=== PATIENT | male | born 1935 | race Caucasian/White ===

== ENCOUNTER 2017-11-22 17:30 | Outpatient (RCR) | payer MEDICARE, OTHER, SELFPAY ==
--- NOTE | 2017-09-28 11:25 | HP.PTEVAL_ITS ---
Patient's Visit Information SHERRY MOHAMUD is a 82 year old M referred to Physical Therapy by Gabriel CASTILLO with a diagnosis of abnormality of gait. Date of Evaluation: 09/28/17 Physical Therapist: Janice Mckinnon - Visit Plan Frequency: 2x /Week Duration: 4 Weeks Plan: 2X/ week for 4 weeks for testing on the NeuroCom, LE strengthening, balance activities with HEP!!!! - Subjective Subjective: Pt reports that he has weakness in his lower legs and a problems with balance. This has been off and on the last 6 mo to a year. Pt had pneumonia about a year ago but he does not feel that had contributed. Pt reports that if he leans fw he will keep going. Sometimes when he is doing things he will feel a little off balance. He feels that if he falls he can not get back up unless he has somethign to hold onto. Pt fell within the last 3 mo twice at the most. He was walking the dog on uneven ground and fell. He is worse on uneven ground. No dizziness. He takes pills for BP/ He can go up and down stairs with a railing. Pt is unable to get up out of a chair unless he uses his arms. He has a lounge chair at home but needs to use his arms. - Objective Sit to stand: needs UE's to be able to get up out of the chair. Gait: Walks with slightly decreased stride bit overall a normal gait pattern. LE MMT:B hip abd 4-/5, B hip ext 3-/5, R hip flexion 4-/5, L 4/5, B knee flex 4/5, B knee ext 4/5. Heel X3 no problems and toe raise X 3 pt had increase LOB retro and fw to the point he took a step fw to catch himself. FGA: 23. CATSIB 110/120. Tight gastro and HS B. Stairs: up and down recip with 1 hand rail with evidence of LE weakness the farther up the stairs he got. - Balance Scores Functional Gait Assessment Score: 23 % Disability: 23.3400 CATSIB Score (Max score 120 seconds): 110 - Goals Goal 1:: I HEP Goal Time Frame: 4-6 Weeks Goal 2:: Be able to get up from a chair without UE's 5/5 times Goal Time Frame: 4-6 Weeks Goal 3:: Increase hip abd and hip extension, and hip flex strength by 1/2 muscle grade (LE MMT:B hip abd 4-/5, B hip ext 3-/5, R hip flexion 4-/5, L 4/5, B knee flex 4/5, B knee ext 4/5 Goal Time Frame: 6-8 Weeks Goal 4:: Be able to heel and toe raise X 10 with good balance without UE support Goal Time Frame: 6-8 Weeks Goal 5:: Increase FGA by 4 points to 27/30 Goal Time Frame: 6-8 Weeks Goal 6:: Test pt on Neurocom Goal Time Frame: 2 Weeks - Rehabilitation Potential Rehabilitation Potential: Good - Anticipated Interventions Patient/Client Instruction: Educate patient on: Plan of Care For the Purpose of:: To improve muscle performance and motor function, To improve ability of physical actions for home/community/work/leisure, To improve gait and locomotor functions, To increase flexibility/ROM, To improve balance Therapeutic Exercise to Include: Strength training, Balance training, Flexibilty training, Gait and locomotor training For the Purpose of:: To improve muscle performance and motor function, To improve ability to perform ADL's, To increase tolerance to activity/condition/ position, To improve gait and locomotor functions, To improve balance Functional Training to Include: Gait training For the Purpose of:: To improve gait and locomotor functions Thank you for the opportunity to evaluate your patient. For Medicare and Medicare HMO plans, please review the plan of care and approve it. It will need to be FAXED BACK to us at [phone] for Medicare purposes. Please let me know if there are questions or concerns regarding this plan of care. Physician Signature: Date:
--- NOTE | 2017-10-05 14:18 | HP.PTCOM ---
PT Communication Note 10/05/[address] Gabriel CASTILLO, Thank you for the referral of Agustin Winn to our clinic. He was tested on our NeuroCom Equ[employer] system today and enclosed are the patients test results. On the Sensory Organization Test (SOT), he scored slightly below age related norms for overall composite score. He has good use of his somatosensory system to help him maintain his balance. He had decrease use of his vestibular system to help him control his balance and a slight decrease in vision. His overall ankle strategy is ankle dominant. His COG is slightly fw. On the Motor Control Test (MCT), his overall reaction time is good for someone of his age compared to age related norms. On the Limits of Stability Test (LOS), he had LOB to the point he touched the wall when controlling his weight shift to the Left. Weight shifting in all other planes was normal. At this point, we will see the pt 2X/ week for 4 weeks to work on vestibular inputs, picking objects up from the floor and working on control of not falling forward, LE strengthening with HEP. Sincerely, Janice Mckinnon Contact Information
--- NOTE | 2017-10-29 13:33 | HP.PTREVAL_ITS ---
DR.VVELAS Mikey It has been my pleasure to treat SHERRY MOHAMUD over the last 7 visits for abnormality of gait. Please see the progress note below for an update on the physical therapy plan of care! Subjective: Pt reports that he thinks that he is getting better. He reports that he thinks his balance is better and that he has no pain Objective/Function: sit to stand 4/5. FGA: 24 (still had trouble with walking with horizontal head turns). LE MMT: MMT:B hip abd 4-/5, B hip ext 3-/5, R hip flexion 4/5, L 4/5, B knee flex 4/5, B knee ext 4/5. Pt was able to do X 10 heel raises without UE support without LOB. Pt had some LOB but caught self at 7/10 toe raises Plan Plan: Give for HEP: heel and toe raises, clam shells, bridges for home next visit. See the pt 2X/ week for 3 weeks for challenges to his vestibular system (on and off the NeuroCOM) as well as working on bending fw without falling fw, WALKING WITH HEAD TURNS, functional activities, LE strengthening with HEP Goals Goal 1:: I HEP Goal Time Frame: 4-6 Weeks Goal Progress: Progressing Goal 2:: Be able to get up from a chair without UE's 5/5 times Goal Time Frame: 4-6 Weeks Goal Progress: Progressing Goal 3:: Increase hip abd and hip extension, and hip flex strength by 1/2 muscle grade (LE MMT:B hip abd 4-/5, B hip ext 3-/5, R hip flexion 4-/5, L 4/5, B knee flex 4/5, B knee ext 4/5 Goal Time Frame: 6-8 Weeks Goal Progress: Progressing Goal 4:: Be able to heel and toe raise X 10 with good balance without UE support Goal Time Frame: 6-8 Weeks Goal Progress: Progressing Goal 5:: Increase FGA by 4 points to 27/30 Goal Time Frame: 6-8 Weeks Goal Progress: Progressing Goal 6:: Test pt on Neurocom Goal Time Frame: 2 Weeks Goal Progress: Goal Met Anticipated Interventions Patient/Client Instruction: Educate patient on: Plan of Care For the Purpose of:: To improve muscle performance and motor function, To improve ability of physical actions for home/community/work/leisure, To improve gait and locomotor functions, To increase flexibility/ROM, To improve balance Therapeutic Exercise to Include: Strength training, Balance training, Flexibilty training, Gait and locomotor training For the Purpose of:: To improve muscle performance and motor function, To improve ability to perform ADL's, To increase tolerance to activity/condition/ position, To improve gait and locomotor functions, To improve balance Functional Training to Include: Gait training For the Purpose of:: To improve gait and locomotor functions Please do not hesitate to contact me at [phone] by phone or Fax: if you have questions or concerns regarding this new plan of care! Sincerely, Janice Mckinnon
--- NOTE | 2017-11-24 17:23 | HP.PTDCNRP_ITS ---
HP - Discharge Summary (1) - Patient Information SHERRY MOHAMUD was seen in my office for initial evaluation on 09/28/17. The following Plan of Care was established for this patient: Initial Frequency: 2x /Week Initial Duration: 4 Weeks - Anticipated Interventions Patient/Client Instruction: Educate patient on: Plan of Care For the Purpose of:: To improve muscle performance and motor function, To improve ability of physical actions for home/community/work/leisure, To improve gait and locomotor functions, To increase flexibility/ROM, To improve balance Therapeutic Exercise to Include: Strength training, Balance training, Flexibilty training, Gait and locomotor training For the Purpose of:: To improve muscle performance and motor function, To improve ability to perform ADL's, To increase tolerance to activity/condition/ position, To improve gait and locomotor functions, To improve balance Functional Training to Include: Gait training For the Purpose of:: To improve gait and locomotor functions This patient was last seen in our office . Pertinent comments regarding their Physical therapy will appear below: At this point I will be discontinuing this patient from physical therapy. I would be happy to see this patient again in the future if found appropriate by the physician. Thank you! Janice Mckinnon
== END 2017-11-22 19:00 | disposition home or self-care (01) ==
LOC: PT 17:30
PROVIDERS: Family Provider Internal Medicine; PCP Internal Medicine; Visit Provider Internal Medicine
DX: R26.9 Unspecified abnormalities of gait and mobility (principal)
CPT/HCPCS: 97110; 97161; 97530; 97750

== ENCOUNTER → 2017-12-08 08:23 | Outpatient (CLI) | payer MEDICARE, OTHER, SELFPAY ==
[2017-12-08 09:19] LABS: AST(SGOT) 18 U/L (15-37); Alanine Aminotransfer ALT/SGPT 16 U/L (16-61); Albumin, Serum 3.5 g/dL (3.2-5.0); Alkaline Phosphatase 89 U/L (45-117); Bilirubin, Direct 0.23 mg/dL (0.00-0.30); Cholesterol 119 mg/dL (200); Globulin 3.8 g/dL (2.2-4.2); High Density Lipoprotein 34 mg/dL; Protein, Total 7.3 g/dL (6.4-8.2); Triglycerides 157 mg/dL; Very Low Density Lipoprotein 31 mg/dL (5-40)
== END ==
PROVIDERS: Family Provider Internal Medicine; PCP Internal Medicine; Visit Provider Internal Medicine Cardiovascular Disease
DX: E78.5 Hyperlipidemia, unspecified (principal); I10 Essential (primary) hypertension; I25.10 Atherosclerotic heart disease of native coronary artery without angina pectoris; Z95.1 Presence of aortocoronary bypass graft
CPT/HCPCS: 36415; 80061; 80076

== ENCOUNTER → 2018-12-13 09:19 | Outpatient (CLI) | payer MEDICARE, OTHER, SELFPAY ==
[2018-12-13 08:53] VITALS: BMI 18.3
[2018-12-13 10:27] LABS: Absolute Lymphocyte Count 0.57 X10^3/ul (0.83-4.51); Absolute Neutrophil Count 6.4 X10^3/uL (2.0-7.7); Basophil# 0.02 X10^3/uL; Basophil% 0.3 % (0-1); Differential Indicated SCAN CRITERIA MET; Eosinophil# 0.11 X10^3/uL; Eosinophils% 1.5 % (0-5); Hematocrit 42.6 % (40-54); Hemoglobin 13.6 g/dl (13.0-16.5); Lymphocyte # 0.57 X10^3/ul (4.0); Lymphocyte % 7.6 % (19-41); Mean Corp Hgb Conc 31.9 g/gl (32-36); Mean Corpuscular Hgb 31.5 pg (27.0-32.0); Mean Corpuscular Volume 98.6 fL (80-94); Mean Platelet Vol. 10.3 fl (6.2-12.0); Monocyte# 0.33 X10^3/uL; Monocyte% 4.4 % (0-10); Neutrophil # 6.44 X10^3/uL (2.7-7.7); Neutrophil % 86.1 % (47-70); POSITIVE COUNT NO; POSITIVE DIFFERENTIAL YES; POSITIVE MORPHOLOGY NO; Platelet Count 463 K/mm3 (150-450); RBC Distribution Width CV 15.2 % (11.6-14.6); RBC Distribution Width SD 52.8 fl (35.1-43.9); Red Blood Count 4.32 M/mm3 (4.6-6.2); White Blood Count 7.5 K/mm3 (4.4-11.0)
[2018-12-13 11:43] LABS: AST(SGOT) 17 U/L (15-37); Alanine Aminotransfer ALT/SGPT 20 U/L (16-61); Albumin, Serum 3.6 g/dL (3.2-5.0); Alkaline Phosphatase 80 U/L (45-117); Anion Gap 5 (5-15); BUN 25 mg/dL (7-18); BUN/Creat Ratio 24.8 RATIO (10-20); Bilirubin, Direct 0.07 mg/dL (0.00-0.30); Calcium,Total 8.6 mg/dL (8.5-10.1); Chloride 112 mmol/L (98-107); Cholesterol 122 mg/dL (200); Creatinine, Serum 1.01 mg/dL (0.70-1.30); EST Glomerular Filtration Rate 75 mL/min (>60); Est Glom Filt Rate - Afr Amer 90 mL/min (>60); Globulin 3.2 g/dL (2.2-4.2); Glucose 128 mg/dL (74-106); High Density Lipoprotein 35 mg/dL; Potassium 4.1 mmol/L (3.5-5.1); Protein, Total 6.8 g/dL (6.4-8.2); Sodium Level 141 mmol/L (136-145); Thyroid Stim Hormone (TSH) 2.03 uIU/mL (0.358-3.74); Triglycerides 132 mg/dL; Very Low Density Lipoprotein 26 mg/dL (5-40)
== END ==
PROVIDERS: Family Provider Internal Medicine; PCP Internal Medicine; Referring Provider Internal Medicine Cardiovascular Disease; Visit Provider Internal Medicine Cardiovascular Disease
DX: I10 Essential (primary) hypertension (principal); E78.00 Pure hypercholesterolemia, unspecified
CPT/HCPCS: 36415; 80048; 80061; 80076; 84443; 85025

== ENCOUNTER 2019-07-14 08:08 | Emergency (ER) | payer MEDICARE, OTHER, SELFPAY ==
[2018-12-13 08:53] VITALS: BMI 18.3
[2019-07-14 08:10] VITALS: BP 164/69; PULSE 83; RESP 16; TEMP 36.9; O2SAT 99; BMI 19.2
--- NOTE | 2019-07-14 08:15 | CT_ITS ---
STUDY: CT BRAIN WITHOUT CONTRAST REASON FOR EXAM: Male, 83 years old. Laceration to the left side of the head due to a fall. RADIATION DOSAGE (If Supplied By Facility): CTDIvol = ( 44.99 ) mGy, DLP = ( 812.98 ) mGycm TECHNIQUE: Transaxial CT imaging of the brain was performed without administration of intravenous contrast material. Individualized dose optimization techniques were used for this CT. COMPARISON: No relevant priors. FINDINGS: Small scalp hematoma overlying the left parietal bone. Normal calvarium. There is moderate cerebral atrophy with widening of the extra-axial spaces and ventricular dilatation. There are areas of decreased attenuation within the white matter tracts of the supratentorial brain, consistent with microvascular disease changes. Normal basal ganglia and thalami. Normal brainstem. There is mild cerebellar atrophy. There is no intracranial hemorrhage. There are no findings of an acute ischemic infarction. Atherosclerotic calcification of the vertebral arteries and cavernous portions of the internal carotid arteries bilaterally. Normal visualized paranasal sinuses. CT/Brain/Head without Contrast IMPRESSION: Chronic involutional changes of the brain. Electronically Signed: Devan Alamo, at 9:17 EDT , Service support ,
--- NOTE | 2019-07-14 08:16 | CT_ITS ---
STUDY: CT CERVICAL SPINE WITHOUT CONTRAST REASON FOR EXAM: Male, 83 years old. Laceration to the left side of the head due to a fall. RADIATION DOSAGE (If Supplied By Facility): CTDIvol = ( 14.83 ) mGy, DLP = ( 298.98 ) mGycm TECHNIQUE: High resolution transaxial imaging was performed without contrast material. Sagittal and coronal images were reconstructed. Individualized dose optimization techniques were used for this CT. COMPARISON: None FINDINGS: Normal craniovertebral junction. There are degenerative changes of the anterior atlantoaxial articulation. Normal odontoid process. Normal cervical lordosis. Normal vertebral bodies and posterior osseous elements. C2-3: Facet joint osteoarthritis and hypertrophy on the left side. No significant stenosis seen. C3-4: Minimal anterior listhesis of C3 on C4 most likely secondary to the facet joint osteoarthritis and hypertrophy worse on the right side. Uncovertebral arthrosis with moderate degree of bilateral neural foraminal stenosis. C4-5: Mild degree of disc space narrowing. Spondylosis. Facet joint osteoarthritis and hypertrophy worse on the right side. No significant stenosis seen. C5-6: Mild degree of disc space narrowing. Spondylosis. Uncal vertebral arthrosis. Mild degree of bilateral neural foraminal stenosis. C6-7: Moderate degree of disc space narrowing. Spondylosis. Uncovertebral arthrosis and facet joint osteoarthritis. C7-T1: Normal endplates. Normal disc height and morphology. Normal central canal and intervertebral neuroforamina. Normal visualized soft tissue structures. CT/Spine Cervical without Contras IMPRESSION: Multilevel degenerative changes, as described above. Electronically Signed: Devan Alamo, at 8:56 EDT , Service support ,
--- NOTE | 2019-07-14 08:17 | ED.VIS.GEN ---
History of Present Illness Chief Complaint: Head Injury Narrative: 83-year-old male was walking into his office this morning when he tripped on a step and struck the left side of his head against asphalt. He did not lose consciousness. He recalls all details the event. He complains of mild left shoulder pain as well but otherwise denies other injuries. He was able to get back up on his own. He has no lower extremity pain. He has a mild headache at this time. He sustained a laceration to the left side of his head. The onset of his symptoms was sudden. The severity is moderate. There are no relieving or exacerbating factors. Capacity - Capacity Assessment Tool Can the patient make a choice & communicate that choice?: Yes Past Medical History - Allergies and Home Meds Allergies/Adverse Reactions: Allergies No Known Allergies Allergy (Verified 07/14/19 08:12) Primary Care Physician: Gabriel Mares MD [Primary Care Provider] - Prior records reviewed: Yes Surgical History: coronary bypass surgery - ?3, tonsillectomy Smoking Status: Former smoker - Family History Paternal Family History: Family History (Last Reviewed 12/13/18 @ 09:04 by Buster Rosario MD) Father CAD (coronary artery disease) Myocardial infarction Mother No problems noted. Family History: Reports: Seizures Sibling Family History: Family History (Last Reviewed 12/13/18 @ 09:04 by Buster Rosario MD) Father CAD (coronary artery disease) Myocardial infarction Mother No problems noted. Family History: Reports: Diabetes Offspring Family History: Family History (Last Reviewed 12/13/18 @ 09:04 by Buster Rosario MD) Father CAD (coronary artery disease) Myocardial infarction Mother No problems noted. Family History: Reports: High Cholesterol Review of Systems All systems negative except as indicated General: Denies: Chills, Fever, Sweats Eyes: Denies: Visual changes - bilaterally, Diplopia ENT: Denies: Rhinorrhea, Sore throat Cardiovascular: Denies: Chest pain, Palpitations Respiratory: Denies: Dyspnea, Cough, Dyspnea on exertion Gastrointestinal: Denies: Abdominal pain, Nausea, Vomiting, Diarrhea, Melena, Hematochezia Genitourinary: Denies: Dysuria, Hematuria, Frequency Musculoskeletal: Denies: Back pain, Extremity Pain Skin: Denies: Rash, Wounds Neurological: Reports: Headache. Denies: Weakness, Numbness Physical Exam Vital Signs/Narrative: Vital Signs Temp Pulse Resp BP Pulse Ox 07/14/19 08:10 98.5 F 83 16 164/69 H 99 General: Well nourished, Well developed Head: Normocephalic, Atraumatic, - - 1cm laceration left scalp Eyes: Perrl, EOMI ENT: Moist mucous membranes, No rhinorrhea Neck: Supple, Nontender Cardiovascular: Regular rate, Regular rhythm, No murmurs Respiratory: No distress, CTA bilaterally, Chest nontender Abdomen: Soft, Nontender, Nondistended, Normal bowel sounds Back: Nontender, Normal Inspection Extremities: No edema, Tenderness - left shoulder laterally Skin: Normal color, No rash Neurological: Alert, Oriented x3, Cranial nerves II-XII grossly intact, Normal Strength, Normal Sensation Psychological: Normal affect, Normal Mood Diagnostic/Tx/Re-eval - Medical Decision Making I reviewed his images. He has a nondisplaced left clavicle fracture at the distal aspect. He was placed in a sling. He will be referred to orthopedics. His CT brain and cervical spine are both negative. He looks well. He can ambulate here without difficulty. Neurologic exam is normal. I examined his laceration under direct lighting with good hemostasis. The tissue was contused and there is possibly a less than half centimeter laceration. We discussed repairing it however it is quite small and the bleeding is well controlled so we both agreed to allow this to heal by secondary intention. He will return here for any changes or concerns. He was discharged in stable condition. ED Disposition - Plan for ED Patient: Disposition: Home or Assisted Living Diagnosis: Closed left clavicular fracture, Concussion without loss of consciousness, initial encounter, Scalp laceration Instructions: HEAD INJURY, No Wake-Up (Adult), FRACTURE, Clavicle Referrals: Keith Guevara DO [STAFF PHYSICIAN] -
--- NOTE | 2019-07-14 08:43 | RAD_ITS ---
STUDY: X-RAY - LEFT SHOULDER REASON FOR EXAM: Male, 83 years old. Left shoulder pain following a fall. TECHNIQUE: 4 view(s) of the shoulder. COMPARISON: None. FINDINGS: Normal glenohumeral articulation. Normal acromioclavicular joint. Normal acromion. Nondisplaced fracture of the distal aspect of the left clavicle. Normal humeral head and visualized proximal humerus. The soft tissue structures are unremarkable. Normal visualized pulmonary apex. RAD/Shoulder min 2 Views IMPRESSION: Nondisplaced fracture of the lateral distal aspect of the left clavicle. Electronically Signed: Devan Alamo, at 9:24 EDT , Service support ,
== END 2019-07-14 09:57 | disposition home or self-care (01) ==
PROVIDERS: Emergency Provider Emergency Medicine; Family Provider Internal Medicine; PCP Internal Medicine
DX: S01.01XA Laceration without foreign body of scalp, initial encounter (principal); S42.002A Fracture of unspecified part of left clavicle, initial encounter for closed fracture; S06.0X0A Concussion without loss of consciousness, initial encounter; S42.035A Nondisplaced fracture of lateral end of left clavicle, initial encounter for closed fracture; Z82.49 Family history of ischemic heart disease and other diseases of the circulatory system; Z87.891 Personal history of nicotine dependence; W18.09XA Striking against other object with subsequent fall, initial encounter; Y93.9 Activity, unspecified; Y92.89 Other specified places as the place of occurrence of the external cause; Y99.9 Unspecified external cause status; Z95.1 Presence of aortocoronary bypass graft
CPT/HCPCS: 70450; 72125; 73030; 99284

== ENCOUNTER 2020-04-10 21:13 | Emergency (ER) | payer MEDICARE, SELFPAY ==
[2020-04-10 21:14] VITALS: BP 161/76; PULSE 90; RESP 16; TEMP 36.8; O2SAT 97; BMI 18.8
--- NOTE | 2020-04-10 22:11 | CT_ITS ---
STUDY: CT BRAIN WITHOUT CONTRAST REASON FOR EXAM: Male, 84 years old. REACHING OVER FOR PHONE, FELL AND HIT HEAD ON CONCRETE RADIATION DOSAGE (If Supplied By Facility): CTDIvol = ( 44.99 ) mGy, DLP = ( 863.60 ) mGycm TECHNIQUE: Transaxial CT imaging of the brain was performed without administration of intravenous contrast material. Individualized dose optimization techniques were used for this CT. COMPARISON: July 14, 2019 FINDINGS: There is subcutaneous edema overlying the left frontal calvarium consistent with recent trauma. Normal calvarium. There is mild cerebral atrophy with widening of the extra-axial spaces and ventricular dilatation. There are areas of decreased attenuation within the white matter tracts of the supratentorial brain, consistent with microvascular disease changes. Normal basal ganglia and thalami. Normal brainstem. There is mild cerebellar atrophy. There is no intracranial hemorrhage. There are no findings of an acute ischemic infarction. Normal visualized paranasal sinuses. CT/Brain/Head without Contrast IMPRESSION: Chronic involutional changes of the brain. Small vessel ischemia. Electronically Signed: Alyse Rome MD at 22:41 EDT Tel , Service support ,
--- NOTE | 2020-04-10 22:22 | ED.DCSUM_ITS ---
History of Present Illness Chief Complaint: Fall Informant: Patient, Family Narrative: 84-year-old male presenting with laceration to the top of his head. He states he was bending over to grab his phone lost his balance and hit his head. He states this is nothing new for him. He states he does not have much pain. He is not dizzy or lightheaded. He has no confusion. His daughter is accompanying him and states this is not out of the usual for him. He does have gait issues. Last tetanus is unknown. She believes he is been acting at his baseline. Past Medical History - Allergies and Home Meds Allergies/Adverse Reactions: Allergies No Known Allergies Allergy (Verified 04/10/20 21:17) Primary Care Physician: Gabriel Mares MD [Primary Care Provider] - Prior records reviewed: Yes Surgical History: coronary bypass surgery - ?3, tonsillectomy Lives: Alone Smoking Status: Never smoker Alcohol: None Drugs: None - Family History Paternal Family History: Family History (Last Reviewed 12/13/18 @ 09:[address] Buster Rosario MD) Father CAD (coronary artery disease) Myocardial infarction Mother No problems noted. Family History: Reports: Seizures Sibling Family History: Family History (Last Reviewed 12/13/18 @ 09:[address] Buster Rosario MD) Father CAD (coronary artery disease) Myocardial infarction Mother No problems noted. Family History: Reports: Diabetes Offspring Family History: Family History (Last Reviewed 12/13/18 @ 09:[address] Buster Rosario MD) Father CAD (coronary artery disease) Myocardial infarction Mother No problems noted. Family History: Reports: High Cholesterol Review of Systems General: Denies: Chills, Fever Eyes: Denies: Visual changes - bilaterally, Diplopia ENT: Denies: Rhinorrhea, Sore throat Cardiovascular: Denies: Chest pain, Palpitations Respiratory: Denies: Dyspnea, Cough, Dyspnea on exertion Gastrointestinal: Denies: Abdominal pain, Nausea, Vomiting, Diarrhea, Melena, Hematochezia Genitourinary: Denies: Dysuria, Hematuria, Frequency Skin: Reports: - - Laceration to the top of the scalp Neurological: Denies: Headache, Weakness Psych: Denies: Depression Physical Exam Vital Signs/Narrative: Vital Signs Temp Pulse Resp BP Pulse Ox 04/10/20 21:14 98.2 F 90 16 161/76 H 97 Inital Vital Signs reviewed: Yes General: Well nourished, Well developed, Acute Distress Head: Normocephalic, - - Laceration to the top of the scalp. Eyes: Perrl, EOMI, - - No apparent facial bone trauma. ENT: TM's clear, - - Hemotympanum. No nasal bone trauma. Neck: Nontender Cardiovascular: Regular rate, Regular rhythm Respiratory: No distress Skin: - - Laceration to the top of the scalp approximately 7 cm which is partial-thickness. No active bleeding. No skull deformities. Neurological: Alert, Oriented x3 Psychological: Normal affect Diagnostic/Tx/Re-eval Clinical Impression(s) from Imaging Studies Brain CT 04/10/20 22:11 IMPRESSION: Chronic involutional changes of the brain. Small vessel ischemia. Electronically Signed: Alyse Rome MD at 22:41 EDT Tel , Service support , - Medical Decision Making Presents with scalp laceration after fall when he was trying to reach over and lemon picker his phone. He has no focal neurologic symptoms either before or after. Her daughter and he both feel he is at his baseline. Aspirin daily and did sustain a laceration of his head so I did CT his brain which does not show any acute process. His tetanus was updated. His wound was sutured. He was given wound instructions and return precautions. Patient stable for discharge this time. Procedures - Lacerations No standard instances Depth: Skin Shape: Linear Prep: Sterile Conditions, Chlorhexadine Laceration repair: Irrigated, - - l.e.t. topical Irrigated (ml): 250 Number of Sutures/[place]: 5 - [facility] ED Disposition - Plan for ED Patient: Diagnosis: Closed head injury, Scalp laceration Instructions: ED Head Injury Adult, ED Laceration All Closures Referrals: Gabriel Mares MD [Primary Care Provider] -
[2020-04-10] MEDS: Lidocaine/Epi/Tetracaine 50 ML 1 APPLIC TOPICAL (22:27)
[2020-04-10] MEDS: Diphth,Pertuss(Acell),Tet Vac 0.5 ML Vial IM (22:45)
[2020-04-11 00:03] VITALS: BP 155/72; PULSE 74; RESP 16; O2SAT 97
== END 2020-04-11 00:04 | disposition home or self-care (01) ==
LOC: ED 22:34
PROVIDERS: Emergency Provider Student in an Organized Health Care Education/Training Program; PCP Internal Medicine
DX: S01.01XA Laceration without foreign body of scalp, initial encounter (principal); W22.8XXA Striking against or struck by other objects, initial encounter; Y93.9 Activity, unspecified; Y92.89 Other specified places as the place of occurrence of the external cause; Y99.9 Unspecified external cause status; R26.9 Unspecified abnormalities of gait and mobility; Z23 Encounter for immunization; Z82.49 Family history of ischemic heart disease and other diseases of the circulatory system
CPT/HCPCS: 12002; 70450; 90471; 90715; 99283

== ENCOUNTER 2020-10-11 11:26 | Outpatient (RCR) | payer MEDICARE, SELFPAY | END 2020-10-11 23:59 | LOC: IMMUN 11:26 | PROVIDERS: PCP Internal Medicine; Visit Provider Family Medicine | DX: Z23 Encounter for immunization (principal) | CPT/HCPCS: 0011A; 0012A; 91301 ==

== ENCOUNTER 2021-10-19 15:12 | Observation (INO) | payer MEDICARE, SELFPAY ==
[2021-10-19] VITALS (7 sets, daily range): BP systolic 101–133; BP diastolic 40–63; PULSE 72–88; RESP 14–20; TEMP 36.4–38.2; O2SAT 96–100; BMI 21.4; BMI 19.9
--- NOTE | 2021-10-19 15:25 | CT_ITS ---
EXAMINATION : Head CT w/out contrast HISTORY : headache, confusion COMPARISON : 04/10/2020. TECHNIQUE : Multiple contiguous axial images were obtained from the skull base to the vertex without intravenous contrast. A radiation dose optimization technique was used for this scan. FINDINGS : There is no evidence for acute intracranial hemorrhage, mass effect, or midline shift. There is no extra-axial fluid collection. There are periventricular white matter changes consistent with chronic microvascular ischemic disease. There is sulcal widening and ventricular enlargement consistent with cerebral atrophy. 5 mm hypodensity in the left caudate nucleus, unchanged since prior. The skull base and calvarium are unremarkable. The orbits are unremarkable. The paranasal sinuses are clear. The mastoid air cells are well-aerated. The soft tissues are unremarkable. CT/Brain/Head without Contrast IMPRESSION: No acute intracranial abnormality. 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 Chronic involutional and ischemic changes of the brain. Electronically Signed: Simon Frank MD at 16:18 EST ,
--- NOTE | 2021-10-19 15:25 | RAD_ITS ---
INDICATION: cough fever EXAMINATION/TECHNIQUE: X-RAY - XR Chest 1 View COMPARISON: 07/14/2019. FINDINGS: The lungs are clear. Sternal cerclage wires and vascular clips are present from a prior sternotomy and coronary artery bypass graft procedure (CABG). Tortuous and calcified thoracic aorta. The heart is not enlarged. No pleural effusion or pneumothorax. Degenerative changes of the thoracic spine. RAD/Chest 1 View (Portable) IMPRESSION: No acute radiographic abnormalities. Electronically Signed: Simon Frank MD at 16:20 EST ,
--- NOTE | 2021-10-19 15:25 | EKG12_ITS ---
Test Reason : FEVER Blood Pressure : / mmHG Vent. Rate : 080 BPM Atrial Rate : 080 BPM P-R Int : 166 ms QRS Dur : 076 ms QT Int : 368 ms P-R-T Axes : 023 049 036 degrees QTc Int : 424 ms Normal sinus rhythm ST & T wave abnormality, consider lateral ischemia Abnormal ECG Confirmed by DONALD DAVALOS, DU ([id number]), production editor DENA CARO ([id number]) on 10/20/2021 11:04:14 AM Referred By: BB Confirmed By:DU BENNETT MD
--- NOTE | 2021-10-19 15:27 | EX.ED.DYSGE1 ---
HPI History of Present Illness Chief Complaint: Fever Informant: patient and EMS Narrative Narrative: Patient states he has been ill for a total of 7 or 10 days according to the patient who is confused, history is somewhat limited but he can perform review of systems. Feeling weak, fevers, he members having headache and vomiting but not today. He denies any pain in his chest or abdomen. He has edema in his legs that he states is not new. Daughter arrived later and provided better history; he has a chronic cough that is not necessarily worse, he started vomiting and having confusion with a fever last night and worsened to this morning. She states he has had some occasional episodes of disorientation but not like this, this is much worse. He also was diagnosed with normal pressure hydrocephalus, which they have been monitoring without a shunt. [facility] Medical History (Updated 10/19/21 @ 17:[address] 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 Type II diabetes mellitus Home Medications aspirin 81 mg PO QHS 04/02/16 [History Last Taken 04/01/16] atorvastatin 20 mg PO QHS 04/02/16 [History Last Taken 04/01/16] ramipril 5 mg PO DAILY 04/02/16 [History Last Taken 04/02/16] bevacizumab 25 mg/mL intravenous solution 1.25 mg INTRAVIT .COMPLEX 12/08/17 [History Last Taken Unknown] hydroxyurea 500 mg capsule 500 mg PO .COMPLEX 12/08/17 [History Last Taken Unknown] ciprofloxacin HCl 1 drp OPHTHALMIC (EYE) Q4 04/10/20 [History Last Taken Unknown] metoprolol tartrate 25 mg tablet 25 mg PO BID #180 tab 10/07/21 [Rx Last Taken Unknown] tamsulosin 0.4 mg PO DAILY 10/19/21 [History Last Taken Unknown] Allergy/AdvReac Type Severity Reaction Status Date / Time No Known Allergies Allergy Verified 10/19/21 15:23 Family History Father CAD (coronary artery disease) Myocardial infarction Mother , age 80+, cause not listed No problems noted. Surgical History History of bronchoscopy History of left heart catheterization S/P CABG x 3 Social History Smoking Status: Never smoker ROS ROS ED Constitutional Constitutional ED: Reports fatigue, fever(s) and weakness; Denies chills Eyes Eyes: Denies change in vision or diplopia ENT ENT ED: Denies rhinorrhea or sore throat Cardiovascular Cardiovascular: Denies chest pain or palpitations Respiratory/Chest Respiratory/Chest: Reports cough; Denies dyspnea Gastrointestinal Gastrointestinal: Reports other Details: Vomiting in recent past but not currently nauseated ; Denies abdominal pain or diarrhea Genitourinary Genitourinary ED: Denies dysuria or hematuria Musculoskeletal Musculoskeletal: Denies back pain or neck pain Integumentary Denies abscess or rash Neurologic Neurologic: Reports confusion; Denies headache(s), paresthesias or weakness Psychiatric Psychiatric: Denies anxiety or suicidal thoughts EXAM Physical Exam Const Vital Signs: 10/19/21 15:14 10/19/21 15:19 10/19/21 15:29 Temperature 100.8 F H Temperature Source Oral Pulse Rate 88 Respiratory Rate 20 H Respiratory Effort Normal Non-Labored Respiratory Pattern Normal Blood Pressure 133/59 H Blood Pressure Mean 83 Pulse Ox 99 Oxygen Delivery Method Room Air Room Air 10/19/21 17:09 Temperature Temperature Source Pulse Rate 79 Respiratory Rate 14 Respiratory Effort Respiratory Pattern Blood Pressure 104/63 Blood Pressure Mean 76 Pulse Ox 97 Oxygen Delivery Method Room Air Positive well nourished and well developed General Appearance ED: well developed and NAD HEENT Reports moist mucous membranes normocephalic and atraumatic Eyes PERRL and EOMs intact bilaterally Neck full ROM and supple Resp normal respiratory effort and clear to auscultation bilaterally Cardio regular rate, regular rhythm and no murmurs GI non-tender and non-distended Auscultation: normoactive bowel sounds Palpation: soft; Negative for pulsatile mass Back/Spine no CVA tenderness General Back: other FROM Extremity normal to inspection General Extremety ED: Negative for edema, pulses abnormal or tenderness General Extremity: Negative for edema or pulses abnormal Neuro CN's II-XII intact bilaterally and no sensory deficits noted Sensorium / Orientation: awake, alert, oriented to person and oriented to place; Negative for oriented to time Meningeal Signs: no meningeal signs Motor Exam: strength 5/5 throughout Skin no rashes or lesions noted and no wounds MDM MDM MDM Narrative Medical decision making narrative: Labs are remarkable for the lack of a leukocytosis, but his Covid is negative as is his influenza swab, his troponin is nonspecifically elevated at 124, which may or may not be related to his mild CRISTI, which appears to be prerenal. Chest x-ray shows no evidence of source of his fever, and his lactic acid is within normal limits. CT head shows no obvious reason for his mental status change, which I suspect is related more to his fever. His urine shows no sign of acute infection. It is possible he has a false negative Covid test, I will send a PCR and given his confusion and altered mental status and elevated troponin, plan is to admit him to observation telemetry. Lab Data Attestation: I reviewed the patient's lab results. Labs: Laboratory Results - last 24 hr 10/19/21 10/19/21 10/19/21 15:18 15:18 15:18 WBC 5.8 RBC 3.18 L Hgb 11.0 L Hct 33.5 L MCV 105.3 H MCH 34.6 H MCHC 32.8 RDW Std Deviation 58.8 H RDW Coeff of Andrew 15.1 H Plt Count 346 MPV 10.7 Immature Gran % (Auto) 0.900 Neut % (Auto) 93.4 H Lymph % (Auto) 3.1 L [place] % (Auto) 2.6 Eos % (Auto) 0.0 Baso % (Auto) 0.0 Absolute Neuts (auto) 5.4 Absolute Lymphs (auto) 0.18 L Nucleated RBC % 0 Differential Comment SCANNED PT 14.9 INR 1.2 APTT 35.3 Sodium 144 Potassium 4.3 Chloride 114 H Carbon Dioxide 25.0 Anion Gap 5 BUN 24 H Creatinine 1.63 H Estim Creat Clear Calc 31.48 Est GFR (MDRD) Af Amer 52 L Est GFR (MDRD) Non-Af 43 L BUN/Creatinine Ratio 14.7 Glucose 145 H Lactic Acid Calcium 7.8 L Total Bilirubin 0.80 AST 22 ALT 26 Alkaline Phosphatase 87 Troponin I High Sens 124 H* Total Protein 6.2 L Albumin 3.0 L Globulin 3.2 Albumin/Globulin Ratio 0.9 Urine Color Urine Clarity Urine pH Ur Specific [place] Urine Protein Urine Glucose (UA) Urine Ketones Urine Occult Blood Urine Nitrite Urine Bilirubin Urine Urobilinogen Ur Leukocyte Esterase 10/19/21 10/19/21 15:18 16:54 WBC RBC Hgb Hct MCV MCH MCHC RDW Std Deviation RDW Coeff of [place] Plt Count MPV Immature Gran % (Auto) Neut % (Auto) Lymph % (Auto) [place] % (Auto) Eos % (Auto) Baso % (Auto) Absolute Neuts (auto) Absolute Lymphs (auto) Nucleated RBC % Differential Comment PT INR APTT Sodium Potassium Chloride Carbon Dioxide Anion Gap BUN Creatinine Estim Creat Clear Calc Est GFR (MDRD) Af Amer Est GFR (MDRD) Non-Af BUN/Creatinine Ratio Glucose Lactic Acid 1.9 Calcium Total Bilirubin AST ALT Alkaline Phosphatase Troponin I High Sens Total Protein Albumin Globulin Albumin/Globulin Ratio Urine Color Yellow Urine Clarity Clear Urine pH 5.0 Ur Specific [place] 1.020 Urine Protein 100 H Urine Glucose (UA) Normal Urine Ketones Negative Urine Occult Blood 50 H Urine Nitrite Negative Urine Bilirubin Negative Urine Urobilinogen Normal Ur Leukocyte Esterase Negative Radiography Diagnostic Testing: Clinical Impression(s) from Imaging Studies Brain CT 10/19/21 15:25 IMPRESSION: No acute intracranial abnormality. 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 Chronic involutional and ischemic changes of the brain. Electronically Signed: Simon Frank MD at 16:18 EST , Chest X-Ray 10/19/21 15:25 IMPRESSION: No acute radiographic abnormalities. Electronically Signed: Simon Frank MD at 16:20 EST , EKG Initial EKG: Attestation: I personally reviewed and interpreted this EKG as follows: Interpretation: Sinus Rhythm, No Acute Injury Pattern and Non-Specific ST Changes (Diffusely except for anterior septal normal T waves) Prior EKG tracings: available for review Prior: Unchanged Discharge Plan Dx/Rx/DC Orders Clinical Impression: Altered mental status, Elevated troponin, CRISTI (acute kidney injury), Fever Disposition Disposition: Acute Care Hospital [facility]
[2021-10-19] MEDS: Acetaminophen 325 MG Tablet 650 MG PO (15:39)
[2021-10-19] MEDS: 0.9% Normal Saline 1,000 ML 100 ML IV ×2 (15:41→19:57)
[2021-10-19 15:46] LABS: Absolute Lymphocyte Count 0.18 X10^3/uL (0.83-4.51); Absolute Neutrophil Count 5.4 X10^3/uL (2.0-7.7); Hematocrit 33.5 % (40-54); Lymphocyte # 0.18 X10^3/ul (0.83-4.51); Lymphocyte % 3.1 % (19-41); Mean Corp Hgb Conc 32.8 g/dL (32-36); Mean Corpuscular Hgb 34.6 pg (27.0-32.0); Mean Corpuscular Volume 105.3 fL (80-94); Mean Platelet Vol. 10.7 fl (6.2-12.0); Monocyte# 0.15 X10^3/uL; Monocyte% 2.6 % (0-10); NRBC Flagged by Analyzer 0 % (0-5); Neutrophil # 5.43 X10^3/uL (2.7-7.7); Neutrophil % 93.4 % (47-70); POSITIVE DIFFERENTIAL YES; Platelet Count 346 K/mm3 (150-450); RBC Distribution Width CV 15.1 % (11.6-14.6); RBC Distribution Width SD 58.8 fl (35.1-43.9); Red Blood Count 3.18 M/mm3 (4.6-6.2); White Blood Count 5.8 K/mm3 (4.4-11.0)
[2021-10-19 15:51] LABS: International Normalized Ratio 1.2; Partial Thromboplast Time 35.3 Seconds (24.1-36.2); Prothrombin Time (Protime)PT. 14.9 SECONDS (11.7-14.9)
[2021-10-19 15:58] LABS: Lactic Acid 1.9 mmol/L (0.4-1.9)
[2021-10-19 16:00] LABS: ALB/GLOB Ratio 0.9 RATIO (0.9-2.4); AST(SGOT) 22 U/L (15-37); Alanine Aminotransfer ALT/SGPT 26 U/L (16-61); Alkaline Phosphatase 87 U/L (45-117); Anion Gap 5 (5-15); BUN 24 mg/dL (7-18); BUN/Creat Ratio 14.7 RATIO (10-20); Calcium,Total 7.8 mg/dL (8.5-10.1); Chloride 114 mmol/L (98-107); Creatinine, Serum 1.63 mg/dL (0.70-1.30); EST Glomerular Filtration Rate 43 mL/min (>60); Est Glom Filt Rate - Afr Amer 52 mL/min (>60); Estimated Creatinine Clearance 31.48 ml/min; Globulin 3.2 g/dL (2.2-4.2); Glucose 145 mg/dL (74-106); Potassium 4.3 mmol/L (3.5-5.1); Protein, Total 6.2 g/dL (6.4-8.2); Sodium Level 144 mmol/L (136-145)
[2021-10-19 16:03] LABS: Troponin-I HS 124 pg/mL (3.0-78.0)
[2021-10-19 16:12] LABS: Differential Indicated SCAN CRITERIA MET
[2021-10-19 16:14] LABS: Differential Comment SCANNED
[2021-10-19 16:59] LABS: Bacteria 0 SEEN /hpf (None Seen); Mucous, Urine 0 SEEN /hpf (<or=2+); White Blood Cells 0 SEEN /hpf (0-5)
[2021-10-19 17:12] LABS: Color, Urine Yellow (Yellow); Glucose, Dipstick Normal (Normal); Ketone-Dipstick Negative (Negative); Leukocyte Esterase-Dipstick Negative /ul (Negative); Nitrite-Dipstick Negative (Negative); Occult Blood-Urine 50 /ul (Negative); Protein-Dipstick 100 mg/dl (Negative); Urine Bilirubin Dipstick Negative (Negative); Urine Clarity Clear (Clear); Urine Urobilinogen Normal (Normal)
--- NOTE | 2021-10-19 17:15 | HP.PCM.HOS_ITS ---
HPI - General General Date of Admission: 10/19/21 HPI Narrative SHERRY MOHAMUD, is a 86 M with an extensive PMH as outlined who was admitted with a complaint of fever with headache and said he had been vomiting but had not vomited today. Daughter was by his bedside. He denied any chest pain, nausea or diarrhea. He apparently had a chronic cough which has not gotten worse. Patient had a history of NPH but did not have a shunt inserted and was being conservatively managed. He complained of some unsteadiness on his feet, and says he hasnt had therapy since the end of August.Vitals in the ED were blood pressure of 104/43 with pulse of 79, respiratory rate of 14 and oxygen sats of 97% percent on room air. His temperature was 100.8 Fahrenheit. Labs were globin of 11 with WBC of 5.8 and platelets of 346. Chemistry was only significant for creatinine of 1.63 with a baseline of 0.91. Initial high- sensitivity troponin was 124. COVID antigen test was negative. He has received his covid Moderna vaccines and his booster, but cannot remember when he had his booster. Urinalysis was pending. He has been admitted to be managed for fever of unclear origin. [facility] Medical History (Updated 10/19/21 @ 17:[address] 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 Type II diabetes mellitus Home Medications aspirin 81 mg PO QHS 04/02/16 [History Last Taken 04/01/16] atorvastatin 20 mg PO QHS 04/02/16 [History Last Taken 04/01/16] ramipril 5 mg PO DAILY 04/02/16 [History Last Taken 04/02/16] bevacizumab 25 mg/mL intravenous solution 1.25 mg INTRAVIT .COMPLEX 12/08/17 [History Last Taken Unknown] hydroxyurea 500 mg capsule 500 mg PO .COMPLEX 12/08/17 [History Last Taken Unknown] ciprofloxacin HCl 1 drp OPHTHALMIC (EYE) Q4 04/10/20 [History Last Taken Unknown] metoprolol tartrate 25 mg tablet 25 mg PO BID #180 tab 10/07/21 [Rx Last Taken Unknown] tamsulosin 0.4 mg PO DAILY 10/19/21 [History Last Taken Unknown] Allergy/AdvReac Type Severity Reaction Status Date / Time No Known Allergies Allergy Verified 10/19/21 15:23 Family History Father CAD (coronary artery disease) Myocardial infarction Mother , age 80+, cause not listed No problems noted. Surgical History History of bronchoscopy History of left heart catheterization S/P CABG x 3 Social History Smoking Status: Never smoker ROS Constitutional Constitutional: Reports anorexia, fatigue, fever(s), malaise and weakness; Denies change in weight or chills Eyes Eyes: Denies change in eye color ENT HEENT: Denies dysphagia, headache(s), nasal congestion, nasal discharge or sore throat Cardiovascular Cardiovascular: Denies chest pain, dyspnea on exertion, edema, lightheadedness, orthopnea, paroxysmal nocturnal dyspnea or rapid heart rate Respiratory/Chest Respiratory/Chest: Reports cough; Denies dyspnea, productive cough, shortness of breath at rest, shortness of breath with exertion or wheezing Gastrointestinal Gastrointestinal: Denies abdominal pain, constipation or diarrhea Genitourinary Genitourinary: Denies burning urination, dysuria or urinary frequency Musculoskeletal Musculoskeletal: Denies arthralgias Neurologic Neurologic: Denies confusion, dizziness, focal weakness or headache(s) Psychiatric Psychiatric: Denies anxiety Endocrine Endocrinology: Denies change in body appearance Hematologic/Lymphatic Hematologic/Lymphatic: Denies anemia Vital Signs Vital Signs Vital Signs: 10/19/21 15:14 10/19/21 15:19 10/19/21 15:29 Temperature 100.8 F H Temperature Source Oral Pulse Rate 88 Respiratory Rate 20 H Respiratory Effort Normal Non-Labored Respiratory Pattern Normal Blood Pressure 133/59 H Blood Pressure Mean 83 Pulse Ox 99 Oxygen Delivery Method Room Air Room Air 10/19/21 17:09 Temperature Temperature Source Pulse Rate 79 Respiratory Rate 14 Respiratory Effort Respiratory Pattern Blood Pressure 104/63 Blood Pressure Mean 76 Pulse Ox 97 Oxygen Delivery Method Room Air Weight Weight: 153 lb 10.595 oz Body Mass Index (BMI) 21.4 Physical Exam Const alert and no apparent distress Orientation / Consciousness: confused HEENT normocephalic and head/scalp atraumatic HEENT Narrative: Dry oral mucosa Eyes PERRL, EOMs intact bilaterally and conjunctivae normal Neck no lymphadenopathy and supple Resp normal respiratory effort, no retractions, no use of accessory muscles and clear to auscultation bilaterally Cardio regular rate, regular rhythm, S1 normal heart sound, S2 normal heart sound and no murmurs GI normal to inspection, nondistended, normoactive bowel sounds, soft to palpation, non-tender and non-distended Extremity normal to inspection and full ROM Extremity Narrative: 1+ bipedal pitting edema Peripheral Pulses: Yes pulses 2+ throughout Skin no rashes or lesions noted Neuro oriented x3 and CN's II-XII intact bilaterally Sensorium / Orientation: awake and alert Psych affect normal Results Lab / Micro Data Result Diagrams: 10/19/21 15:18 10/19/21 15:18 Labs: Laboratory Results - last 24 hr 10/19/21 15:18: WBC 5.8, RBC 3.18 L, Hgb 11.0 L, Hct 33.5 L, MCV 105.3 H, MCH 34.6 H, MCHC 32.8, RDW Std Deviation 58.8 H, RDW Coeff of Andrew 15.1 H, Plt Count 346, MPV 10.7, Immature Gran % (Auto) 0.900, Neut % (Auto) 93.4 H, Lymph % (Auto) 3.1 L, [place] % (Auto) 2.6, Eos % (Auto) 0.0, Baso % (Auto) 0.0, Absolute Neuts (auto) 5.4, Absolute Lymphs (auto) 0.18 L, Nucleated RBC % 0, Differential Comment SCANNED 10/19/21 15:18: PT 14.9, INR 1.2, APTT 35.3 10/19/21 15:18: Sodium 144, Potassium 4.3, Chloride 114 H, Carbon Dioxide 25.0, Anion Gap 5, BUN 24 H, Creatinine 1.63 H, Estim Creat Clear Calc 31.48, Est GFR (MDRD) Af Amer 52 L, Est GFR (MDRD) Non-Af 43 L, BUN/Creatinine Ratio 14.7, Glucose 145 H, Calcium 7.8 L, Total Bilirubin 0.80, AST 22, ALT 26, Alkaline Phosphatase 87, Troponin I High Sens 124 H*, Total Protein 6.2 L, Albumin 3.0 L, Globulin 3.2, Albumin/Globulin Ratio 0.9 10/19/21 15:18: Lactic Acid 1.9 10/19/21 16:54: Urine Color Yellow, Urine Clarity Clear, Urine pH 5.0, Ur Specific [place] 1.020, Urine Protein 100 H, Urine Glucose (UA) Normal, Urine Ketones Negative, Urine Occult Blood 50 H, Urine Nitrite Negative, Urine Bilirubin Negative, Urine Urobilinogen Normal, Ur Leukocyte Esterase Negative Micro: Microbiology 10/19/21 15:32 Mucosa - Nasopharyngeal Influenza Types A,B Direct FA (LADI) - Final 10/19/21 15:17 Nasal Secretion SARS-CoV-2 Antigen (Rapid) - Final Radiology Impression Brain CT 10/19/21 15:25 IMPRESSION: No acute intracranial abnormality. 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 Chronic involutional and ischemic changes of the brain. Electronically Signed: Simon Frank MD at 16:18 EST , Chest X-Ray 10/19/21 15:25 IMPRESSION: No acute radiographic abnormalities. Electronically Signed: Simon Frank MD at 16:20 EST , Assessment & Plan Assessment/Plan (1) Altered mental status: (2) Elevated troponin: (3) CRISTI (acute kidney injury): (4) Fever: PLAN: #Acute metabolic encephalopathy due to acute febrile illness * Etiology of fever is unclear. Chest x-ray is normal. Urinalysis is however pending. * Covid test done was negative and influenza panel was also negative. * Admit to PCU in light of mildly elevated troponins * Hydrate with IV fluids. Tylenol as needed for fever * Get blood cultures. * Hold off on antibiotics for now as patient does not have an elevated white cell count and does not have any clear evidence of fever and this may just be a viral illness * his mentation has also improved and encephalopathy has resolved. * #CRISTI: * Creatinine is 1.60 with a baseline of around 0.91. * Hydrate with IV fluids and trend creatinine. * If creatinine does not trend down, then will pursue further work-up with renal ultrasound and urine electrolytes * #Elevated troponin: * Initial high-sensitivity troponin is 124. * EKG showed no acute ST changes. * Denies any chest pain. * Will cycle high-sensitivity troponin. 2D echo. * Cardiology consult if troponins trend upwards. 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 #Hypertension: On ramipril and metoprolol #Hyperlipidemia: on statin. DVT prophylaxis: Lovenox CODE STATUS:full code * Patient and daughter counseled extensively about different types of CODE STATUS including full code, DNR CCA and DNR CCA. Patient elects to be full code. Total cidy-fl-thmc time 16 minutes. Charges/Coding Visit Charges OBSV E&M: 59988 Initial observation care L3 Procedures Hospitalists Procedures: 76126 Advncd Care Plan 30 Min
[2021-10-19 17:19] LABS: Amorphous Sediment 1+ URATE; Hyaline Cast 0-5 SEEN /lpf (0-5); Red Blood Cells-Urine 0-5 SEEN /hpf (0-5); Squamous Epithelial Cells - UA 0-5 SEEN /hpf (0-5)
--- NOTE | 2021-10-19 18:09 | ECHOD_ITS ---
Reason For Study: Elevated Troponins Procedure This was a 2D Doppler, Color Flow transthoracic echocardiogram. Exam performed portable in patient room. Left Ventricle Normal LV size. The estimated ejection fraction is 60 %. Stage 2 diastolic dysfunction. No regional wall motion abnormalities noted. Right Ventricle Normal RV size. Normal systolic function. Atria Normal left atrium. Normal right atrium. Mitral Valve Normal mitral valve. Tricuspid Valve Normal tricuspid valve. Mild (1+) tricuspid valve insufficiency. Pulmonary artery systolic pressure is 35 mmHg. Aortic Valve Trisinus/trileaflet aortic valve. Mild diffuse aortic valve thickening. Pulmonic Valve Normal pulmonic valve. Great Vessels Normal aortic root. The pulmonary artery is normal size. Normal inferior vena cava. Pericardium/Pleural No pericardial effusion. MMode/2D Measurements & Calculations LVIDd: 4.3 cm IVSd: 0.99 cm Ao root diam: 3.4 cm LVIDs: 3.4 cm LVPWd: 1.0 cm LA dimension: 3.8 cm FS: 22.3 % LAV(MOD-bp): 52.2 ml LA A4 area: 19.3 cm2 RA A4 area: 18.8 cm2 LAV(MOD-bp) Indexed: 28.5 ml/m2 LAV(MOD-sp2): 47.5 ml LAV(MOD-sp4): 53.1 ml Time Measurements MV dec time: 0.17 sec Doppler Measurements & Calculations MV E max suman: 117.4 cm/sec Lat Peak E' Suman: 9.5 cm/sec Med Peak E' Suman: 4.5 cm/sec MV A max suman: 86.1 cm/sec E/E' lat: 12.4 E/E' med: 26.4 MV E/A: 1.4 MV V2 max: 126.2 cm/sec MV P1/2t max suman: 127.1 cm/sec Ao V2 max: 129.0 cm/sec MV max P.4 mmHg MV P1/2t: 67.6 msec Ao max P.7 mmHg MV V2 mean: 50.1 cm/sec MV dec slope: 550.5 cm/sec2 MV mean P.3 mmHg MVA(P1/2t): 3.3 cm2 MV V2 VTI: 42.3 cm LV V1 max: 87.2 cm/sec PA V2 max: 97.3 cm/sec LV V1 max P.0 mmHg PI dec slope: 126.1 cm/sec2 TR max suman: 280.7 cm/sec TR max P.5 mmHg ECHO/Echo Complete Interpretation Summary Normal LV size. The estimated ejection fraction is 60 %. Stage 2 diastolic dysfunction. Pulmonary artery systolic pressure is 35 mmHg. Mild diffuse aortic valve thickening. Ordering Physician: Rose Lopez Referring Physician: Gabriel Mares M.D. Performed By: Alex Leong RCS
--- NOTE | 2021-10-19 18:10 | PCS.PANDOC ---
PANDEMIC DOCUMENTATION INITIATED: Date: 05/05/2021 Time: 190
--- NOTE | 2021-10-19 18:12 | PCS.PANDOC ---
PANDEMIC DOCUMENTATION INITIATED: Date: 05/05/2021 Time: 190
[2021-10-19 19:23] LABS: Troponin-I HS 224 pg/mL (3.0-78.0)
[2021-10-19 20:23] LABS: International Normalized Ratio 1.3; Prothrombin Time (Protime)PT. 15.7 SECONDS (11.7-14.9)
[2021-10-19] MEDS: HEPARIN/D5w 25,000 UNITS 25,000 UNITS/250 ML IV.SOLN. 10 UNITS IV (20:55)
[2021-10-19] MEDS: Heparin Injection (Vial) 5,000 UNIT/ML VIAL 4500 UNIT IV (20:56)
[2021-10-19] MEDS: Atorvastatin Calcium 20 MG Tablet PO (21:10)
[2021-10-19] MEDS: Ciprofloxacin 0.3% 2.5ml Bottle 1 DRP EACH EYE (21:10)
[2021-10-19] MEDS: Aspirin 81 MG TAB.CHEW PO (21:10)
[2021-10-19 21:35] LABS: Troponin-I HS 280 pg/mL (3.0-78.0)
[2021-10-20] VITALS (13 sets, daily range): BP systolic 113–126; BP diastolic 34–51; PULSE 53–72; RESP 16–20; TEMP 36.3–37.2; O2SAT 91–97
[2021-10-20] MEDS: Tamsulosin HCl 0.4 MG Capsule PO ×2 (00:35→13:39)
[2021-10-20] MEDS: Ciprofloxacin 0.3% 2.5ml Bottle 1 DRP EACH EYE ×3 (02:46→08:52)
[2021-10-20] MEDS: 0.9% Normal Saline 1,000 ML 100 ML IV ×2 (03:35→13:40)
[2021-10-20 03:49] LABS: Absolute Lymphocyte Count 0.33 X10^3/uL (0.83-4.51); Absolute Neutrophil Count 2.3 X10^3/uL (2.0-7.7); Basophil# 0.01 X10^3/uL; Basophil% 0.4 % (0-1); Hematocrit 27.3 % (40-54); Hemoglobin 8.8 g/dL (13.0-16.5); Lymphocyte # 0.33 X10^3/ul (0.83-4.51); Mean Corp Hgb Conc 32.2 g/dL (32-36); Mean Corpuscular Hgb 34.5 pg (27.0-32.0); Mean Corpuscular Volume 107.1 fL (80-94); Mean Platelet Vol. 10.8 fl (6.2-12.0); Monocyte# 0.13 X10^3/uL; Monocyte% 4.7 % (0-10); NRBC Flagged by Analyzer 0 % (0-5); Neutrophil # 2.25 X10^3/uL (2.7-7.7); Neutrophil % 81.8 % (47-70); POSITIVE DIFFERENTIAL YES; Platelet Count 239 K/mm3 (150-450); RBC Distribution Width CV 15.2 % (11.6-14.6); RBC Distribution Width SD 59.2 fl (35.1-43.9); Red Blood Count 2.55 M/mm3 (4.6-6.2); White Blood Count 2.8 K/mm3 (4.4-11.0)
[2021-10-20 04:00] LABS: Differential Indicated SCAN CRITERIA MET
[2021-10-20 04:01] LABS: Anion Gap 5 (5-15); BUN 23 mg/dL (7-18); BUN/Creat Ratio 17.8 RATIO (10-20); Calcium,Total 7.1 mg/dL (8.5-10.1); Chloride 117 mmol/L (98-107); Creatinine, Serum 1.29 mg/dL (0.70-1.30); EST Glomerular Filtration Rate 56 mL/min (>60); Est Glom Filt Rate - Afr Amer 68 mL/min (>60); Estimated Creatinine Clearance 37.03 ml/min; Glucose 98 mg/dL (74-106); Potassium 3.6 mmol/L (3.5-5.1); Sodium Level 145 mmol/L (136-145)
[2021-10-20 04:16] LABS: Anisocytosis 1+
[2021-10-20 04:21] LABS: Partial Thromboplast Time 211.5 Seconds (24.1-36.2)
--- NOTE | 2021-10-20 07:31 | CON.PCM.CA_ITS ---
Assessment & Plan Assessment/Plan (1) Elevated troponin: PLAN: He does have a history of coronary artery disease and presents with a noncardiac issue with mildly elevated troponins. The etiology of the above is not entirely clear but may likely be secondary to demand ischemia. I would recommend we obtain an echocardiogram to assess his ventricular function. With his lack of EKG changes and no evidence of chest discomfort I would suggest conservative management at this particular time with no approach to invasive therapy. We will discuss this further with the family (2) Atherosclerotic heart disease of [place] coronary artery without angina pectoris: PLAN: He does have a history of atherosclerotic cardiovascular disease status post coronary bypass surgery almost 10 years ago. We will continue with current guideline directed medical therapy (3) Ischemic cardiomyopathy: PLAN: He does have a mild ischemic cardiomyopathy. The plan to be to continue the current medical therapy without making any major changes. (4) HTN (hypertension): QUALIFIERS: Hypertension type: essential hypertension Qualified Code(s): I10 - Essential (primary) hypertension PLAN: He does have a history of hypertension. The plan to be to continue with the current dose of his beta-bismark. (5) HLD (hyperlipidemia): QUALIFIERS: Hyperlipidemia type: pure hypercholesterolemia Qualified Code(s): E78.00 - Pure hypercholesterolemia, unspecified; E78.0 - Pure hypercholesterolemia PLAN: He does have a history of hyperlipidemia. We will continue with aggressive medical therapy. HPI Consult Data Date of Consult: 10/20/21 HPI Narrative HPI Narrative: SHERRY MOHAMUD, is a 86 M who presents to the emergency room with malaise fever and a cough which has been going on for a few days. He was evaluated in the emergency room and noted to be likely infected though the source of the infection was not entirely clear. An EKG was done which was unremarkable and cardiac enzymes were obtained which were abnormal and hence cardiology was consulted. Patient denies any chest pain or shortness of breath or paroxysmal nocturnal dyspnea. He is a gentleman with a history of coronary artery disease status post coronary bypass surgery in 2010 with a left internal mammary artery to the left anterior descending artery saphenous vein graft to p osterior descending artery and saphenous vein graft to obtuse marginal branch. You do remember that he is also a diabetic and is on metformin. He has had no dizziness or diaphoresis no near syncope or syncope. He has not been in the office in over 2 years but apparently has been fairly stable though he does have some incipient dementia according to the family. He was started on heparin and this morning his hemoglobin is lower, his EKG did not demonstrate any acute changes [facility] Medical History (Updated 10/20/21 @ 15:[address] 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 HLD (hyperlipidemia) HTN (hypertension) Hydrocephalus Ischemic cardiomyopathy Lung mass Mass of lower lobe of left lung Normal pressure hydrocephalus Type II diabetes mellitus Home Medications aspirin 81 mg PO QHS 04/02/16 [History Last Taken 10/18/21] atorvastatin 20 mg PO QHS 04/02/16 [History Last Taken 10/18/21] ramipril 10 mg PO DAILY 04/02/16 [History Last Taken 10/19/21] bevacizumab 25 mg/mL intravenous solution 1.25 mg INTRAVIT .COMPLEX 12/08/17 [History Last Taken 10/09/21] hydroxyurea 500 mg capsule 500 mg PO MOTUWETHFR 12/08/17 [History Last Taken 10/17/21] metoprolol tartrate 25 mg tablet 25 mg PO BID #180 tab 10/07/21 [Rx Last Taken 10/19/21] tamsulosin 0.4 mg PO QHS 10/19/21 [History Last Taken 10/18/21] Allergy/AdvReac Type Severity Reaction Status Date / Time No Known Allergies Allergy Verified 10/19/21 15:23 Family History Father CAD (coronary artery disease) Myocardial infarction Mother , age 80+, cause not listed No problems noted. Surgical History History of bronchoscopy History of left heart catheterization S/P CABG x 3 Social History Smoking Status: Never smoker ROS Constitutional Constitutional: Denies fever(s) or weight loss Eyes Eyes: Reports systems reviewed and no addt'l complaints, except as documented ENT HEENT: Reports systems reviewed and no addt'l complaints, except as documented Cardiovascular Cardiovascular: Denies chest pain at rest, chest pain with activity, dyspnea at rest, dyspnea on exertion, edema, palpitations or paroxysmal nocturnal dyspnea Respiratory/Chest Respiratory/Chest: Reports cough and productive cough; Denies dyspnea on exer tion, shortness of breath at rest or shortness of breath with exertion Gastrointestinal Gastrointestinal: Denies change in bowel habits, nausea, vomiting or weight changes Genitourinary Genitourinary: Denies difficulty urinating Musculoskeletal Musculoskeletal: Denies joint stiffness or muscle weakness Integumentary Integumentary: Denies lesions Neurologic Neurologic: Denies dizziness or syncope Psychiatric Psychiatric: Denies anxiety Endocrine Endocrinology: Denies excessive sweating or fatigue Hematologic/Lymphatic Hematologic/Lymphatic: Denies anemia Allergic/Immunologic Allergic/Immunologic: Denies seasonal rhinorrhea Physical Exam Const alert, oriented x3 and no apparent distress General Appearance: cooperative HEENT hearing grossly normal bilaterally Head and Scalp: atraumatic Eyes EOMs intact bilaterally Neck General: normal visual inspection Chest inspection of chest normal and palpation of chest normal Resp normal respiratory effort Auscultation: clear to auscultation bilaterally Cardio regular rate, regular rhythm, S1 normal heart sound and S2 normal heart sound Jugular Venous Distention: JVD GI normal to inspection, nondistended, normoactive bowel sounds Extremity normal capillary refill and no pedal edema Peripheral Pulses: Yes pulses 2+ throughout and femoral pulses present Skin no rashes or lesions noted Neuro oriented x3 and CN's II-XII intact bilaterally Psych Appearance: grossly normal and appropriate Risk Stratification Risk Stratification Applicable: No >/= 3 CAD Risk Factors (HTN, HLD, DM, family hx of CAD, or current smoker): Yes Aspirin Use in the Past 7 Days: Yes Severe Angina (>/= episodes in 24 hours): No EKG ST Changes >/= 0.5mm: No Positive Cardiac Marker: Yes Objective Data Vital Signs: Vital Signs Temp Pulse Resp BP Pulse Ox 97.6 F L 72 16 113/44 L 97 10/20/21 02:40 10/20/21 02:57 10/20/21 02:40 10/20/21 02:40 10/20/21 02:40 Oxygen Delivery Method Room Air Weight: 143 lb 1.28 oz Body Mass Index (BMI) 19.9 Intake & Output: Intake and Output for Last 24 Hours 10/18/21 10/19/21 10/20/21 23:59 23:59 23:59 Intake Total 546.67 / 546.67 958.33 / 958.33 Balance 546.67 / 546.67 958.33 / 958.33 Lab / Micro Data Result Diagrams: 10/20/21 03:00 10/20/21 03:00 Labs: Laboratory Results - last 24 hr 10/19/21 15:18: WBC 5.8, RBC 3.18 L, Hgb 11.0 L, Hct 33.5 L, MCV 105.3 H, MCH 34.6 H, MCHC 32.8, RDW Std Deviation 58.8 H, RDW Coeff of Andrew 15.1 H, Plt Count 346, MPV 10.7, Immature Gran % (Auto) 0.900, Neut % (Auto) 93.4 H, Lymph % (Auto) 3.1 L, [place] % (Auto) 2.6, Eos % (Auto) 0.0, Baso % (Auto) 0.0, Absolute Neuts (auto) 5.4, Absolute Lymphs (auto) 0.18 L, Nucleated RBC % 0, Differential Comment SCANNED 10/19/21 15:18: PT 14.9, INR 1.2, APTT 35.3 10/19/21 15:18: Sodium 144, Potassium 4.3, Chloride 114 H, Carbon Dioxide 25.0, Anion Gap 5, BUN 24 H, Creatinine 1.63 H, Estim Creat Clear Calc 31.48, Est GFR (MDRD) Af Amer 52 L, Est GFR (MDRD) Non-Af 43 L, BUN/Creatinine Ratio 14.7, Glucose 145 H, Calcium 7.8 L, Total Bilirubin 0.80, AST 22, ALT 26, Alkaline Phosphatase 87, Troponin I High Sens 124 H*, Total Protein 6.2 L, Albumin 3.0 L, Globulin 3.2, Albumin/Globulin Ratio 0.9 10/19/21 15:18: Lactic Acid 1.9 10/19/21 16:54: Urine Color Yellow, Urine Clarity Clear, Urine pH 5.0, Ur Sp ecific [place] 1.020, Urine Protein 100 H, Urine Glucose (UA) Normal, Urine K etones Negative, Urine Occult Blood 50 H, Urine Nitrite Negative, Urine Bilir ubin Negative, Urine Urobilinogen Normal, Ur Leukocyte Esterase Negative, Urine RBC 0-5 SEEN, Urine WBC 0 SEEN, Ur Squamous Epith Cells 0-5 SEEN, Amorphous Sediment 1+ URATE, Urine Bacteria 0 SEEN, Hyaline Casts 0-5 SEEN, Urine Mucus 0 SEEN 10/19/21 18:55: Troponin I High Sens 224 H* 10/19/21 20:00: PT 15.7 H, INR 1.3, APTT 39.0 H 10/19/21 21:00: Troponin I High Sens 280 H* 10/20/21 03:00: WBC 2.8 L, RBC 2.55 L, Hgb 8.8 L, Hct 27.3 L, MCV 107.1 H, MCH 34.5 H, MCHC 32.2, RDW Std Deviation 59.2 H, RDW Coeff of Andrew 15.2 H, Plt Count 239, MPV 10.8, Immature Gran % (Auto) 1.100 H, Neut % (Auto) 81.8 H, Lymph % (Auto) 12.0 L, [place] % (Auto) 4.7, Eos % (Auto) 0.0, Baso % (Auto) 0.4, Absolute Neuts (auto) 2.3, Absolute Lymphs (auto) 0.33 L, Nucleated RBC % 0, Diff Path Review May foll, Anisocytosis 1+ 10/20/21 03:00: Sodium 145, Potassium 3.6, Chloride 117 H, Carbon Dioxide 23.0, Anion Gap 5, BUN 23 H, Creatinine 1.29, Estim Creat Clear Calc 37.03, Est GFR (MDRD) Af Amer 68, Est GFR (MDRD) Non-Af 56 L, BUN/Creatinine Ratio 17.8, Glucose 98, Calcium 7.1 L 10/20/21 03:00: APTT 211.5 H* Micro: Microbiology 10/19/21 15:32 Mucosa - Nasopharyngeal Influenza Types A,B Direct FA (LADI) - Final 10/19/21 15:17 Nasal Secretion SARS-CoV-2 Antigen (Rapid) - Final Cardiology Labs/Tests 10/19/21 15:18: WBC 5.8, RBC 3.18 L, Hgb 11.0 L, Hct 33.5 L, MCV 105.3 H, MCH 34.6 H, MCHC 32.8, Plt Count 346, MPV 10.7, Immature Gran % (Auto) 0.900, Neut % (Auto) 93.4 H, Lymph % (Auto) 3.1 L, [place] % (Auto) 2.6, Eos % (Auto) 0.0, Baso % (Auto) 0.0, Absolute Neuts (auto) 5.4, Nucleated RBC % 0 10/19/21 15:18: PT 14.9, INR 1.2, APTT 35.3 10/19/21 15:18: Sodium 144, Potassium 4.3, Chloride 114 H, Carbon Dioxide 25.0, Anion Gap 5, BUN 24 H, Creatinine 1.63 H, Est GFR (MDRD) Af Amer 52 L, Est GFR (MDRD) Non-Af 43 L, BUN/Creatinine Ratio 14.7, Glucose 145 H, Calcium 7.8 L, Total Bilirubin 0.80 10/19/21 15:18: Lactic Acid 1.9 10/19/21 16:54: Urine Color Yellow, Urine Clarity Clear, Urine pH 5.0, Ur Spe cific [place] 1.020, Urine Protein 100 H, Urine Glucose (UA) Normal, Urine Ketones Negative, Urine Occult Blood 50 H, Urine Nitrite Negative, Urine Bi lirubin Negative, Urine Urobilinogen Normal, Ur Leukocyte Esterase Negative, Urine RBC 0-5 SEEN, Urine WBC 0 SEEN 10/19/21 20:00: PT 15.7 H, INR 1.3, APTT 39.0 H 10/20/21 03:00: WBC 2.8 L, RBC 2.55 L, Hgb 8.8 L, Hct 27.3 L, MCV 107.1 H, MCH 34.5 H, MCHC 32.2, Plt Count 239, MPV 10.8, Immature Gran % (Auto) 1.100 H, Neut % (Auto) 81.8 H, Lymph % (Auto) 12.0 L, [place] % (Auto) 4.7, Eos % (Auto) 0.0, Baso % (Auto) 0.4, Absolute Neuts (auto) 2.3, Nucleated RBC % 0 10/20/21 03:00: Sodium 145, Potassium 3.6, Chloride 117 H, Carbon Dioxide 23.0, Anion Gap 5, BUN 23 H, Creatinine 1.29, Est GFR (MDRD) Af Amer 68, Est GFR (MDRD) Non-Af 56 L, BUN/Creatinine Ratio 17.8, Glucose 98, Calcium 7.1 L 10/20/21 03:00: APTT 211.5 H* Rhythm: EKG: Normal sinus rhythm with no acute changes ECHO: Stress Test: Cardiac Cath: PCI: CT Surgery: Holter monitor: EPS: PPM: CXR: Chest CT Scan: Radiography Diagnostic Testing: Radiology Impression Brain CT 10/19/21 15:25 IMPRESSION: No acute intracranial abnormality. 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 Chronic involutional and ischemic changes of the brain. Electronically Signed: Simon Frank MD at 16:18 EST , Chest X-Ray 10/19/21 15:25 IMPRESSION: No acute radiographic abnormalities. Electronically Signed: Simon Frank MD at 16:20 EST ,
[2021-10-20] MEDS: Ramipril 5 MG Capsule PO (08:52)
[2021-10-20] MEDS: Metoprolol Tartrate 25 MG Tablet PO ×2 (08:52→22:01)
[2021-10-20 12:48] LABS: Pathologist Review Reviewed
[2021-10-20] MEDS: Hydroxyurea 500 MG Capsule PO (13:39)
--- NOTE | 2021-10-20 15:25 | PN.HOSP_ITS ---
Subjective Subjective Patient indicates he feels about the same. He has difficulty expressing exactly what symptoms he was having prior to presentation although he does indicate he had been constipated but has had a bowel movement since admission and he was having urinary difficulties at home with retention and indicates that he still having the same symptoms however his renal function has improved significantly. He has had no further fevers. He does report some disequilibrium however that is been going on for 6 to 8 months and he has followed up with a specialist who offered some surgery but he declined. Objective Data Objective Data Vital Signs: Vital Signs Temp Pulse Resp BP Pulse Ox 98.3 F 63 16 117/47 L 96 10/20/21 13:48 10/20/21 13:48 10/20/21 13:48 10/20/21 13:48 10/20/21 13:48 Oxygen Delivery Method Room Air Weight: 64.9 kg Body Mass Index (BMI) 19.9 Intake & Output: Intake and Output for Last 24 Hours 10/18/21 10/19/21 10/20/21 23:59 23:59 23:59 Intake Total 546.67 / 546.67 Balance 546.67 / 546.67 Lab / Micro Data Result Diagrams: 10/20/21 03:00 10/20/21 03:00 Labs: Laboratory Results - last 24 hr 10/19/21 15:18: WBC 5.8, RBC 3.18 L, Hgb 11.0 L, Hct 33.5 L, MCV 105.3 H, MCH 34.6 H, MCHC 32.8, RDW Std Deviation 58.8 H, RDW Coeff of Andrew 15.1 H, Plt Count 346, MPV 10.7, Immature Gran % (Auto) 0.900, Neut % (Auto) 93.4 H, Lymph % (Auto) 3.1 L, [place] % (Auto) 2.6, Eos % (Auto) 0.0, Baso % (Auto) 0.0, Absolute Neuts (auto) 5.4, Absolute Lymphs (auto) 0.18 L, Nucleated RBC % 0, Differential Comment SCANNED 10/19/21 15:18: PT 14.9, INR 1.2, APTT 35.3 10/19/21 15:18: Sodium 144, Potassium 4.3, Chloride 114 H, Carbon Dioxide 25.0, Anion Gap 5, BUN 24 H, Creatinine 1.63 H, Estim Creat Clear Calc 31.48, Est GFR (MDRD) Af Amer 52 L, Est GFR (MDRD) Non-Af 43 L, BUN/Creatinine Ratio 14.7, Glucose 145 H, Calcium 7.8 L, Total Bilirubin 0.80, AST 22, ALT 26, Alkaline Phosphatase 87, Troponin I High Sens 124 H*, Total Protein 6.2 L, Albumin 3.0 L, Globulin 3.2, Albumin/Globulin Ratio 0.9 10/19/21 15:18: Lactic Acid 1.9 10/19/21 16:54: Urine Color Yellow, Urine Clarity Clear, Urine pH 5.0, Ur Specific [place] 1.020, Urine Protein 100 H, Urine Glucose (UA) Normal, Urine Ketones Negative, Urine Occult Blood 50 H, Urine Nitrite Negative, Urine Bilirubin Negative, Urine Urobilinogen Normal, Ur Leukocyte Esterase Negative, Urine RBC 0-5 SEEN, Urine WBC 0 SEEN, Ur Squamous Epith Cells 0-5 SEEN, Amorphous Sediment 1+ URATE, Urine Bacteria 0 SEEN, Hyaline Casts 0-5 SEEN, Urine Mucus 0 SEEN 10/19/21 18:55: Troponin I High Sens 224 H* 10/19/21 20:00: PT 15.7 H, INR 1.3, APTT 39.0 H 10/19/21 21:00: Troponin I High Sens 280 H* 10/20/21 03:00: WBC 2.8 L, RBC 2.55 L, Hgb 8.8 L, Hct 27.3 L, MCV 107.1 H, MCH 34.5 H, MCHC 32.2, RDW Std Deviation 59.2 H, RDW Coeff of Andrew 15.2 H, Plt Count 239, MPV 10.8, Immature Gran % (Auto) 1.100 H, Neut % (Auto) 81.8 H, Lymph % (Auto) 12.0 L, [place] % (Auto) 4.7, Eos % (Auto) 0.0, Baso % (Auto) 0.4, Absolute Neuts (auto) 2.3, Absolute Lymphs (auto) 0.33 L, Nucleated RBC % 0, Diff Path Review Reviewed, Anisocytosis 1+ 10/20/21 03:00: Sodium 145, Potassium 3.6, Chloride 117 H, Carbon Dioxide 23.0, Anion Gap 5, BUN 23 H, Creatinine 1.29, Estim Creat Clear Calc 37.03, Est GFR (MDRD) Af Amer 68, Est GFR (MDRD) Non-Af 56 L, BUN/Creatinine Ratio 17.8, Glucose 98, Calcium 7.1 L 10/20/21 03:00: APTT 211.5 H* 10/20/21 08:45: COVID-19 (ABIMAEL) Not Detected Micro: Microbiology 10/19/21 16:54 Urine, Clean Catch Urine Culture - Preliminary Culture exhibits no growth. 10/19/21 15:32 Mucosa - Nasopharyngeal Influenza Types A,B Direct FA (LADI) - Final 10/19/21 15:17 Nasal Secretion SARS-CoV-2 Antigen (Rapid) - Final Radiography Diagnostic Testing: Radiology Impression Brain CT 10/19/21 15:25 IMPRESSION: No acute intracranial abnormality. 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 Chronic involutional and ischemic changes of the brain. Electronically Signed: Simon Frank MD at 16:18 EST , Chest X-Ray 10/19/21 15:25 IMPRESSION: No acute radiographic abnormalities. Electronically Signed: Simon Frank MD at 16:20 EST , Physical Exam Const alert, oriented x3, no apparent distress, average body habitus, healthy appearing and well nourished Constitutional Narrative: Elderly white male sitting up in a chair at the bedside, watching television, appears well and nontoxic Exam Limitations: no limitations HEENT head/scalp atraumatic and moist oral mucous membranes HEENT Narrative: Dentition is fair for age, Mallampati is 2, no thrush Head and Scalp: normocephalic Resp normal respiratory effort, no retractions, no use of accessory muscles and clear to auscultation bilaterally Auscultation: Negative for crackles, rales, rhonchi or wheezes Cardio regular rate, regular rhythm, S1 normal heart sound, S2 normal heart sound, no murmurs, no rub, no gallops, no clicks and no JVD GI normal to inspection, nondistended, normoactive bowel sounds, soft to palpation, non-tender and non-distended Extremity no clubbing, cyanosis or edema Peripheral Pulses: Yes pulses 2+ throughout Neuro oriented x3, CN's II-XII intact bilaterally, moves all extremities and no focal motor deficits Sensorium / Orientation: awake and alert Speech: speech normal Assessment & Plan Assessment/Plan (1) Fever: (2) CRISTI (acute kidney injury): (3) Elevated troponin: (4) Metabolic encephalopathy: PLAN: Fever -Covid test negative--> rapid and PCR -Cultures are pending -Patient is clinically stable without any empiric antibiotics -Suspect this may be related to viral illness that is improving especially givi ng lymphopenia -No fever since 1514 on 130 with T-max of 100.8 -Continue to monitor clinically -It appears that the patient may be immunosuppressed at baseline Troponin elevation -Was evaluated by cardiology today -No plans for interventional management at this time -Continue home medications -Echocardiogram is pending CRISTI -Resolved -Serum creatinine is back to 1.29 -Baseline creatinine is -We will discontinue IV fluids and monitor CAD status post CABG in 2010 -Continue home medications 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
--- NOTE | 2021-10-20 16:20 | CASEMGMT ---
This RN CM to room to speak with pt/daughter regarding d/c plan and complete CHRISTENSEN form. Pt is sleeping at this time and per daughter, has been that way most of the day but is also confused. CHRISTENSEN form explained to daughter, voices understanding and signs CHRISTENSEN form at this time. Original to chart and copy to daughter. Per daughter, pt does normally have some confusion at home but has not been this lethargic. Per daughter, if pt continues like this, then they will not be able to care for him at home. Daughter was provided a list of SNF providers including quality and resource use data and consistent with the patient?s preferred geographic region, medical needs, and insurance network and then daughter states they would prefer that pt go to [facility], if necessary at discharge. Tami SW aware and pt placed on TCU list. CM to follow. Ladi LEMUS CM
[2021-10-20] MEDS: Atorvastatin Calcium 20 MG Tablet PO (22:01)
[2021-10-20] MEDS: Aspirin 81 MG TAB.CHEW PO (22:01)
[2021-10-20] MEDS: Menthol/Lanolin/Calamine/Znox 113 GM Tube 1 APPLIC TOPICAL (22:02)
[2021-10-20] MEDS: Glucerna Shake 120 ML LIQUID PO (22:02)
[2021-10-21] VITALS (8 sets, daily range): BP systolic 113–123; BP diastolic 35–46; PULSE 54–65; RESP 16; TEMP 36.4–36.8; O2SAT 94–98
[2021-10-21] MEDS: Menthol/Lanolin/Calamine/Znox 113 GM Tube 1 APPLIC TOPICAL ×2 (03:26→13:58)
[2021-10-21 04:05] LABS: Absolute Lymphocyte Count 0.56 X10^3/uL (0.83-4.51); Absolute Neutrophil Count 1.6 X10^3/uL (2.0-7.7); Eosinophil# 0.01 X10^3/uL; Eosinophils% 0.4 % (0-5); Hematocrit 25.3 % (40-54); Hemoglobin 8.4 g/dL (13.0-16.5); Lymphocyte # 0.56 X10^3/ul (0.83-4.51); Lymphocyte % 23.2 % (19-41); Mean Corp Hgb Conc 33.2 g/dL (32-36); Mean Corpuscular Hgb 34.7 pg (27.0-32.0); Mean Corpuscular Volume 104.5 fL (80-94); Mean Platelet Vol. 10.3 fl (6.2-12.0); Monocyte# 0.19 X10^3/uL; Monocyte% 7.9 % (0-10); NRBC Flagged by Analyzer 0 % (0-5); Neutrophil # 1.62 X10^3/uL (2.7-7.7); Neutrophil % 67.3 % (47-70); POSITIVE DIFFERENTIAL YES; POSITIVE MORPHOLOGY YES; Platelet Count 219 K/mm3 (150-450); RBC Distribution Width CV 15.5 % (11.6-14.6); RBC Distribution Width SD 58.5 fl (35.1-43.9); Red Blood Count 2.42 M/mm3 (4.6-6.2); White Blood Count 2.4 K/mm3 (4.4-11.0)
[2021-10-21 04:12] LABS: Differential Indicated SCAN CRITERIA MET
[2021-10-21 04:30] LABS: Anion Gap 5 (5-15); BUN 24 mg/dL (7-18); Calcium,Total 7.4 mg/dL (8.5-10.1); Chloride 117 mmol/L (98-107); Creatinine, Serum 1.33 mg/dL (0.70-1.30); EST Glomerular Filtration Rate 54 mL/min (>60); Est Glom Filt Rate - Afr Amer 65 mL/min (>60); Estimated Creatinine Clearance 35.92 ml/min; Glucose 88 mg/dL (74-106); Potassium 3.4 mmol/L (3.5-5.1); Sodium Level 143 mmol/L (136-145)
[2021-10-21 04:46] LABS: Anisocytosis 1+; Differential Comment SCANNED
--- NOTE | 2021-10-21 07:22 | PN.CARD_ITS ---
Subjective Subjective Patient seen and evaluated. Appears to be stable at this time. No cardiac complaints. Objective Data Vital Signs: Vital Signs Temp Pulse Resp BP Pulse Ox 97.5 F L 63 16 123/46 H 97 10/21/21 03:25 10/21/21 03:25 10/21/21 03:25 10/21/21 03:25 10/21/21 03:25 Oxygen Delivery Method Room Air Weight: 143 lb 1.28 oz Body Mass Index (BMI) 19.9 Intake & Output: Intake and Output for Last 24 Hours 10/19/21 10/20/21 10/21/21 23:59 23:59 23:59 Intake Total 546.67 / 546.67 2337.58 / 2337.58 100 / 100 Balance 546.67 / 546.67 2337.58 / 2337.58 100 / 100 Lab / Micro Data Result Diagrams: 10/21/21 03:43 10/21/21 03:43 Labs: Laboratory Results - last 24 hr 10/20/21 03:00: Diff Path Review Reviewed 10/20/21 08:45: COVID-19 (ABIMAEL) Not Detected 10/21/21 03:43: Sodium 143, Potassium 3.4 L, Chloride 117 H, Carbon Dioxide 21.0, Anion Gap 5, BUN 24 H, Creatinine 1.33 H, Estim Creat Clear Calc 35.92, Est GFR (MDRD) Af Amer 65, Est GFR (MDRD) Non-Af 54 L, BUN/Creatinine Ratio 18.0, Glucose 88, Calcium 7.4 L 10/21/21 03:43: WBC 2.4 L, RBC 2.42 L, Hgb 8.4 L, Hct 25.3 L, MCV 104.5 H, MCH 34.7 H, MCHC 33.2, RDW Std Deviation 58.5 H, RDW Coeff of Andrew 15.5 H, Plt Count 219, MPV 10.3, Immature Gran % (Auto) 1.200 H, Neut % (Auto) 67.3, Lymph % (Auto) 23.2, [place] % (Auto) 7.9, Eos % (Auto) 0.4, Baso % (Auto) 0.0, Absolute Neuts (auto) 1.6 L, Absolute Lymphs (auto) 0.56 L, Nucleated RBC % 0, Differential Comment SCANNED, Diff Path Review May foll, Anisocytosis 1+ Micro: Microbiology 10/19/21 16:54 Urine, Clean Catch Urine Culture - Preliminary Culture exhibits no growth. Cardiology Labs/Tests 10/21/21 03:43: Sodium 143, Potassium 3.4 L, Chloride 117 H, Carbon Dioxide 21.0, Anion Gap 5, BUN 24 H, Creatinine 1.33 H, Est GFR (MDRD) Af Amer 65, Est GFR (MDRD) Non-Af 54 L, BUN/Creatinine Ratio 18.0, Glucose 88, Calcium 7.4 L 10/21/21 03:43: WBC 2.4 L, RBC 2.42 L, Hgb 8.4 L, Hct 25.3 L, MCV 104.5 H, MCH 34.7 H, MCHC 33.2, Plt Count 219, MPV 10.3, Immature Gran % (Auto) 1.200 H, Neut % (Auto) 67.3, Lymph % (Auto) 23.2, [place] % (Auto) 7.9, Eos % (Auto) 0.4, Baso % (Auto) 0.0, Absolute Neuts (auto) 1.6 L, Nucleated RBC % 0 Rhythm: EKG: ECHO: Stress Test: Cardiac Cath: PCI: CT Surgery: Holter monitor: EPS: PPM: CXR: Chest CT Scan: Radiography Diagnostic Testing: Radiology Impression Echocardiogram 10/19/21 18:09 Interpretation Summary Normal LV size. The estimated ejection fraction is 60 %. Stage 2 diastolic dysfunction. Pulmonary artery systolic pressure is 35 mmHg. Mild diffuse aortic valve thickening. Ordering Physician: Rose Lopez Referring Physician: Gabriel Mares M.D. Performed By: Alex Leong RCS Assessment & Plan Assessment/Plan (1) Elevated troponin: PLAN: He does have a history of coronary artery disease and presents with a noncardiac issue with mildly elevated troponins. The etiology of the above is not entirely clear but may likely be secondary to demand ischemia. His echocardiogram demonstrated preserved left ventricular systolic function. I at this point do not think that we should pursue any further invasive cardiac management other than what we have instituted previously. We may consider a stress test in a.m. (2) Atherosclerotic heart disease of [place] coronary artery without angina pectoris: PLAN: He does have a history of atherosclerotic cardiovascular disease status post coronary bypass surgery almost 10 years ago. We will continue with current guideline directed medical therapy (3) Ischemic cardiomyopathy: PLAN: He does have a mild ischemic cardiomyopathy which has resolved. The plan to be to continue the current medical therapy without making any major changes. (4) HTN (hypertension): QUALIFIERS: Hypertension type: essential hypertension Qualified Code(s): I10 - Essential (primary) hypertension PLAN: He does have a history of hypertension. The plan to be to continue with the current dose of his beta-bismark. (5) HLD (hyperlipidemia): QUALIFIERS: Hyperlipidemia type: pure hypercholesterolemia Qualified Code(s): E78.00 - Pure hypercholesterolemia, unspecified; E78.0 - Pure hypercholesterolemia PLAN: He does have a history of hyperlipidemia. We will continue with aggressive medical therapy.
[2021-10-21] MEDS: Potassium Chloride Oral Tablet 20 MEQ 40 MEQ PO (08:19)
[2021-10-21] MEDS: Tamsulosin HCl 0.4 MG Capsule 0.8 MG PO (08:23)
[2021-10-21] MEDS: Ramipril 5 MG Capsule PO (08:24)
[2021-10-21] MEDS: Hydroxyurea 500 MG Capsule PO (08:24)
[2021-10-21] MEDS: Glucerna Shake 120 ML LIQUID PO ×2 (08:26→13:58)
--- NOTE | 2021-10-21 11:36 | CASEMGMT ---
SW spoke with patient's daughter, Evelyn. SW asked if they were still wanting patient to go to TCU. Evelyn was not sure. Patient is more alert today. Evelyn will be her a while, hopefully she will be present when therapy sees patient. Kimberlee Simons [employer]
[2021-10-21] MEDS: Metoprolol Tartrate 25 MG Tablet PO (12:43)
--- NOTE | 2021-10-21 13:07 | PCM.DC.SUM ---
Providers Date of Admission: 10/19/21 Date of Discharge: 10/21/21 Primary Care Physician: Dr. Gabriel Mares MD Consultations 10/19/21 19:42 Consult: Cardiology Routine Consulting Provider: Angeline Judd Reason for Consult: elevated troponins EMERGENT Consult: No MD Notified: Yes Date Notified: 10/20/21 Time Notified: 06:39 Method of Notification: Text Reason For Visit: FEVER, ELEVATED TROPONIN, CRISTI Diagnosis Discharge Diagnosis (1) Elevated troponin: Status: Acute Code(s): R77.8 - Other specified abnormalities of plasma proteins (2) Atherosclerotic heart disease of [place] coronary artery without angina pectoris: Status: Chronic Code(s): I25.10 - Atherosclerotic heart disease of [place] coronary artery without angina pectoris (3) Ischemic cardiomyopathy: Status: Chronic Code(s): I25.5 - Ischemic cardiomyopathy (4) HTN (hypertension): Status: Chronic Code(s): I10 - Essential (primary) hypertension Qualifiers: Hypertension type: essential hypertension Qualified Code(s): I10 - Essential (primary) hypertension (5) HLD (hyperlipidemia): Status: Chronic Code(s): E78.5 - Hyperlipidemia, unspecified Qualifiers: Hyperlipidemia type: pure hypercholesterolemia Qualified Code(s): E78.00 - Pure hypercholesterolemia, unspecified; E78.0 - Pure hypercholesterolemia Medications at Discharge Home Medications aspirin 81 mg PO QHS 04/02/16 atorvastatin 20 mg PO QHS 04/02/16 ramipril 10 mg PO DAILY 04/02/16 bevacizumab 25 mg/mL intravenous solution 1.25 mg INTRAVIT .COMPLEX 12/08/17 hydroxyurea 500 mg capsule 500 mg PO MOTUWETHFR 12/08/17 metoprolol tartrate 25 mg tablet 25 mg PO BID #180 tab 10/07/21 tamsulosin 0.4 mg PO QHS 10/19/21 Hospital Course Operations None Procedures 2-D Echocardiogram Summary of Care Provided Minutes Spent on Discharge: 38 Hospital Course: Mr. Winn is a 86-year-old white male who was admitted to [facility] through the emergency department on 10/19/2021 after presenting for fever with a headache. The patient indicated also on presentation that he had vomited previously but not on the day of admission. The daughter was by his bedside on admission and indicated that her father had a chronic cough which Has been stable and no worse. The patient complained of some unsteadiness on his feet and that this has been an ongoing problem. He has a history of normal pressure hydrocephalus and had been referred to neurosurgery for shunt placement but elected to manage this conservatively with ongoing therapy. He ambulates with a walker at baseline. In the emergency department he had a temperature of 100.8, his blood pressure was stable as was his pulse. His respiratory rate was 14 and his sats were 97% on room air.His CBC was overall unremarkable. His initial high-sensitivity troponin was found to be 124.Rapid Covid test was performed and found to be negative however given his symptoms a PCR was also obtained and found to be negative. A UA was performed and not consistent with any signs of infection. Blood cultures were drawn in the emergency department and the patient was admitted to the PCU given his mildly elevated troponin to rule out any signs of acute ischemia with wall motion abnormalities.His EF was found to be 60% with stage II diastolic dysfunction and pulmonary artery systolic pressure of 35 mmHg he also was found to have diffuse aortic valve thickening.He was followed by physical therapy and Occupational Therapy during his hospitalization and was reevaluated on the day of discharge and they felt he was stable for discharge home. Given his clinical improvement he was discharged home in stable condition on 10/21/2021. No medication changes were made. He is to follow-up with cardiology for consideration for outpatient stress testing and I recommended follow-up with his primary care physician in approximately 1 to 2 weeks for reevaluation. 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 Hypertension Hyperlipidemia Normal pressure hydrocephalus BPH Physical Exam Const alert, oriented x3, no apparent distress, average body habitus, healthy appearing and well nourished Constitutional Narrative: Elderly white male sitting up in Bed, watching television, appears well and nontoxic, Mild intermittent confusion General Appearance: cooperative, comfortable, well kempt and well developed Orientation / Consciousness: awake and confused Exam Limitations: no limitations HEENT normocephalic, head/scalp atraumatic and moist oral mucous membranes HEENT Narrative: Mildly hard of hearing, Dentition is fair for age, Mallampati is 2 Eyes PERRL and EOMs intact bilaterally Eyes Narrative: Mildly pale conjunctiva bilaterally, no scleral icterus Neck no lymphadenopathy, supple and no JVD Neck Narrative: Trachea midline, no thyroid enlargement Resp normal respiratory effort, no retractions, no use of accessory muscles and clear to auscultation bilaterally Auscultation: Negative for crackles, rales, rhonchi or wheezes Cardio regular rate, regular rhythm, S1 normal heart sound, S2 normal heart sound, no murmurs, no rub, no gallops, no clicks and no JVD GI normal to inspection, nondistended, normoactive bowel sounds, soft to palpation, non-tender and non-distended Extremity normal to inspection, full ROM and no clubbing, cyanosis or edema Extremity Narrative: 1+ bipedal pitting edema Skin no rashes or lesions noted Neuro oriented x3, CN's II-XII intact bilaterally, moves all extremities and no focal motor deficits Neuro Narrative: Confused, moving all extremities spontaneously Sensorium / Orientation: awake and alert Speech: speech normal Psych affect normal Weight / BMI Weight Weight: 64.9 kg Body Mass Index (BMI) 19.9 ABG / Lab / Microbiology Data Result Diagrams: 10/21/21 03:43 10/21/21 03:43 Laboratory: Laboratory Results - last 24 hr 10/21/21 03:43: Sodium 143, Potassium 3.4 L, Chloride 117 H, Carbon Dioxide 21.0, Anion Gap 5, BUN 24 H, Creatinine 1.33 H, Estim Creat Clear Calc 35.92, Est GFR (MDRD) Af Amer 65, Est GFR (MDRD) Non-Af 54 L, BUN/Creatinine Ratio 18.0, Glucose 88, Calcium 7.4 L 10/21/21 03:43: WBC 2.4 L, RBC 2.42 L, Hgb 8.4 L, Hct 25.3 L, MCV 104.5 H, MCH 34.7 H, MCHC 33.2, RDW Std Deviation 58.5 H, RDW Coeff of Andrew 15.5 H, Plt Count 219, MPV 10.3, Immature Gran % (Auto) 1.200 H, Neut % (Auto) 67.3, Lymph % (Auto) 23.2, [place] % (Auto) 7.9, Eos % (Auto) 0.4, Baso % (Auto) 0.0, Absolute Neuts (auto) 1.6 L, Absolute Lymphs (auto) 0.56 L, Nucleated RBC % 0, Differential Comment SCANNED, Diff Path Review May foll, Anisocytosis 1+ Microbiology: Microbiology 10/19/21 15:50 Blood Culture (Wb) - Venous Blood Culture - Preliminary No growth in 48 hours. 10/19/21 15:18 Blood Culture (Wb) - Anticubital Left Blood Culture - Preliminary No growth in 48 hours. 10/19/21 16:54 Urine, Clean Catch Urine Culture - Preliminary Culture exhibits no growth. 10/19/21 15:32 Mucosa - Nasopharyngeal Influenza Types A,B Direct FA (LADI) - Final 10/19/21 15:17 Nasal Secretion SARS-CoV-2 Antigen (Rapid) - Final Radiography Diagnostic Testing: Radiology Impression Echocardiogram 10/19/21 18:09 Interpretation Summary Normal LV size. The estimated ejection fraction is 60 %. Stage 2 diastolic dysfunction. Pulmonary artery systolic pressure is 35 mmHg. Mild diffuse aortic valve thickening. Ordering Physician: Rose Lopez Referring Physician: Gabriel Mares M.D. Performed By: Alex Leong RCS D/C Instructions Discharge Diet: Low fat / Low cholesterol Meaningful Use Info Meaningful Use Diagnoses (Choose all that apply): None applicable Discharge Plan Admission Admit Date/Time: 10/19/21 17:24 Primary Reason for Your Visit: General Illness Attending Provider: Keshia Quintana Primary Care Provider: Gabriel Mares Consulting Providers: Angeline Judd Discharge Orders/Prescriptions Prescriptions: Continued bevacizumab 25 mg/mL intravenous solution 25 mg/mL solution 1.25 mg INTRAVIT .COMPLEX RF: 0 hydroxyurea [Hydrea] 500 mg capsule 500 mg PO MOTUWETHFR RF: 0 atorvastatin 20 MG tablet 20 mg PO QHS RF: 0 aspirin 81 MG tablet,chewable 81 mg PO QHS RF: 0 ramipril 5 MG capsule 10 mg PO DAILY RF: 0 tamsulosin 0.4 mg capsule 0.4 mg PO QHS RF: 0 metoprolol tartrate 25 mg tablet 25 mg PO BID Qty: 180 RF: 4 Referrals / Follow Up: Gabriel Mares MD [Primary Care Provider] - 10/30/21 10:00 am Buster Rosario MD [STAFF PHYSICIAN] - See Referral Note (as directed by office) Disposition Disposition (needs filled in before D/C Order can be placed): Home, Self Care Charges/Coding Visit Charges Inpatient E&M: 03862 Disch Hosp
--- NOTE | 2021-10-21 14:26 | CASEMGMT ---
Per therapy, pt did much better today and therapy states ok for pt to go home. Call to daughter to update and she states she thought pt was much better today also and would like for him to go home with [facility]. Order placed for PT/OT, VINICIUS and aide. Call to Anika at [facility] with referral and she called this [facility] stating they can accept pt but unsure when SOC would be and daughter is fine with that, Anika aware and is also aware to call daughter to set up SOC. Pt/daughter updated on all, voice understanding and no further questions/concerns/needs. Ladi LEMUS CM
[2021-10-22 09:33] LABS: Pathologist Review Reviewed
== END 2021-10-21 13:14 | disposition home health service (06) ==
LOC: ED 17:32 → PCU 17:37
PROVIDERS: Family Medicine; Nurse Practitioner Family; Admitting Provider Student in an Organized Health Care Education/Training Program; Emergency Provider Emergency Medicine; PCP Internal Medicine; Visit Provider Internal Medicine
DX: R77.8 Other specified abnormalities of plasma proteins (principal); N17.9 Acute kidney failure, unspecified; G91.2 (Idiopathic) normal pressure hydrocephalus; E11.9 Type 2 diabetes mellitus without complications; Z79.84 Long term (current) use of oral hypoglycemic drugs; R91.8 Other nonspecific abnormal finding of lung field; I25.5 Ischemic cardiomyopathy; Z20.822 Contact with and (suspected) exposure to COVID-19; N40.1 Benign prostatic hyperplasia with lower urinary tract symptoms; I10 Essential (primary) hypertension; R33.8 Other retention of urine; R60.0 Localized edema; E78.5 Hyperlipidemia, unspecified; R51.9 Headache, unspecified; G93.41 Metabolic encephalopathy; R50.9 Fever, unspecified; I25.10 Atherosclerotic heart disease of native coronary artery without angina pectoris; Z23 Encounter for immunization; Z79.899 Other long term (current) drug therapy; Z79.82 Long term (current) use of aspirin
CPT/HCPCS: 36415; 70450; 71045; 80048; 80053; 81001; 83605; 84484; 85025; 85610; 85730; 87040; 87086; 87426; 87635; 87804; 93005; 93306; 96361; 96365; 96366; 96376; 97162; 97166; 97530; 97802; 99218; 99285; G0008; J7030; J7040; Q9957; 90686; A4216; G0378; U0003; U0005

== ENCOUNTER 2021-11-16 14:21 | Inpatient (IN) | payer MEDICARE, SELFPAY ==
[2021-11-16 14:22] VITALS: BP 129/54; PULSE 83; RESP 20; TEMP 36.7; O2SAT 94; BMI 20.2
--- NOTE | 2021-11-16 15:13 | EDS_ITS ---
HPI History of Present Illness Chief Complaint: Lower Extremity Injury Narrative Narrative: Patient presents with his daughter because of left foot redness and drainage. because his hemoglobin A1c They state that he is formally diabetic and quit taking his medication 6 months ago was acceptable according to his primary care provider. His history and physical is mildly limited secondary to his age. His daughter states that her mother put lotion on the patient's feet 2 days ago and did not notice She states that they have been draining how red his left foot and toes were draining fluid. They went to urgent care, and sent him to the emergency department for evaluation. He denies any fevers or chills. No nausea or vomiting. 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 His daughter presents him for the redness of his toes and forefoot and the purulent drainage. 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 HLD (hyperlipidemia) HTN (hypertension) Hydrocephalus Ischemic cardiomyopathy Lung mass Mass of lower lobe of left lung Normal pressure hydrocephalus Type II diabetes mellitus Home Medications aspirin 81 mg PO QHS 04/02/16 [History Last Taken 10/18/21] atorvastatin 20 mg PO QHS 04/02/16 [History Last Taken 10/18/21] ramipril 10 mg PO DAILY 04/02/16 [History Last Taken 10/19/21] bevacizumab 25 mg/mL intravenous solution 1.25 mg INTRAVIT .COMPLEX 12/08/17 [History Last Taken 10/09/21] hydroxyurea 500 mg capsule 500 mg PO MOTUWETHFR 12/08/17 [History Last Taken 10/17/21] tamsulosin 0.4 mg PO QHS 10/19/21 [History Last Taken 10/18/21] chlorthalidone 25 mg PO DAILY 11/16/21 [History Last Taken Unknown] metoprolol tartrate 25 mg PO BID 11/16/21 [History Last Taken Unknown] pyridoxine (vitamin B6) [Vitamin B-6] 100 mg PO DAILY 11/16/21 [History Last Taken Unknown] Allergy/AdvReac Type Severity Reaction Status Date / Time No Known Allergies Allergy Verified 10/19/21 15:23 Family History Father CAD (coronary artery disease) Myocardial infarction Mother , age 80+, cause not listed No problems noted. Surgical History History of bronchoscopy History of left heart catheterization S/P CABG x 3 Social History (Updated 11/16/21 @ 17:[address] Maryjo Mariee MD) household members: spouse Smoking Status: Former smoker quit date: 09/20/84 pack-years: 20 how long ago did patient quit smoking: Quit ~ 50 years prior, 1 ppd since teen until quit. alcohol intake: never substance use type: does not use ROS ROS ED ROS Narrative Constitutional: No fever, no chills. HEENT: No sore throat. No neck pain. No loss of vision. No rhinorrhea. Cardiovascular: No chest pain. No palpitations. No pedal edema. Respiratory: No cough, no shortness of breath. Abdominal: No abdominal pain. No nausea. No vomiting. Genitourinary: No dysuria. No hematuria. Musculoskeletal: No myalgias. No arthralgias. Purulent drainage coming from toes. Neurologic: No headaches. No dizziness. No lightheadedness. Skin: No rash. Redness of left toes and forefoot. Psychiatric: No depression. No anxiety. EXAM Physical Exam Narrative Exam Narrative: Afebrile. Vital signs noted. Nontoxic-appearing. HEENT: Normocephalic. Atraumatic. PERRL, EOMI. Neck soft and supple. No point tenderness or step off. Cardiovascular: Regular rate and rhythm. No murmurs, rubs, or gallops appreciated. Respiratory: No tachypnea. Lungs clear to auscultation bilaterally. Gastrointestinal: Abdomen soft, nontender, with normoactive bowel sounds. No rebound or guarding. Neurological: Awake. Alert. Nonfocal, nonlateralizing. Skin: No rash. Normal color. No pallor. Musculoskeletal: Positive bilateral pedal edema. Full range of motion extremities. Very moistened skin of toes on left foot with macerated epidermal tissue. Positive erythema to the forefoot. Positive pedal edema. Full range of motion of ankle. Const Vital Signs: 11/16/21 14:22 11/16/21 16:44 Temperature 98.1 F 97.4 F L Temperature Source Temporal Temporal Pulse Rate 83 82 Respiratory Rate 20 H 18 Blood Pressure 129/54 H 137/65 H Blood Pressure Mean 79 89 Pulse Ox 94 100 Oxygen Delivery Method Room Air Room Air MDM MDM MDM Narrative Medical decision making narrative: I feel this is more of a complex diabetic foot cellulitis. I will obtain blood cultures and basic laboratory work and x- ray of the left foot. He will be started on IV antibiotics in the form of Unasyn after blood cultures obtained. Patient does not have an elevated white count, normal at 5.2, hemoglobin stable at 11.3. Platelet count normal at 349. I do intend to have the patient admitted to the hospital for his diabetic foot cellulitis. Initially, I discussed the patient with Dr. Mariee who was seen and evaluated the patient in the emergency department. He will be admitted, although his laboratory work and x-rays are still pending. I did check his lactic acid which is normal at 1.5. Chloride slightly elevated at 110 with a creatinine of 1.64. Disposition is admit in stable condition. Lab Data Attestation: I reviewed the patient's lab results. Labs: Laboratory Results - last 24 hr 11/16/21 11/16/21 11/16/21 16:10 16:10 16:10 WBC 5.2 RBC 3.27 L Hgb 11.3 L Hct 34.1 L MCV 104.3 H MCH 34.6 H MCHC 33.1 RDW Std Deviation 58.2 H RDW Coeff of Andrew 15.2 H Plt Count 349 MPV 10.5 Sodium 142 Potassium 4.1 Chloride 110 H Carbon Dioxide 28.0 Anion Gap 4 L BUN 42 H Creatinine 1.64 H Estim Creat Clear Calc 29.52 Est GFR (MDRD) Af Amer 51 L Est GFR (MDRD) Non-Af 42 L BUN/Creatinine Ratio 25.6 H Glucose 174 H Lactic Acid 1.5 Calcium 8.8 Magnesium Total Bilirubin 0.50 AST 15 ALT 28 Alkaline Phosphatase 94 Total Protein 6.9 Albumin 3.4 Globulin 3.5 Albumin/Globulin Ratio 1.0 11/16/21 16:10 WBC RBC Hgb Hct MCV MCH MCHC RDW Std Deviation RDW Coeff of Andrew Plt Count MPV Sodium Potassium Chloride Carbon Dioxide Anion Gap BUN Creatinine Estim Creat Clear Calc Est GFR (MDRD) Af Amer Est GFR (MDRD) Non-Af BUN/Creatinine Ratio Glucose Lactic Acid Calcium Magnesium 2.3 Total Bilirubin AST ALT Alkaline Phosphatase Total Protein Albumin Globulin Albumin/Globulin Ratio Discharge Plan Disposition Disposition: Acute Care Hospital [facility] Discharge Date/Time: 11/16/21 17:26
[2021-11-16 16:22] LABS: Hematocrit 34.1 % (40-54); Hemoglobin 11.3 g/dL (13.0-16.5); Mean Corp Hgb Conc 33.1 g/dL (32-36); Mean Corpuscular Hgb 34.6 pg (27.0-32.0); Mean Corpuscular Volume 104.3 fL (80-94); Mean Platelet Vol. 10.5 fl (6.2-12.0); Platelet Count 349 K/mm3 (150-450); RBC Distribution Width CV 15.2 % (11.6-14.6); RBC Distribution Width SD 58.2 fl (35.1-43.9); Red Blood Count 3.27 M/mm3 (4.6-6.2); White Blood Count 5.2 K/mm3 (4.4-11.0)
--- NOTE | 2021-11-16 16:40 | RAD_ITS ---
EXAM: XR LEFT FOOT COMPLETE, 3 OR MORE VIEWS CLINICAL INDICATION: cellulitis TECHNIQUE: Frontal, lateral and oblique views of the left foot. This report was created using [employer] report generation technology. COMPARISON: None. FINDINGS: BONES/JOINTS: Unremarkable. No acute fracture. No subluxation. Normal alignment. Preservation of the joint space. No sclerotic or destructive changes observed. SOFT TISSUES: Soft tissue swelling around the foot. No radiopaque foreign body. RAD/Foot min 3 Views IMPRESSION: Soft tissue swelling around the foot. Electronically Signed: López Baez MD at 17:47 EST ,
[2021-11-16 16:41] LABS: AST(SGOT) 15 U/L (15-37); Alanine Aminotransfer ALT/SGPT 28 U/L (16-61); Albumin, Serum 3.4 g/dL (3.2-5.0); Alkaline Phosphatase 94 U/L (45-117); Anion Gap 4 (5-15); BUN 42 mg/dL (7-18); BUN/Creat Ratio 25.6 RATIO (10-20); Calcium,Total 8.8 mg/dL (8.5-10.1); Chloride 110 mmol/L (98-107); Creatinine, Serum 1.64 mg/dL (0.70-1.30); EST Glomerular Filtration Rate 42 mL/min (>60); Est Glom Filt Rate - Afr Amer 51 mL/min (>60); Estimated Creatinine Clearance 29.52 ml/min; Globulin 3.5 g/dL (2.2-4.2); Glucose 174 mg/dL (74-106); Potassium 4.1 mmol/L (3.5-5.1); Protein, Total 6.9 g/dL (6.4-8.2); Sodium Level 142 mmol/L (136-145)
[2021-11-16 16:44] VITALS: BP 137/65; PULSE 82; RESP 18; TEMP 36.3; O2SAT 100
[2021-11-16 16:45] LABS: Lactic Acid 1.5 mmol/L (0.4-1.9)
--- NOTE | 2021-11-16 16:52 | HP.PCM.HOS_ITS ---
HPI - General General Date of Admission: 11/16/21 Date of Service: 11/16/21 Chief Complaint: L foot redness, edema, drainage. HPI Narrative The patient is an 86 y/o M w/ PMHx: CKD stage III unclear subtype, Hx CVA: BPH, CAD s/p CABG x 3 w/ Ischemic Cardiomyopathy, Hx Left LL Lung Mass c/w chronic inflammation, HTN, HLD, Diabetes mellitus type II, Hx Hydrocephalus, recent discharge 10/21/21 with initial concern infection without acute findings on work- up and elevated troponin with cardiology evaluation with decision for outpatient planned future stress testing who now re-presents to the [facility] ED on 11/16/21 with history of onset left lower extremity foot redness and drainage with history of being a well-controlled diabetic taken off his medications approximately 6 months ago with no history of left lower extremity acute findings at least 2 days prior as patient's daughter notes that her mother put lotion on his feet and there is nothing at that time however since he has had drainage from the left foot prompting urgent care evaluation who referred him to the ED. Patient denies any fevers or chills. Patient does have chronic diabetic neuropathy and is not noting significant pain. Work-up in the ED included T 98.1, heart rate 83, BP 129/54, respiratory rate 20, 94% on room air, CV WC 5.2, hemoglobin 11.3, platelet 4049 with no differential performed, CMP with chloride 110, BUN/creatinine 42/1.64, glucose 174, lactic acid 1.5 otherwise unremarkable hepatic profile, plain film of the left foot pending upon requested evaluation, blood culture x2 obtained per ED. In the ED patient ministered Unasyn therapy. [facility] Medical History Atherosclerotic heart disease of [place] coronary artery without angina pectoris Essential thrombocytosis HLD (hyperlipidemia) HTN (hypertension) Hydrocephalus Ischemic cardiomyopathy Lung mass Mass of lower lobe of left lung Normal pressure hydrocephalus Type II diabetes mellitus Home Medications aspirin 81 mg PO QHS 04/02/16 [History Last Taken 10/18/21] atorvastatin 20 mg PO QHS 04/02/16 [History Last Taken 10/18/21] ramipril 10 mg PO DAILY 04/02/16 [History Last Taken 10/19/21] bevacizumab 25 mg/mL intravenous solution 1.25 mg INTRAVIT .COMPLEX 12/08/17 [History Last Taken 10/09/21] hydroxyurea 500 mg capsule 500 mg PO MOTUWETHFR 12/08/17 [History Last Taken 10/17/21] tamsulosin 0.4 mg PO QHS 10/19/21 [History Last Taken 10/18/21] chlorthalidone 25 mg PO DAILY 11/16/21 [History Last Taken Unknown] metoprolol tartrate 25 mg PO BID 11/16/21 [History Last Taken Unknown] pyridoxine (vitamin B6) [Vitamin B-6] 100 mg PO DAILY 11/16/21 [History Last Taken Unknown] Allergy/AdvReac Type Severity Reaction Status Date / Time No Known Allergies Allergy Verified 10/19/21 15:23 Family History Father CAD (coronary artery disease) Myocardial infarction Mother , age 80+, cause not listed No problems noted. Surgical History History of bronchoscopy History of left heart catheterization S/P CABG x 3 Social History (Updated 11/16/21 @ 17:[address] Maryjo Mariee MD) household members: spouse Smoking Status: Former smoker quit date: 09/20/84 pack-years: 20 how long ago did patient quit smoking: Quit ~ 50 years prior, 1 ppd since teen until quit. alcohol intake: never substance use type: does not use ROS ROS Narrative Admission Review of Systems: CONSTITUTIONAL: No weight loss, fever, chills, + weakness or fatigue. HEENT: Eyes: No visual loss, blurred vision, double vision or yellow sclerae. Ears, Nose, Throat: No hearing loss, sneezing, congestion, runny nose or sore throat. SKIN: + Diabetic left foot, erythematous, swollen, macerated. CARDIOVASCULAR: No chest pain, chest pressure or chest discomfort, palpitations, edema, orthopnea, syncopal events. RESPIRATORY: No shortness of breath, cough or sputum, wheezing, hemoptysis. GASTROINTESTINAL: No anorexia, nausea, vomiting or diarrhea, abdominal pain, melena, BRBPR. GENITOURINARY: No dysuria, frequency, urgency or retention. NEUROLOGICAL: No headache, dizziness, syncope, paralysis, ataxia, numbness or tingling in the extremities, focal weakness, change in bowel or bladder control, seizure. MUSCULOSKELETAL: + muscle, back pain, joint pain or stiffness. HEMATOLOGIC: No anemia, bleeding or bruising. LYMPHATICS: No enlarged nodes. No history of splenectomy. PSYCHIATRIC: No history of depression or anxiety. ENDOCRINOLOGIC: No reports of sweating, cold or heat intolerance. No polyuria or polydipsia. ALLERGIES: No history of asthma, hives, eczema or rhinitis. Vital Signs Vital Signs Vital Signs: 11/16/21 14:22 11/16/21 16:44 Temperature 98.1 F 97.4 F L Temperature Source Temporal Temporal Pulse Rate 83 82 Respiratory Rate 20 H 18 Blood Pressure 129/54 H 137/65 H Blood Pressure Mean 79 89 Pulse Ox 94 100 Oxygen Delivery Method Room Air Room Air Weight Weight: 145 lb Body Mass Index (BMI) 20.2 Physical Exam Narrative Physical Examination: General: Awake, alert, oriented x 3 and cooperative, seated upright in the ED bed, fatigued otherwise no acute distress Skin: Normal color, normal turgor, no icterus, no cyanosis except for significant occasional staged ecchymoses and notable left lower extremity dorsal erythema to the left foot, edematous, tender palpation, increased warmth, macerated distally with yellow slough but no obvious wound. HEENT: AT/NC, EOMI, PERRLA, mildly dry MM, no carotid bruits or JVD noted. Lungs: Mild diminished, greater bases, poor effort, no rales, ronchi or wheezing. Heart: Currently regular rate and rhythm; no gallop, rub audible. Abdomen: Soft, NTTP, ND, normal BS, no HSM. Extremities: No cyanosis, no clubbing, bilateral pedal to distal lane edema, see skin. Neurological: Patient awake, alert, oriented as noted, cognitive function intact; pupils equally reactive to light and accommodation, cranial nerves II- XII grossly normal, moving all 4 extremities, no focal deficits, strength mo derately global decrease secondary to acute presentation. Psychiatric: Affect appears fatigued otherwise normal, no acute evidence of depressive or anxiety feelings. Results Lab / Micro Data Result Diagrams: 11/16/21 16:10 11/16/21 16:10 Labs: Laboratory Results - last 24 hr 11/16/21 16:10: WBC 5.2, RBC 3.27 L, Hgb 11.3 L, Hct 34.1 L, MCV 104.3 H, MCH 34.6 H, MCHC 33.1, RDW Std Deviation 58.2 H, RDW Coeff of Andrew 15.2 H, Plt Count 349, MPV 10.5 11/16/21 16:10: Sodium 142, Potassium 4.1, Chloride 110 H, Carbon Dioxide 28.0, Anion Gap 4 L, BUN 42 H, Creatinine 1.64 H, Estim Creat Clear Calc 29.52, Est GFR (MDRD) Af Amer 51 L, Est GFR (MDRD) Non-Af 42 L, BUN/Creatinine Ratio 25.6 H , Glucose 174 H, Calcium 8.8, Total Bilirubin 0.50, AST 15, ALT 28, Alkaline Phosphatase 94, Total Protein 6.9, Albumin 3.4, Globulin 3.5, Albumin/Globulin Ratio 1.0 11/16/21 16:10: Lactic Acid 1.5 Assessment & Plan Assessment/Plan (1) Diabetic foot infection: PLAN: The patient is an 86 y/o M w/ PMHx: CKD stage III unclear subtype, Hx CVA: BPH, CAD s/p CABG x 3 w/ Ischemic Cardiomyopathy, Hx Left LL Lung Mass c/w chronic inflammation, HTN, HLD, Diabetes mellitus type II, Hx Hydrocephalus, recent discharge 10/21/21 w/ elevated troponin with cardiology evaluation with decision for outpatient planned future stress testing who now re-presents to the [facility] ED on 11/16/21 with history of onset left lower extremity foot redness and drainage with history of being a well-controlled diabetic taken off his medications approximately 6 months ago with no history of left lower extremity acute findings at least 2 days prior as patient's daughter notes that her mother put lotion on his feet and there is nothing at that time however since he has had drainage from the left foot prompting urgent care evaluation who referred him to the ED. #1. Left lower extremity diabetic foot infection, cellulitis: Will admit to medical surgical floor, maintain on IV Zosyn and Vancomycin pending MRSA screen, if discharge although no overt wounds would plan to obtain Wound Cx/Wound MRSA PCR, plan repeat CBC in AM, continue affected extremity elevation above heart when seated and in bed, monitor erythema outline with VS checks, will request p odiatry evaluation, maintain on fall precautions, discussed proper foot care and hygiene. #2. CAD, Ischemic Cardiomyopathy w/ recent evaluation elevated troponin: Recent presentation with elevated trop, decision per Cardiology for outpatient follow- up with possible outpatient stress testing, ECHO w/ EF 60% w/ stage II diastolic dysfunction, PASP 35 mmHg w/ diffuse aortic valve thickening. We will continue aspirin, statin, metoprolol and ramipril regimen. Continue with planned outpatient Cardiology follow-up for possible stress test outpatient. #3. Mild acute renal insufficiency on Chronic Kidney Disease Stage III, unclear subtype: Admission BUN/Cr 42/1.64, baseline renal function 1.2-1.3 primarily, repeat BMP in AM. #4. Left lower lung mass, Known: Patient with lymphoplasmacytic infiltrate consistent with chronic inflammation on biopsy in 2016. #5. Hypertension: Continue home regimen including metoprolol, ramipril with hold parameters as needed, will temporarily hold chlorthalidone as judiciously hydrating, PRN hydralazine. #6. Hyperlipidemia: We will continue patient statin therapy. #7. Diabetes mellitus type II: No current regimen listed, will obtain HgBA1c, maintain on ADA diet, accu checks w/ ISS. #8. Hx CVA: Most recent presentation for 10/19/2021 CT of the brain with chronic lacunar infarct in the left caudate nucleus with chronic involutional and ischemic changes, continue aspirin, statin, hypertensive regimen, currently not on a diabetic regimen #9. Hx Hydrocephalus: s/p FIRST AID ATTENDANT shunt placement. #10. BPH: We will continue home Flomax regimen. #11. DVT prophylaxis: SCDs, heparin. #12. CODE status: Patient TOMY is his daughter who is present and living will is currently in place. Discussed CODE status at length including difference between FULL code, DNR-CCA and DNR-CC status. Following discussions about the differences in these status, requested DNR-CCA, no intubation status. Advanced Care Planning Face to Face Time: 16 minutes. Charges/Coding Visit Charges Inpatient E&M: 28865 Init Hosp L3 Procedures Hospitalists Procedures: 34695 Advncd Care Plan 30 Min
[2021-11-16 17:09] VITALS: BMI 18.9
[2021-11-16 17:27] LABS: Magnesium 2.3 mg/dL (1.6-2.6)
[2021-11-16] MEDS: 0.9% Normal Saline 1,000 ML 100 ML IV (17:52)
[2021-11-16 18:21] VITALS: BP 164/66; PULSE 89; RESP 18; TEMP 36.7; O2SAT 99
[2021-11-16 18:35] LABS: Bedside Glucose 167 mg/dL (70-110)
--- NOTE | 2021-11-16 18:36 | PCM.RX.CS ---
Consult Pharmacy has been consulted to manage selected antiobiotic: Vancomycin Type of Consult: New start Suspected Infection: Skin/Soft tissue Labs: Sodium 142 mmol/L (136-145) 11/16/21 16:10 Potassium 4.1 mmol/L (3.5-5.1) 11/16/21 16:10 Chloride 110 mmol/L (98-107) H 11/16/21 16:10 Carbon Dioxide 28.0 mmol/L (21.0-32.0) 11/16/21 16:10 Anion Gap 4 (5-15) L 11/16/21 16:10 BUN 42 mg/dL (7-18) H 11/16/21 16:10 Creatinine 1.64 mg/dL (0.70-1.30) H 11/16/21 16:10 Est GFR (MDRD) Af Amer 51 mL/min (>60) L 11/16/21 16:10 Est GFR (MDRD) Non-Af 42 mL/min (>60) L 11/16/21 16:10 BUN/Creatinine Ratio 25.6 RATIO (10-20) H 11/16/21 16:10 Glucose 174 mg/dL (74-106) H 11/16/21 16:10 Weight used for dosin.9 kg Estimated Creatinine Clearance: 29.5ml/min Goal Trough: 15-20 mcg/mL Pharmacy Plan for Drug Dosing: Give initial loading dose (25mg/kg) of 1750mg IV x1 (the patient's weight had been listed as 65.8kg), then will continue with 500mg IV q24h. Will check a trough level before the 3rd total dose. Pharmacy Service will continue to monitor and adjust dosing as required. Follow-Up Labs: Trough Vancomycin Labs to be done on [date and time ordered]: 11/18/21 17:30
[2021-11-16 19:55] LABS: M R Staph aureus DNA By PCR Negative (Negative); Probe Check PASS; Specimen Processing Control PASS
[2021-11-16 20:07] VITALS: BP 154/65; PULSE 104; RESP 16; TEMP 36.8; O2SAT 98
[2021-11-16 22:54] VITALS: BP 161/73; PULSE 124
[2021-11-16 22:58] VITALS: PULSE 124
[2021-11-16] MEDS: Atorvastatin Calcium 20 MG Tablet PO (22:58)
[2021-11-16] MEDS: Metoprolol Tartrate 25 MG Tablet PO (22:58)
[2021-11-16] MEDS: Tamsulosin HCl 0.4 MG Capsule PO (22:58)
[2021-11-16] MEDS: Heparin Injection (Vial) 5,000 UNIT/ML VIAL 5000 UNIT SC (22:58)
[2021-11-16] MEDS: Aspirin 81 MG TAB.CHEW PO (22:58)
[2021-11-16] MEDS: Insulin Lispro 100 UNIT/ML INSULN.PEN SC (23:01)
[2021-11-17] VITALS (7 sets, daily range): BP systolic 110–136; BP diastolic 45–87; PULSE 66–85; RESP 16–18; TEMP 36.5–36.9; O2SAT 95–99
[2021-11-17 01:21] LABS: Bedside Glucose 192 mg/dL (70-110)
[2021-11-17] MEDS: Acetaminophen 325 MG Tablet 650 MG PO ×2 (02:40→16:53)
[2021-11-17] MEDS: 0.9% Saline Lock 10 ML Syringe IV ×2 (02:41→23:24)
[2021-11-17 05:56] LABS: Absolute Lymphocyte Count 0.56 X10^3/uL (0.83-4.51); Absolute Neutrophil Count 3.2 X10^3/uL (2.0-7.7); Basophil# 0.01 X10^3/uL; Basophil% 0.2 % (0-1); Eosinophil# 0.06 X10^3/uL; Eosinophils% 1.5 % (0-5); Hematocrit 29.2 % (40-54); Hemoglobin 9.7 g/dL (13.0-16.5); Lymphocyte # 0.56 X10^3/ul (0.83-4.51); Lymphocyte % 13.8 % (19-41); Mean Corp Hgb Conc 33.2 g/dL (32-36); Mean Corpuscular Hgb 34.8 pg (27.0-32.0); Mean Corpuscular Volume 104.7 fL (80-94); Mean Platelet Vol. 10.9 fl (6.2-12.0); Monocyte# 0.25 X10^3/uL; Monocyte% 6.1 % (0-10); NRBC Flagged by Analyzer 0 % (0-5); Neutrophil # 3.15 X10^3/uL (2.7-7.7); Neutrophil % 77.4 % (47-70); POSITIVE DIFFERENTIAL YES; Platelet Count 275 K/mm3 (150-450); RBC Distribution Width CV 14.9 % (11.6-14.6); RBC Distribution Width SD 57.3 fl (35.1-43.9); Red Blood Count 2.79 M/mm3 (4.6-6.2); White Blood Count 4.1 K/mm3 (4.4-11.0)
[2021-11-17 06:06] LABS: Differential Indicated SCAN CRITERIA MET
[2021-11-17 06:18] LABS: Differential Comment SCANNED
[2021-11-17 06:24] LABS: ALB/GLOB Ratio 0.9 RATIO (0.9-2.4); AST(SGOT) 20 U/L (15-37); Alanine Aminotransfer ALT/SGPT 23 U/L (16-61); Albumin, Serum 2.7 g/dL (3.2-5.0); Alkaline Phosphatase 77 U/L (45-117); Anion Gap 6 (5-15); BUN 37 mg/dL (7-18); Calcium,Total 7.8 mg/dL (8.5-10.1); Chloride 112 mmol/L (98-107); Creatinine, Serum 1.54 mg/dL (0.70-1.30); EST Glomerular Filtration Rate 46 mL/min (>60); Est Glom Filt Rate - Afr Amer 55 mL/min (>60); Estimated Creatinine Clearance 28.62 ml/min; Globulin 2.9 g/dL (2.2-4.2); Glucose 131 mg/dL (74-106); Potassium 3.8 mmol/L (3.5-5.1); Protein, Total 5.6 g/dL (6.4-8.2); Sodium Level 142 mmol/L (136-145)
[2021-11-17 06:56] LABS: Bedside Glucose 134 mg/dL (70-110)
[2021-11-17] MEDS: Ramipril 10 MG Capsule PO (10:02)
[2021-11-17] MEDS: Metoprolol Tartrate 25 MG Tablet PO ×2 (10:02→22:53)
[2021-11-17] MEDS: Hydroxyurea 500 MG Capsule PO (10:02)
[2021-11-17] MEDS: Pyridoxine HCl 100 MG Tablet PO (10:02)
[2021-11-17] MEDS: Heparin Injection (Vial) 5,000 UNIT/ML VIAL 5000 UNIT SC ×2 (10:19→22:53)
--- NOTE | 2021-11-17 11:50 | CASEMGMT ---
ALLAN CHANCE Assessment: Face to Face with pt for initial transition planning/care coordination assessment. ALLAN CHANCE introduced self and role at [facility], pt voices understanding and consents to assessment. Pt is A/O x2, thought he was at [facility] hospital and answers all questions appropriately at this time although slow. Pt dtr at bedside. Care providers, pharmacy, and demographics verified/updated. Admitting Dx: Diabetic foot infection PCP:Vishnu Specialists: Veronica, eye doctor at [facility] Brian; Abraham, cardio; Jose M, pulm; Sylvester, pod; Marcel, neuro Preferred Pharmacy: [facility] Prescription Benefit: yes LW/HPOA: Pt has a LW on file at [facility], not his DPOA. Pt dtr states that they just redid their DPOA last week as it was old. She will provide copies to the hospital when they are finalized. LNOK: Ranjan Winn, ; Evelyn Giselle, dtr Living Arrangements: Pt lives with in a single story house with a ramp to enter. Pt reports he is I in ADL's. Transportation: Pt does not drive, dtr provides transportation to medical appts. DME/HHC/SNF: Pt has a shower chair and grab bars in the bathroom that was just recommended by [facility] HHC therapy. Pt also has a cane that he uses in the house and a FWW that he uses when out and about. [facility] and [facility]. Pt denies previous SNF stays. Pt does not check blood sugars. Pt has recently been taken off of diabetic medications d/t risk outweighing benefit. Pt states he prefers to go home but would be agreeable to any recommendations. Pt and will be moving to [facility] in approx 1 month. The apartment is ready but they are awaiting the beds that were ordered. Pt states he recently in the last 2-3 weeks has been having episodes in the morning of confusion when he wakes up. Pt dtr states she has a camera and video on their home with alarms and she can speak to pt through her phone if he tries to leave the home. Pt is agreeable to adding SN to the HHC if needed. ALLAN CHANCE to follow for possibility of IV atb or wound care. Pt has chosen his dtr as his designated person to discuss dc planning with. Pt states no further concerns/needs. Advised pt to ask CM if any further question/concerns/needs arise, voices understanding. Pt Goal: Home to resume HHC. Plan: TBD pending course and treatment.
[2021-11-17 12:31] LABS: Bedside Glucose 120 mg/dL (70-110)
--- NOTE | 2021-11-17 12:45 | PCM.HP.STD ---
[facility] - General General Date of Admission: 11/16/21 Chief Complaint: L foot redness, edema, drainage. HPI Narrative SHERRY MOHAMUD, is a 86 M who presents to ed with cellulitis of left foot and ankle. patient is currently seen in bed [facility] of [facility] for cellulitis of left foot and ankle. apparently, he had developed redness and swelling of left foot and ankle. he presented to the ED and was admitted and started on vancomycin and zosyn. he has lower extremity dress with abdi compression. xrays of left foot reviewed and shows no acute findings other than soft-tissue swelling. patient denies n/v/f/c. [facility] Medical History (Updated 11/17/21 @ 12:[address] Emerson Phan, HAIR) Atherosclerotic heart disease of [place] coronary artery without angina pectoris Coronary artery disease Diabetes Diabetic foot infection Essential thrombocytosis Former smoker HLD (hyperlipidemia) HTN (hypertension) Hydrocephalus Ischemic cardiomyopathy Kidney stones Lung mass Mass of lower lobe of left lung Myocardial infarct Normal pressure hydrocephalus Type II diabetes mellitus Home Medications aspirin 81 mg PO QHS 04/02/16 [History Last Taken 10/18/21] atorvastatin 20 mg PO QHS 04/02/16 [History Last Taken 10/18/21] ramipril 10 mg PO DAILY 04/02/16 [History Last Taken 10/19/21] bevacizumab 25 mg/mL intravenous solution 1.25 mg INTRAVIT .COMPLEX 12/08/17 [History Last Taken 10/09/21] hydroxyurea 500 mg capsule 500 mg PO MOTUWETHFR 12/08/17 [History Last Taken 10/17/21] tamsulosin 0.4 mg PO QHS 10/19/21 [History Last Taken 10/18/21] chlorthalidone 25 mg PO DAILY 11/16/21 [History Last Taken Unknown] metoprolol tartrate 25 mg PO BID 11/16/21 [History Last Taken Unknown] pyridoxine (vitamin B6) [Vitamin B-6] 100 mg PO DAILY 11/16/21 [History Last Taken Unknown] Allergy/AdvReac Type Severity Reaction Status Date / Time No Known Allergies Allergy Verified 10/19/21 15:23 Family History Father CAD (coronary artery disease) Myocardial infarction Mother , age 80+, cause not listed No problems noted. Surgical History History of bronchoscopy History of left heart catheterization S/P CABG x 3 Social History (Updated 11/16/21 @ 17:[address] Maryjo Mariee MD) household members: spouse Smoking Status: Former smoker quit date: 09/20/84 pack-years: 20 how long ago did patient quit smoking: Quit ~ 50 years prior, 1 ppd since teen until quit. alcohol intake: never substance use type: does not use Vital Signs Vital Signs Vital Signs: 11/16/21 14:22 11/16/21 16:44 11/16/21 18:21 Temperature 98.1 F 97.4 F L 98.0 F Temperature Source Temporal Temporal Oral Pulse Rate 83 82 89 Pulse Strength Respiratory Rate 20 H 18 18 Blood Pressure 129/54 H 137/65 H 164/66 H Blood Pressure [2nd BP] Blood Pressure Mean 79 89 98 Blood Pressure Mean [2nd BP] Blood Pressure Source Monitor Blood Pressure Source [2nd BP] Blood Pressure Position Semi-Fowlers Blood Pressure Position [2nd BP] Blood Pressure Location Right Arm Blood Pressure Location [2nd BP] Pulse Ox 94 100 99 Oxygen Delivery Method Room Air Room Air Room Air 11/16/21 20:07 11/16/21 22:00 11/16/21 22:54 Temperature 98.3 F Temperature Source Oral Pulse Rate 104 H 124 H Pulse Strength Normal (2+) Respiratory Rate 16 Blood Pressure 154/65 H Blood Pressure [2nd BP] 161/73 H Blood Pressure Mean 94 Blood Pressure Mean [2nd BP] 102 Blood Pressure Source Monitor Blood Pressure Source [2nd BP] Monitor Blood Pressure Position Sitting Blood Pressure Position [2nd BP] Sitting Blood Pressure Location Left Arm Blood Pressure Location [2nd BP] Right Arm Pulse Ox 98 Oxygen Delivery Method Room Air 11/16/21 22:58 11/17/21 02:43 11/17/21 09:30 Temperature 98.4 F 98.0 F Temperature Source Oral Oral Pulse Rate 124 H 85 69 Pulse Strength Respiratory Rate 16 16 Blood Pressure 136/87 H 110/45 L Blood Pressure [2nd BP] Blood Pressure Mean 103 66 Blood Pressure Mean [2nd BP] Blood Pressure Source Monitor Monitor Blood Pressure Source [2nd BP] Blood Pressure Position Semi-Fowlers Semi-Fowlers Blood Pressure Position [2nd BP] Blood Pressure Location Right Arm Right Arm Blood Pressure Location [2nd BP] Pulse Ox 96 95 Oxygen Delivery Method Room Air Room Air 11/17/21 10:02 Temperature Temperature Source Pulse Rate 69 Pulse Strength Respiratory Rate Blood Pressure Blood Pressure [2nd BP] Blood Pressure Mean Blood Pressure Mean [2nd BP] Blood Pressure Source Blood Pressure Source [2nd BP] Blood Pressure Position Blood Pressure Position [2nd BP] Blood Pressure Location Blood Pressure Location [2nd BP] Pulse Ox Oxygen Delivery Method Weight Weight: 60.328 kg Body Mass Index (BMI) 18.9 Physical Exam Narrative patient is alert and orientated x 3. he does not appear in any distress vascular: Skin is warm to warm from knee to toes b/l. PT and DP pulses faint due to swelling but CFT is brisk. mild erythema is noted to left foot but per discussion with family, is improving. no deep calf pain is noted. mild pitting edema is noted b/l. Derm: there is dry scaling of b/l feet. redness is noted along dorsal forefoot but per pateint and family, is improving. no maceration is noted 1-4 b/l. toenails 2-5 left and 1-5 right are brittle and dystrophic. left great toenail has been removed m/s: mild swelling is noted to b/l foot and ankle. no calf pain present. Results Medical Records Data Medical Nutrition Assessment Dietitian: Malnutrition Criteria Met Start: 11/17/21 12:14 Freq: Status: Active Protocol: Document 11/17/21 12:14 [facility] (Rec: 11/17/21 12:14 [facility] [id number]) Nutrition Malnutrition Evidence of Malnutrition Exists Yes Malnutrition (severe): Acute Illness/Injury Evidenced By Suboptimal Energy Intake ( Severe),Weight Loss (Severe), Physical Changes (Mild) Intake Problem Increased Nutrient Needs (specify) Etiology (protein) related to skin status Signs/Symptoms as evidenced by PI to R buttock and diabetic foot ulcer to L foot. Status Active Problem Clinical Problem Acute Disease or Injury Related Malnutrition Etiology related to acute illness and decreased appetite when had encephalopathy and febrile illness 1 mo ago and not yet able to consume adequate nutrition to meet est nutritional needs Signs/Symptoms related to <50% po intake and 7.1% wt loss x 1 mo, fat/ muscle loss to temporal/ orbital/clavicle/acromion regions. Status Active Problem Recommendation Dietitian Recommendations/Changes Will change diet to 1600 [address] Consistent CHO / No added salt Will provide 4 oz glucerna shake w/ meals for increased nutrition if consumed. Will order Ryan bid to help w / skin healing if consumed. Lab / Micro Data Result Diagrams: 11/17/21 04:35 11/17/21 04:35 Labs: Laboratory Results - last 24 hr 11/16/21 16:10: WBC 5.2, RBC 3.27 L, Hgb 11.3 L, Hct 34.1 L, MCV 104.3 H, MCH 34.6 H, MCHC 33.1, RDW Std Deviation 58.2 H, RDW Coeff of Andrew 15.2 H, Plt Count 349, MPV 10.5 11/16/21 16:10: Sodium 142, Potassium 4.1, Chloride 110 H, Carbon Dioxide 28.0, Anion Gap 4 L, BUN 42 H, Creatinine 1.64 H, Estim Creat Clear Calc 29.52, Est GFR (MDRD) Af Amer 51 L, Est GFR (MDRD) Non-Af 42 L, BUN/Creatinine Ratio 25.6 H, Glucose 174 H, Calcium 8.8, Total Bilirubin 0.50, AST 15, ALT 28, Alkaline Phosphatase 94, Total Protein 6.9, Albumin 3.4, Globulin 3.5, Albumin/Globulin Ratio 1.0 11/16/21 16:10: Lactic Acid 1.5 11/16/21 16:10: Magnesium 2.3 11/16/21 17:46: POC Glucose 167 H 11/16/21 18:30: MRSA (PCR) Negative 11/16/21 22:57: POC Glucose 192 H 11/17/21 04:35: WBC 4.1 L, RBC 2.79 L, Hgb 9.7 L, Hct 29.2 L, MCV 104.7 H, MCH 34.8 H, MCHC 33.2, RDW Std Deviation 57.3 H, RDW Coeff of Andrew 14.9 H, Plt Count 275, MPV 10.9, Immature Gran % (Auto) 1.000 H, Neut % (Auto) 77.4 H, Lymph % (Auto) 13.8 L, Greer % (Auto) 6.1, Eos % (Auto) 1.5, Baso % (Auto) 0.2, Absolute Neuts (auto) 3.2, Absolute Lymphs (auto) 0.56 L, Nucleated RBC % 0, Differential Comment SCANNED, Diff Path Review January foll 11/17/21 04:35: Sodium 142, Potassium 3.8, Chloride 112 H, Carbon Dioxide 24.0, Anion Gap 6, BUN 37 H, Creatinine 1.54 H, Estim Creat Clear Calc 28.62, Est GFR (MDRD) Af Amer 55 L, Est GFR (MDRD) Non-Af 46 L, BUN/Creatinine Ratio 24.0 H, Glucose 131 H, Calcium 7.8 L, Total Bilirubin 0.70, AST 20, ALT 23, Alkaline Phosphatase 77, Total Protein 5.6 L, Albumin 2.7 L, Globulin 2.9, Albumin/Globulin Ratio 0.9 11/17/21 04:35: Hemoglobin A1c 6.0 H 11/17/21 06:37: POC Glucose 134 H 11/17/21 12:16: POC Glucose 120 H Radiology Impression Foot X-Ray 11/16/21 16:40 IMPRESSION: Soft tissue swelling around the foot. Electronically Signed: López Baez MD at 17:47 EST Reading Location ID and State: [address] [place] [address] , Service support , Assessment & Plan Assessment/Plan (1) Venous insufficiency: PLAN: suspect component of weeping drainage is due to lower extremity swelling. Recommend compression of b/l lower extremity with abdi wraps from toes to knees. he can remove at bedtime. (2) Onychomycosis: PLAN: toenails 1-5 right and 2-5 left debrided in length and thickness. left great toenail has been previously removed. small blister beneath the left 2nd toenail and this was treated with betadine. discussed options for toenail fungus and even discussed sending sample of nail for fungal culture. We discussed topical medication vs lamisil po vs removal. patient elected for debridement (3) Diabetic foot infection: PLAN: discussed diabetic foot infection. suspect this is more related to possible athlete's foot vs dermatitis that has led to bacterial infection. I would continue with vancomycin and zosyn and if condition continues to improve, could possibly send patient home with augmentin and cipro x 10 days. Would have patient follow-up in my clinic in the next 5-7 days. will treat the left foot with lotrisone. spoke with hospitalist and updated plan.
[2021-11-17] MEDS: Clotrimazole/Betamethasone 1 Tube 1 APPLIC TOPICAL (14:45)
[2021-11-17] MEDS: Juven (unflavored) Packet 1 PACKET PO (17:01)
[2021-11-17 17:15] LABS: Bedside Glucose 136 mg/dL (70-110)
--- NOTE | 2021-11-17 17:57 | PCM.PN.HOSP ---
Subjective Subjective Patient was seen and examined today, I discussed his care with Dr. James AQ saw him in consultation for his left foot infection, Dr. James he states that the patient's left foot appears at least partially to have a fungal infection and he feels that continuing the patient's Zosyn and giving an antifungal agent probably would be the best course of care at this time. Talk with the patient today and he stated that earlier today he had some right ankle pain-I have no idea what could be causing the ankle discomfort, the ankle does not appear to be swollen and he has good movement in the right ankle. I have written for Tylenol for the patient for this ankle discomfort if he has it. Objective Data Objective Data Vital Signs: Vital Signs Temp Pulse Resp BP Pulse Ox 98.3 F 66 16 119/53 L 99 11/17/21 14:50 11/17/21 14:50 11/17/21 14:50 11/17/21 14:50 11/17/21 14:50 Oxygen Delivery Method Room Air Weight: 60.328 kg Body Mass Index (BMI) 18.9 Intake & Output: Intake and Output for Last 24 Hours 11/15/21 11/16/21 11/17/21 23:59 23:59 23:59 Intake Total 675.33 / 675.33 1311.67 / 1311.67 Output Total 800 / 800 Balance 675.33 / 675.33 511.67 / 511.67 Medical Nutrition Assessment Dietitian: Malnutrition Criteria Met Start: 11/17/21 12:14 Freq: Status: Active Protocol: Document 11/17/21 12:14 RUDI (Rec: 11/17/21 12:14 [facility] [id number]) Nutrition Malnutrition Evidence of Malnutrition Exists Yes Malnutrition (severe): Acute Illness/Injury Evidenced By Suboptimal Energy Intake ( Severe),Weight Loss (Severe), Physical Changes (Mild) Intake Problem Increased Nutrient Needs (specify) Etiology (protein) related to skin status Signs/Symptoms as evidenced by PI to R buttock and diabetic foot ulcer to L foot. Status Active Problem Clinical Problem Acute Disease or Injury Related Malnutrition Etiology related to acute illness and decreased appetite when had encephalopathy and febrile illness 1 mo ago and not yet able to consume adequate nutrition to meet est nutritional needs Signs/Symptoms related to <50% po intake and 7.1% wt loss x 1 mo, fat/ muscle loss to temporal/ orbital/clavicle/acromion regions. Status Active Problem Recommendation Dietitian Recommendations/Changes Will change diet to 1600 saira Consistent CHO / No added salt Will provide 4 oz glucerna shake w/ meals for increased nutrition if consumed. Will order Ryan bid to help w / skin healing if consumed. Lab / Micro Data Result Diagrams: 11/17/21 04:35 11/17/21 04:35 Labs: Laboratory Results - last 24 hr 11/16/21 17:46: POC Glucose 167 H 11/16/21 18:30: MRSA (PCR) Negative 11/16/21 22:57: POC Glucose 192 H 11/17/21 04:35: WBC 4.1 L, RBC 2.79 L, Hgb 9.7 L, Hct 29.2 L, MCV 104.7 H, MCH 34.8 H, MCHC 33.2, RDW Std Deviation 57.3 H, RDW Coeff of Andrew 14.9 H, Plt Count 275, MPV 10.9, Immature Gran % (Auto) 1.000 H, Neut % (Auto) 77.4 H, Lymph % (Auto) 13.8 L, Moca % (Auto) 6.1, Eos % (Auto) 1.5, Baso % (Auto) 0.2, Absolute Neuts (auto) 3.2, Absolute Lymphs (auto) 0.56 L, Nucleated RBC % 0, Differential Comment SCANNED, Diff Path Review January foll 11/17/21 04:35: Sodium 142, Potassium 3.8, Chloride 112 H, Carbon Dioxide 24.0, Anion Gap 6, BUN 37 H, Creatinine 1.54 H, Estim Creat Clear Calc 28.62, Est GFR (MDRD) Af Amer 55 L, Est GFR (MDRD) Non-Af 46 L, BUN/Creatinine Ratio 24.0 H, Glucose 131 H, Calcium 7.8 L, Total Bilirubin 0.70, AST 20, ALT 23, Alkaline Phosphatase 77, Total Protein 5.6 L, Albumin 2.7 L, Globulin 2.9, Albumin/Globulin Ratio 0.9 11/17/21 04:35: Hemoglobin A1c 6.0 H 11/17/21 06:37: POC Glucose 134 H 11/17/21 12:16: POC Glucose 120 H 11/17/21 16:47: POC Glucose 136 H Physical Exam Const alert, oriented x3, no apparent distress and average body habitus HEENT head/scalp atraumatic and moist oral mucous membranes Head and Scalp: normocephalic Eyes PERRL and EOMs intact bilaterally Neck no lymphadenopathy, supple and no JVD Resp normal respiratory effort, no use of accessory muscles and clear to auscultation bilaterally Cardio regular rate, regular rhythm, S1 normal heart sound, S2 normal heart sound, no gallops and no clicks GI normal to inspection, nondistended, normoactive bowel sounds, soft to palpation, non-tender and non-distended Extremity Extremity Narrative: The dorsal area of the left foot appears to be reddened with evidence of dry skin over the patient's toes. This area does not appear to be tender at this time Skin no wounds, skin turgor normal and no mottling Neuro oriented x3, CN's II-XII intact bilaterally and no sensory deficits noted Sensorium / Orientation: awake Speech: speech normal Psych affect normal Assessment & Plan Assessment/Plan (1) Onychomycosis: PLAN: 1. Cellulitis of the left foot-continue Zosyn, I will stop the patient's vancomycin, patient will be placed on Diflucan due to concerns of fungal infection of the left foot-this will be given orally. Podiatry is continuing to see the patient. It was recommended that the patient be sent home on oral Cipro and Augmentin for continued outpatient treatment at the time of discharge from the hospital. #2 coronary artery disease-this appears to be stable at this time, patient will continue on his home medications #3 essential hypertension-continue home medications at this time #4 hyperlipidemia-patient is on a statin #5 type 2 diabetes-patient's blood sugars will continue to be monitored, sliding scale insulin will be given as needed, patient's hemoglobin A1c was 6, I do not believe I need to add any medications at this time for the patient's type 2 diabetes. #6 chronic anemia-type unknown, CBC will be monitored #7 stage IIIa chronic kidney disease-secondary to nephrosclerosis and type 2 diabetes-labs will be monitored, no treatment is necessary at this time #8 mycosis of the skin of the left foot-again patient will be placed on Diflucan orally Charges/Coding Visit Charges Inpatient E&M: 92809 Subs Hosp L2
[2021-11-17] MEDS: Fluconazole 100 MG Tablet 200 MG PO (18:04)
[2021-11-17] MEDS: Menthol/Lanolin/Calamine/Znox 113 GM Tube 1 APPLIC TOPICAL (22:52)
[2021-11-17] MEDS: Tamsulosin HCl 0.4 MG Capsule PO (22:52)
[2021-11-17] MEDS: Aspirin 81 MG TAB.CHEW PO (22:53)
[2021-11-17] MEDS: Atorvastatin Calcium 20 MG Tablet PO (22:54)
[2021-11-17 23:32] LABS: Bedside Glucose 114 mg/dL (70-110)
[2021-11-18] MEDS: Acetaminophen 325 MG Tablet 650 MG PO ×3 (00:48→12:46)
[2021-11-18 03:49] VITALS: BP 118/45; PULSE 60; RESP 18; TEMP 36.5; O2SAT 97
[2021-11-18] MEDS: 0.9% Saline Lock 10 ML Syringe IV (03:56)
[2021-11-18 07:01] LABS: Bedside Glucose 104 mg/dL (70-110)
--- NOTE | 2021-11-18 07:11 | PN.SURG_ITS ---
Subjective Subjective Patient is seen at bedside this morning. He denies any pain. He denies any n/v/f/c. Objective Data Objective Data Vital Signs: Vital Signs Temp Pulse Resp BP Pulse Ox 97.7 F L 60 18 118/45 L 97 11/18/21 03:49 11/18/21 03:49 11/18/21 03:49 11/18/21 03:49 11/18/21 03:49 Oxygen Delivery Method Room Air Weight: 60 kg Body Mass Index (BMI) 18.9 Intake & Output: Intake and Output for Last 24 Hours 11/16/21 11/17/21 11/18/21 23:59 23:59 23:59 Intake Total 675.33 / 675.33 1661.67 / 1661.67 50 / 50 Output Total 1000 / 1000 Balance 675.33 / 675.33 661.67 / 661.67 50 / 50 Medical Nutrition Assessment Dietitian: Malnutrition Criteria Met Start: 11/17/21 12:14 Freq: Status: Active Protocol: Document 11/17/21 12:14 RUDI (Rec: 11/17/21 12:14 [facility] [id number]) Nutrition Malnutrition Evidence of Malnutrition Exists Yes Malnutrition (severe): Acute Illness/Injury Evidenced By Suboptimal Energy Intake ( Severe),Weight Loss (Severe), Physical Changes (Mild) Intake Problem Increased Nutrient Needs (specify) Etiology (protein) related to skin status Signs/Symptoms as evidenced by PI to R buttock and diabetic foot ulcer to L foot. Status Active Problem Clinical Problem Acute Disease or Injury Related Malnutrition Etiology related to acute illness and decreased appetite when had encephalopathy and febrile illness 1 mo ago and not yet able to consume adequate nutrition to meet est nutritional needs Signs/Symptoms related to <50% po intake and 7.1% wt loss x 1 mo, fat/ muscle loss to temporal/ orbital/clavicle/acromion regions. Status Active Problem Recommendation Dietitian Recommendations/Changes Will change diet to 1600 saira Consistent CHO / No added salt Will provide 4 oz glucerna shake w/ meals for increased nutrition if consumed. Will order Ryan bid to help w / skin healing if consumed. Lab / Micro Data Result Diagrams: 11/17/21 04:35 11/17/21 04:35 Labs: Laboratory Results - last 24 hr 11/17/21 04:35: Hemoglobin A1c 6.0 H 11/17/21 12:16: POC Glucose 120 H 11/17/21 16:47: POC Glucose 136 H 11/17/21 22:57: POC Glucose 114 H 11/18/21 06:53: POC Glucose 104 Physical Exam Narrative This patient is alert and orientated x 3. he does not appear in any distress Left foot has resolving erythema. there is improved appearance of the left foot with less scaling noted. no evidence of open sores. no fluctuance. no pain to palpation of left foot. Left foot shows improvement since yesterday no signs of cellulitis or open sores to right foot. previously documented pain of right ankle not present on exam today. Assessment & Plan Assessment/Plan (1) Diabetic foot infection: PLAN: patient left foot infection appears to be improving. I feel the infection is likely caused by tinea pedis secondarily infected by bacterial infection. patient improving on zosyn. I will have him continue with this while in the hospital. Would discharge patient on cipro and augmentin. I want patient to continue with lotrisone to left foot daily and use of abdi wraps for compression. patient ok to ambulate on left foot with walker/assistance. he will follow-up in my clinic within one week following discharge.
[2021-11-18] MEDS: Juven (unflavored) Packet 1 PACKET PO (07:42)
[2021-11-18 07:44] VITALS: BP 117/50; PULSE 65; RESP 18; TEMP 36.9; O2SAT 97
[2021-11-18 08:01] VITALS: BP 117/50; PULSE 65; RESP 18; TEMP 36.9; O2SAT 97
[2021-11-18] MEDS: Ramipril 10 MG Capsule PO (09:26)
[2021-11-18 09:28] VITALS: BP 118/48; PULSE 66
[2021-11-18] MEDS: Metoprolol Tartrate 25 MG Tablet PO (09:28)
[2021-11-18] MEDS: Fluconazole 100 MG Tablet 200 MG PO (09:40)
[2021-11-18] MEDS: Heparin Injection (Vial) 5,000 UNIT/ML VIAL 5000 UNIT SC (09:41)
[2021-11-18] MEDS: Hydroxyurea 500 MG Capsule PO (09:44)
[2021-11-18] MEDS: Pyridoxine HCl 100 MG Tablet PO (09:46)
--- NOTE | 2021-11-18 10:19 | CASEMGMT ---
RN CM in to pt room. Pt lying in bed in no distress but states he would like another tylenol. Discussed with pt plan to go home and resume HHC and add SN for monitoring of feet and education. Pt agreeable to this plan. Pt dtr then walked into the room. She is also agreeable to the plan. Notified Anika at [facility] to add SN. Pt/dtr deny further needs. Made pt nurse aware of his request for tylenol.
[2021-11-18] MEDS: Clotrimazole/Betamethasone 1 Tube 1 APPLIC TOPICAL (10:36)
[2021-11-18] MEDS: Menthol/Lanolin/Calamine/Znox 113 GM Tube 1 APPLIC TOPICAL (10:36)
[2021-11-18 11:41] LABS: Bedside Glucose 133 mg/dL (70-110)
[2021-11-18 14:08] VITALS: BP 127/64; PULSE 65; RESP 16; TEMP 36.6; O2SAT 98
[2021-11-18 14:36] VITALS: O2SAT 96
--- NOTE | 2021-11-18 15:52 | PCM.DC ---
Discharge Instructions Diet Discharge Diet: 1800 Calorie Control Diet Activity Discharge Activity: Return to Normal Activity Weight Bearing Status: Weight bearing as tolerated Follow Up Care Test Results: Test results from this visit will be discussed in further detail at your follow-up appointment, if applicable. Discharge Plan Admission Admit Date/Time: 11/16/21 16:57 Primary Reason for Your Visit: left foot cellulitis Attending Provider: Hemal Valdez Primary Care Provider: Gabriel Mares Consulting Providers: Emerson Phan Instructions Additional Instructions / Restrictions: continue WILBERT wraps to legs Discharge Orders/Prescriptions Prescriptions: New clotrimazole-betamethasone 1-0.05 % Cream 1 applic topical DAILY Qty: 15 RF: 0 ciprofloxacin HCl 500 mg tablet 500 mg PO BID Qty: 14 RF: 0 amoxicillin-pot clavulanate [Augmentin] 500-125 mg tablet 1 tab PO TID Qty: 21 RF: 0 potassium chloride 10 mEq tablet extended release 20 meq PO DAILY Qty: 60 RF: 0 Continued bevacizumab 25 mg/mL intravenous solution 25 mg/mL solution 1.25 mg INTRAVIT .COMPLEX RF: 0 hydroxyurea [Hydrea] 500 mg capsule 500 mg PO MOTUWETHFR RF: 0 atorvastatin 20 MG tablet 20 mg PO QHS RF: 0 aspirin 81 MG tablet,chewable 81 mg PO QHS RF: 0 ramipril 5 MG capsule 10 mg PO DAILY RF: 0 tamsulosin 0.4 mg capsule 0.4 mg PO QHS RF: 0 chlorthalidone 25 mg Tablet 25 mg PO DAILY RF: 0 pyridoxine (vitamin B6) [Vitamin B-6] 100 mg Tablet 100 mg PO DAILY RF: 0 metoprolol tartrate 25 mg tablet 25 mg PO BID RF: 0 Referrals / Follow Up: Emerson Phan DPM [STAFF PHYSICIAN] - Within 1 Week Gabriel Mares MD [Primary Care Provider] - Within 2 Weeks Disposition Disposition (needs filled in before D/C Order can be placed): Home Health Service
--- NOTE | 2021-11-18 16:05 | DS.PCM_ITS ---
Providers Date of Admission: 11/16/21 Date of Discharge: 11/18/21 Primary Care Physician: Dr. Gabriel Mares MD Consultations 11/16/21 17:07 Consult: Podiatry Routine Consulting Provider: Emerson Phan Reason for Consult: Diabetic L foot infection EMERGENT Consult: No MD Notified: Yes Date Notified: 11/16/21 Time Notified: 17:03 Method of Notification: called Reason For Visit: DIABETIC FOOT INFECTION Diagnosis Discharge Diagnosis (1) Diabetic foot infection: Status: Acute Code(s): E11.628 - Type 2 diabetes mellitus with other skin complications; L08.9 - Local infection of the skin and subcutaneous tissue, unspecified Plan: Final diagnosis: #1 cellulitis of the left foot with type 2 diabetes contributing to etiology #2 coronary artery disease #3 essential hypertension #4 hyperlipidemia #5 type 2 diabetes #6 chronic anemia-etiology unclear #7 stage IIIa chronic kidney disease secondary to type 2 diabetes and nephro sclerosis #8 mycosis of the skin on the left foot Medications at Discharge Home Medications aspirin 81 mg PO QHS 04/02/16 atorvastatin 20 mg PO QHS 04/02/16 ramipril 10 mg PO DAILY 04/02/16 bevacizumab 25 mg/mL intravenous solution 1.25 mg INTRAVIT .COMPLEX 12/08/17 hydroxyurea 500 mg capsule 500 mg PO MOTUWETHFR 12/08/17 tamsulosin 0.4 mg PO QHS 10/19/21 chlorthalidone 25 mg PO DAILY 11/16/21 metoprolol tartrate 25 mg PO BID 11/16/21 pyridoxine (vitamin B6) [Vitamin B-6] 100 mg PO DAILY 11/16/21 amoxicillin-pot clavulanate [Augmentin] 1 tab PO TID #21 tab 11/18/21 ciprofloxacin HCl 500 mg PO BID #14 tab 11/18/21 clotrimazole-betamethasone 1 applic TOPICAL DAILY #15 g 11/18/21 potassium chloride 20 meq PO DAILY #60 tab 11/18/21 Hospital Course Operations None Procedures None Summary of Care Provided Minutes Spent on Discharge: 33 Hospital Course: This 86-year-old white male was seen in the emergency room at [facility] with complaint of left foot redness and drainage according to his daughter. Patient denied any fevers or chills, work-up in the emergency room included a CBC which was normal, chemistry profile showed elevated creatinine 1.64 and an elevated glucose of 174. Patient's lactic acid was normal. Examination of the left foot revealed redness and slight swelling over the dorsum of the left foot involving the toes. Patient was admitted to [place] [address] with a diagnosis of cellulitis associated with type 2 diabetes, he was put on IV antibiotics and seen by podiatry (Dr. Phan), podiatry did not feel the patient had a primary cellulitis, he felt that there was a cellulitis associated also with mycosis of the skin of the left foot. Patient was placed on antifungal cream also. On 11/18/2021, patient was seen and examined: On examination he appeared in good health and spirits. Vital signs as documented. Skin-there was some redness noted over the dorsum of the left foot distally involving the toes also, there was no appreciable edema noted and there was no discharge noted from the area.. Neck without JVD, neck was supple, trachea midline, thyroid was normal. Lungs clear bilaterally, normal air movement was noted. Heart exam notable for regular rhythm, normal sounds and absence of murmurs, rubs or gallops. Abdomen unremarkable and without evidence of organomegaly, masses, or abdominal aortic enlargement. Bowel sounds are present, abdomen is not distended. Extremities nonedematous, no cyanosis was noted, no clubbing was noted. Again there was redness and dry skin over the distal area of the dorsum of the left foot. Neuro: Cranial nerves II through XII are grossly intact, no focal motor deficits were noted, sensation to light touch and pinprick intact, motor exam 5/5 throughout. Psych: Patient is alert and oriented x3, he does not appear anxious or depressed, he does not appear agitated. On 11/18/2021, patient appears stable for discharge home, he was to follow-up with podiatry as an outpatient. Medical Records Data Medical Nutrition Assessment Dietitian: Malnutrition Criteria Met Start: 11/17/21 12:14 Freq: Status: Active Protocol: Document 11/17/21 12:14 [facility] (Rec: 11/17/21 12:14 [facility] [id number]) Nutrition Malnutrition Evidence of Malnutrition Exists Yes Malnutrition (severe): Acute Illness/Injury Evidenced By Suboptimal Energy Intake ( Severe),Weight Loss (Severe), Physical Changes (Mild) Intake Problem Increased Nutrient Needs (specify) Etiology (protein) related to skin status Signs/Symptoms as evidenced by PI to R buttock and diabetic foot ulcer to L foot. Status Active Problem Clinical Problem Acute Disease or Injury Related Malnutrition Etiology related to acute illness and decreased appetite when had encephalopathy and febrile illness 1 mo ago and not yet able to consume adequate nutrition to meet est nutritional needs Signs/Symptoms related to <50% po intake and 7.1% wt loss x 1 mo, fat/ muscle loss to temporal/ orbital/clavicle/acromion regions. Status Active Problem Recommendation Dietitian Recommendations/Changes Will change diet to 1600 saira Consistent CHO / No added salt Will provide 4 oz glucerna shake w/ meals for increased nutrition if consumed. Will order Ryan bid to help w / skin healing if consumed. Weight / BMI Weight Weight: 60 kg Body Mass Index (BMI) 18.9 ABG / Lab / Microbiology Data Result Diagrams: 11/17/21 04:35 11/17/21 04:35 Laboratory: Laboratory Results - last 24 hr 11/17/21 16:47: POC Glucose 136 H 11/17/21 22:57: POC Glucose 114 H 11/18/21 06:53: POC Glucose 104 11/18/21 11:23: POC Glucose 133 H D/C Instructions Discharge Diet: 1800 Calorie Control Diet Weight Bearing Status: Weight bearing as tolerated Meaningful Use Info Meaningful Use Diagnoses (Choose all that apply): None applicable Discharge Plan Admission Admit Date/Time: 11/16/21 16:57 Primary Reason for Your Visit: left foot cellulitis Attending Provider: Hemal Valdez Primary Care Provider: Gabriel Mares Consulting Providers: Emerson Phan Instructions Additional Instructions / Restrictions: continue WILBERT wraps to legs Discharge Orders/Prescriptions Prescriptions: New clotrimazole-betamethasone 1-0.05 % Cream 1 applic topical DAILY Qty: 15 RF: 0 ciprofloxacin HCl 500 mg tablet 500 mg PO BID Qty: 14 RF: 0 amoxicillin-pot clavulanate [Augmentin] 500-125 mg tablet 1 tab PO TID Qty: 21 RF: 0 potassium chloride 10 mEq tablet extended release 20 meq PO DAILY Qty: 60 RF: 0 Continued bevacizumab 25 mg/mL intravenous solution 25 mg/mL solution 1.25 mg INTRAVIT .COMPLEX RF: 0 hydroxyurea [Hydrea] 500 mg capsule 500 mg PO MOTUWETHFR RF: 0 atorvastatin 20 MG tablet 20 mg PO QHS RF: 0 aspirin 81 MG tablet,chewable 81 mg PO QHS RF: 0 ramipril 5 MG capsule 10 mg PO DAILY RF: 0 tamsulosin 0.4 mg capsule 0.4 mg PO QHS RF: 0 chlorthalidone 25 mg Tablet 25 mg PO DAILY RF: 0 pyridoxine (vitamin B6) [Vitamin B-6] 100 mg Tablet 100 mg PO DAILY RF: 0 metoprolol tartrate 25 mg tablet 25 mg PO BID RF: 0 Referrals / Follow Up: Emerson Phan DPM [STAFF PHYSICIAN] - Within 1 Week Gabriel Mares MD [Primary Care Provider] - Within 2 Weeks Disposition Disposition (needs filled in before D/C Order can be placed): Home Health Service Charges/Coding Visit Charges Inpatient E&M: 52564 Disch Hosp
[2021-11-19 14:22] LABS: Pathologist Review Reviewed
== END 2021-11-18 17:20 | disposition home health service (06) | DRG 637 ==
LOC: ED 16:26 → MS3 17:08
PROVIDERS: Admitting Provider Family Medicine; Emergency Provider Emergency Medicine; PCP Internal Medicine; Visit Provider Internal Medicine
DX: E11.628 Type 2 diabetes mellitus with other skin complications (principal); E43 Unspecified severe protein-calorie malnutrition; L03.116 Cellulitis of left lower limb; D63.1 Anemia in chronic kidney disease; B35.1 Tinea unguium; E11.22 Type 2 diabetes mellitus with diabetic chronic kidney disease; E11.59 Type 2 diabetes mellitus with other circulatory complications; N18.31 Chronic kidney disease, stage 3a; B36.9 Superficial mycosis, unspecified; E78.5 Hyperlipidemia, unspecified; I25.10 Atherosclerotic heart disease of native coronary artery without angina pectoris; I12.9 Hypertensive chronic kidney disease with stage 1 through stage 4 chronic kidney disease, or unspecified chronic kidney disease; I25.5 Ischemic cardiomyopathy; I87.2 Venous insufficiency (chronic) (peripheral); N40.0 Benign prostatic hyperplasia without lower urinary tract symptoms; Z87.891 Personal history of nicotine dependence; Z98.2 Presence of cerebrospinal fluid drainage device; Z86.73 Personal history of transient ischemic attack (TIA), and cerebral infarction without residual deficits; Z79.82 Long term (current) use of aspirin; Z66 Do not resuscitate; Z95.1 Presence of aortocoronary bypass graft
CPT/HCPCS: 36415; 73630; 80053; 82962; 83036; 83605; 83735; 85025; 85027; 87040; 87641; 97802; 99251; 99284; J7030; J7040; A4216; G0463; J0295

== ENCOUNTER → 2022-01-15 | Outpatient (REF) | payer MEDICARE, SELFPAY ==
[2022-01-15 08:55] LABS: Anion Gap 4 (5-15); BUN 27 mg/dL (7-18); BUN/Creat Ratio 19.1 RATIO (10-20); Calcium,Total 8.4 mg/dL (8.5-10.1); Chloride 110 mmol/L (98-107); Creatinine, Serum 1.41 mg/dL (0.70-1.30); EST Glomerular Filtration Rate 51 mL/min (>60); Est Glom Filt Rate - Afr Amer 61 mL/min (>60); Glucose 107 mg/dL (74-106); Potassium 4.1 mmol/L (3.5-5.1); Sodium Level 139 mmol/L (136-145)
== END | disposition home or self-care (01) ==
LOC: OLS.DANBUR 05:00
PROVIDERS: PCP Internal Medicine; Referring Provider Internal Medicine; Visit Provider Internal Medicine
DX: I10 Essential (primary) hypertension (principal)
CPT/HCPCS: 36415; 80048

== ENCOUNTER → 2022-03-31 08:15 | Outpatient (REF) | payer MEDICARE, SELFPAY ==
[2022-03-31 09:32] LABS: Absolute Lymphocyte Count 0.63 X10^3/uL (0.83-4.51); Absolute Neutrophil Count 2.9 X10^3/uL (2.0-7.7); Basophil# 0.01 X10^3/uL; Basophil% 0.3 % (0-1); Eosinophil# 0.02 X10^3/uL; Eosinophils% 0.5 % (0-5); Hematocrit 33.1 % (40-54); Hemoglobin 10.8 g/dL (13.0-16.5); Lymphocyte # 0.63 X10^3/ul (0.83-4.51); Lymphocyte % 16.6 % (19-41); Mean Corp Hgb Conc 32.6 g/dL (32-36); Mean Corpuscular Hgb 34.5 pg (27.0-32.0); Mean Corpuscular Volume 105.8 fL (80-94); Monocyte# 0.19 X10^3/uL; NRBC Flagged by Analyzer 0 % (0-5); Neutrophil # 2.91 X10^3/uL (2.7-7.7); Neutrophil % 76.5 % (47-70); Platelet Count 265 K/mm3 (150-450); RBC Distribution Width CV 14.9 % (11.6-14.6); RBC Distribution Width SD 57.2 fl (35.1-43.9); Red Blood Count 3.13 M/mm3 (4.6-6.2); White Blood Count 3.8 K/mm3 (4.4-11.0)
== END ==
LOC: OLS.DANBUR 08:15
PROVIDERS: PCP Internal Medicine; Visit Provider Internal Medicine Hematology & Oncology
DX: I10 Essential (primary) hypertension (principal); E11.9 Type 2 diabetes mellitus without complications; E78.5 Hyperlipidemia, unspecified; N40.2 Nodular prostate without lower urinary tract symptoms
CPT/HCPCS: 36415; 85025

== ENCOUNTER → 2022-04-02 05:00 | Outpatient (REF) | payer MEDICARE, SELFPAY ==
[2022-04-02 11:24] LABS: Hematocrit 35.6 % (40-54); Hemoglobin 11.7 g/dL (13.0-16.5); Mean Corp Hgb Conc 32.9 g/dL (32-36); Mean Corpuscular Hgb 34.5 pg (27.0-32.0); Mean Platelet Vol. 10.8 fl (6.2-12.0); Platelet Count 283 K/mm3 (150-450); RBC Distribution Width SD 58.6 fl (35.1-43.9); Red Blood Count 3.39 M/mm3 (4.6-6.2)
== END ==
LOC: OLS.DANBUR 05:00
PROVIDERS: PCP Internal Medicine; Visit Provider Internal Medicine
DX: D75.839 Thrombocytosis, unspecified (principal)
CPT/HCPCS: 36415; 85027

== ENCOUNTER → 2022-04-30 | Outpatient (REF) | payer MEDICARE, SELFPAY ==
[2022-04-30 08:56] LABS: Absolute Lymphocyte Count 0.78 X10^3/uL (0.83-4.51); Absolute Neutrophil Count 2.9 X10^3/uL (2.0-7.7); Basophil# 0.02 X10^3/uL; Basophil% 0.5 % (0-1); Eosinophil# 0.05 X10^3/uL; Eosinophils% 1.2 % (0-5); Hematocrit 32.1 % (40-54); Hemoglobin 10.8 g/dL (13.0-16.5); Lymphocyte # 0.78 X10^3/ul (0.83-4.51); Lymphocyte % 19.3 % (19-41); Mean Corp Hgb Conc 33.6 g/dL (32-36); Mean Corpuscular Volume 103.9 fL (80-94); Mean Platelet Vol. 10.8 fl (6.2-12.0); Monocyte# 0.27 X10^3/uL; Monocyte% 6.7 % (0-10); NRBC Flagged by Analyzer 0 % (0-5); Neutrophil # 2.88 X10^3/uL (2.7-7.7); Neutrophil % 71.3 % (47-70); Platelet Count 306 K/mm3 (150-450); RBC Distribution Width CV 14.6 % (11.6-14.6); RBC Distribution Width SD 55.9 fl (35.1-43.9); Red Blood Count 3.09 M/mm3 (4.6-6.2)
== END ==
LOC: OLS.DANBUR 05:00
PROVIDERS: PCP Internal Medicine; Visit Provider Internal Medicine
DX: I10 Essential (primary) hypertension (principal); E11.9 Type 2 diabetes mellitus without complications; E78.5 Hyperlipidemia, unspecified
CPT/HCPCS: 36415; 85025

== ENCOUNTER 2022-05-29 19:41 | Emergency (ER) | payer MEDICARE, SELFPAY ==
[2022-05-29 19:42] VITALS: BP 149/62; PULSE 89; RESP 16; TEMP 36.6; O2SAT 97; BMI 23.1
--- NOTE | 2022-05-29 19:59 | CT_ITS ---
STUDY: CT BRAIN WITHOUT CONTRAST REASON FOR EXAM: Male, 86 years old. Head trauma with altered mental status RADIATION DOSAGE (If Supplied By Facility): CTDIvol = ( 44.99 ) mGy, DLP = ( 863.60 ) mGycm TECHNIQUE: Transaxial CT imaging of the brain was performed without administration of intravenous contrast material. Individualized dose optimization techniques were used for this CT. COMPARISON: 10/19/2021 FINDINGS: Normal soft tissue structures. Normal calvarium. There is moderate cerebral atrophy with widening of the extra-axial spaces and ventricular dilatation. There are areas of decreased attenuation within the white matter tracts of the supratentorial brain, consistent with microvascular disease changes. 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 Normal brainstem. Normal cerebellum. There is no intracranial hemorrhage. There are no findings of an acute ischemic infarction. Normal visualized paranasal sinuses. CT/Brain/Head without Contrast IMPRESSION: Chronic involutional changes of the brain. Electronically Signed: Danny Mckee MD at 21:34 EDT ,
--- NOTE | 2022-05-29 20:00 | EDS_ITS ---
HPI HPI - Fall History of Present Illness Chief Complaint: Fall Detail of Chief Complaint: Head trauma status post fall at [facility] Informant: patient, EMS and SNF Occured/Mechanism Occurred: Today Mechanism/Context: Yes same level fall Narrative: Unknown Usually ambulates: Without assistance Pain/Injury Location: Vertex of scalp Pain Location: none Current Severity: Denies Maximum Severity: Denies Worsened by: Nothing Relieved by: Nothing Associated Symptoms Length of loss of consciousness: Unknown Narrative Narrative: Patient believes he tripped. Patient not a good informant. He is not oriented. There is no history of dementia. He denies headache. He denies trouble with vision. He denies numbness or tingling his arms or legs. He denies neck pain. He denies chest pain. Tetanus Immunization: Unknown Prior similar symptoms: No Recent Illness/Hospitalization: No PFSH PFSH Medical History Atherosclerotic heart disease of [place] coronary artery without angina pectoris Community acquired pneumonia Coronary artery disease Diabetes Diabetic foot infection Essential thrombocytosis Former smoker HLD (hyperlipidemia) HTN (hypertension) Hydrocephalus Ischemic cardiomyopathy Kidney stones Lung mass Mass of lower lobe of left lung Myocardial infarct Normal pressure hydrocephalus Type II diabetes mellitus Home Medications aspirin 81 mg chewable tablet 81 mg PO QHS heart health 04/02/16 [History Last Taken 10/18/21] atorvastatin 20 mg tablet 20 mg PO QHS choleterol 04/02/16 [History Last Taken 10/18/21] ramipril 5 mg capsule 10 mg PO DAILY blood pressure 04/02/16 [History Last Taken 10/19/21] bevacizumab 25 mg/mL intravenous solution (Avastin) 1.25 mg intravitreal .COMPLEX Check with primary doctor 12/08/17 [History Last Taken 10/09/21] hydroxyurea 500 mg capsule (Hydrea) 500 mg PO MOTUWETHFR Check with primary doctor 12/08/17 [History Last Taken 10/17/21] tamsulosin 0.4 mg capsule 0.4 mg PO QHS bladder 10/19/21 [History Last Taken 10/18/21] chlorthalidone 25 mg tablet 25 mg PO DAILY Check with primary doctor 11/16/21 [History Last Taken Unknown] metoprolol tartrate 25 mg tablet 25 mg PO BID Check with primary doctor 11/16/21 [History Last Taken Unknown] pyridoxine (vitamin B6) 100 mg tablet (Vitamin B-6) 100 mg PO DAILY Check with primary doctor 11/16/21 [History Last Taken Unknown] amoxicillin 500 mg-potassium clavulanate 125 mg tablet (Augmentin) 1 tab PO TID #21 tabs 11/18/21 [Rx Last Taken Unknown] ciprofloxacin HCl 500 mg tablet 500 mg PO BID #14 tabs 11/18/21 [Rx Last Taken Unknown] clotrimazole-betamethasone 1 %-0.05 % topical cream 1 applic topical DAILY #15 grams 11/18/21 [Rx Last Taken Unknown] potassium chloride 10 mEq tablet,extended release 20 meq PO DAILY #60 tabs 11/18/21 [Rx Last Taken Unknown] Allergy/AdvReac Type Severity Reaction Status Date / Time No Known Allergies Allergy Verified 10/19/21 15:23 Family History Father CAD (coronary artery disease) Myocardial infarction Mother , age 80+, cause not listed No problems noted. Surgical History History of bronchoscopy History of left heart catheterization S/P CABG x 3 Social History household members: spouse Smoking Status: Former smoker quit date: 09/20/84 pack-years: 20 how long ago did patient quit smoking: Quit ~ 50 years prior, 1 ppd since teen until quit. alcohol intake: never substance use type: does not use ROS ROS ED Review of Systems ROS Unobtainable: due to mental status Constitutional Constitutional ED: Denies chills or fever(s) Eyes Eyes: Denies blurry vision, change in vision or diplopia ENT ENT ED: Denies rhinorrhea Cardiovascular Cardiovascular: Denies chest pain Respiratory/Chest Respiratory/Chest: Denies cough or dyspnea Gastrointestinal Gastrointestinal: Denies abdominal pain, diarrhea or vomiting Genitourinary Genitourinary ED: Denies dysuria, hematuria or urinary frequency Musculoskeletal Musculoskeletal: Denies arthralgias, back pain, myalgias or neck pain Integumentary Denies abscess, Abrasions or rash Neurologic Neurologic: Reports headache(s); Denies paresthesias or weakness Psychiatric Psychiatric: Denies anxiety or depression Endocrine Endocrinology: Denies polydipsia, polyphagia or polyuria Hematologic/Lymphatic Hematologic/Lymphatic: Denies easy bleeding, easy bruising or lymphadenopathy Allergic/Immunologic Allergic/Immunologic ED: Denies mouth swelling or tongue swelling EXAM Physical Exam Const Vital Signs: 05/29/22 19:42 05/29/22 20:19 05/29/22 21:02 Temperature 97.8 F Temperature Source Temporal Pulse Rate 89 78 Respiratory Rate 16 20 H Respiratory Effort Normal Blood Pressure 149/62 H 137/53 H Blood Pressure Mean 91 81 Pulse Ox 97 98 Oxygen Delivery Method Room Air Room Air Room Air Oxygen Flow Rate (L/min) 97 Positive well nourished and well developed; Negative for cachectic, contractures or unkempt General Appearance ED: well developed and NAD; Negative for unkempt, cachectic or contractures Nutritional Appearance: Negative for cachectic HEENT Reports normocephalic and TM's normal bilaterally HEENT Narrative: There is an abrasion at the forehead at hairline and a laceration vertex of the scalp. This is Y-shaped. There is no palpable depression. There is no clinical signs of basilar skull fracture. There is no septal deviation hematoma noted. trauma Eyes PERRL and EOMs intact bilaterally Eyes Narrative: There is no subconjunctival hemorrhage. General Eye ED: Negative for pale conjunctiva or scleral icterus Neck full ROM, no lymphadenopathy and supple Neck Narrative: Nontender Chest Wall inspection of chest normal and palpation of chest normal Resp normal respiratory effort, no retractions and clear to auscultation bilaterally Cardio regular rate, regular rhythm, S1 normal heart sound, S2 normal heart sound and no murmurs GI non-tender, non-distended and no masses Auscultation: normoactive bowel sounds Palpation: soft Back/Spine General Back: CVA tenderness Cervical Spine: Negative for cervical spine tenderness Neuro No oriented x3, CN's II-XII intact bilaterally, moves all extremities, no focal motor deficits and no sensory deficits noted Tresa Coma Scale: document GCS findings Spontaneous Obeys Commands Confused 14 Sensorium / Orientation: Negative for alert Psych mental status grossly normal and thought process normal Appearance: Negative for unkempt Skin Lesions: no lesions Rashes: no rashes Trauma: laceration MDM MDM MDM Narrative Medical decision making narrative: With change in mental status no history of dementia head trauma obtain CT to rule out subdural, epidural, traumatic subarachnoid or intraparenchymal contusion. Tetanus was updated. Laceration will require repair. Lab Data Attestation: I reviewed the patient's lab results. Lab results narrative: Patient has mild anemia with MCV of 102. Creatinine is slightly elevated 1.58 with a GFR 44. Glucose is elevated 166. Labs: Laboratory Results - last 24 hr 05/29/22 05/29/22 05/29/22 20:04 20:15 20:15 WBC 5.6 RBC 3.01 L Hgb 9.6 L Hct 30.7 L MCV 102.0 H MCH 31.9 MCHC 31.3 L RDW Std Deviation 56.4 H RDW Coeff of Andrew 15.2 H Plt Count 446 MPV 10.4 Neut % (Auto) Not Reportable Absolute Neuts (auto) 4.7 Absolute Lymphs (auto) 0.50 L Total Counted 100 Neutrophils % (Manual) 84 H Lymphocytes % (Manual) 9 L Monocytes % (Manual) 3 Eosinophils % (Manual) 2 Myelocytes % 2 H Diff Path Review N/A Hypersegmented Neuts 5.6 Toxic Granulation 2+ Polychromasia 1+ Basophilic Stippling 1+ Macrocytosis 2+ Sodium 139 Potassium 4.6 Chloride 108 H Carbon Dioxide 27.0 Anion Gap 4 L BUN 22 H Creatinine 1.58 H Estim Creat Clear Calc 29.72 Est GFR (MDRD) Af Amer 54 L Est GFR (MDRD) Non-Af 44 L BUN/Creatinine Ratio 13.9 Glucose 166 H Calcium 8.7 POC Glucose 168 H Radiography Diagnostic Testing: Clinical Impression(s) from Imaging Studies Brain CT 05/29/22 19:59 IMPRESSION: Chronic involutional changes of the brain. Electronically Signed: Danny Mckee MD at 21:34 EDT , Procedures Other Procedures Procedure(s): Up laceration that is linear and 3.0 cm in length. It is not Y- shaped. Patient was anesthetized by local infiltration with 1% lidocaine. Wound was irrigated with 50 cc of normal saline. 7 simple interrupted sutures was placed using 5-0 Ethilon. Patient tolerated procedure without difficulty. Discharge Plan Triage Chief Complaint: Fall ED Provider: Sarath Schneider Dx/Rx/DC Orders Clinical Impression: Concussion with brief LOC, Laceration of scalp Instructions: ED Head Injury (Adult), ED Laceration Scalp Stitches or [place] Prescriptions: No Action bevacizumab 25 mg/mL intravenous solution 25 mg/mL solution 1.25 mg INTRAVIT .COMPLEX Label Comments: 1.25 mg INTRAVIT injected in both eyes every 3 months by opthalmologist Rx Instructions: 1.25 mg INTRAVIT injected in both eyes every 3 months by opthalmologist hydroxyurea [Hydrea] 500 mg capsule 500 mg PO MOTUWETHFR Label Comments: 500 mg PO 1 tablet by mouth 5 days per week Rx Instructions: 500 mg PO 1 tablet by mouth 5 days per week atorvastatin 20 MG tablet 20 mg PO QHS Label Comments: cholesterol lowering aspirin 81 MG tablet,chewable 81 mg PO QHS Label Comments: heart health ramipril 5 MG capsule 10 mg PO DAILY Label Comments: blood pressure tamsulosin 0.4 mg capsule 0.4 mg PO QHS chlorthalidone 25 mg Tablet 25 mg PO DAILY pyridoxine (vitamin B6) [Vitamin B-6] 100 mg Tablet 100 mg PO DAILY metoprolol tartrate 25 mg tablet 25 mg PO BID clotrimazole-betamethasone 1-0.05 % Cream 1 applic topical DAILY Qty: 15 0RF Protocol: *Topical Application Instructions APPLICATION INSTRUCTIONS: apply to L foot, do not apply in between toes Rx Instructions: apply to affected left foot area twice daily ciprofloxacin HCl 500 mg tablet 500 mg PO BID Qty: 14 0RF amoxicillin-pot clavulanate [Augmentin] 500-125 mg tablet 1 tab PO TID Qty: 21 0RF Rx Instructions: take with food potassium chloride 10 mEq tablet extended release 20 meq PO DAILY Qty: 60 0RF Primary Care Provider: Gbariel Mares Referrals: Gabriel Mares MD [Primary Care Provider] - 10 Day for suture removal Disposition Disposition: Home, Self Care
[2022-05-29 20:22] LABS: Hematocrit 30.7 % (40-54); Hemoglobin 9.6 g/dL (13.0-16.5); Mean Corp Hgb Conc 31.3 g/dL (32-36); Mean Corpuscular Hgb 31.9 pg (27.0-32.0); Mean Platelet Vol. 10.4 fl (6.2-12.0); POSITIVE COUNT YES; POSITIVE DIFFERENTIAL YES; POSITIVE MORPHOLOGY YES; Platelet Count 446 K/mm3 (150-450); RBC Distribution Width CV 15.2 % (11.6-14.6); RBC Distribution Width SD 56.4 fl (35.1-43.9); Red Blood Count 3.01 M/mm3 (4.6-6.2); White Blood Count 5.6 K/mm3 (4.4-11.0)
[2022-05-29 20:25] LABS: Bedside Glucose 168 mg/dL (74-106)
[2022-05-29] MEDS: Diphth,Pertuss(Acell),Tet Vac 0.5 ML Vial IM (20:26)
[2022-05-29] MEDS: Lidocaine 1% (20 ml mdv) 20 ML Vial INFILT (20:26)
[2022-05-29 20:35] LABS: Anion Gap 4 (5-15); BUN 22 mg/dL (7-18); BUN/Creat Ratio 13.9 RATIO (10-20); Calcium,Total 8.7 mg/dL (8.5-10.1); Chloride 108 mmol/L (98-107); Creatinine, Serum 1.58 mg/dL (0.70-1.30); EST Glomerular Filtration Rate 44 mL/min (>60); Est Glom Filt Rate - Afr Amer 54 mL/min (>60); Estimated Creatinine Clearance 29.72 ml/min; Glucose 166 mg/dL (74-106); Potassium 4.6 mmol/L (3.5-5.1); Sodium Level 139 mmol/L (136-145)
[2022-05-29 20:41] LABS: Differential Indicated MANUAL DIFF
[2022-05-29 21:02] VITALS: BP 137/53; PULSE 78; RESP 20; O2SAT 98
[2022-05-29 21:47] LABS: Basophilic Stippling 1+; Macrocytosis 2+; Polychromasia 1+
[2022-05-29 21:48] LABS: Hypersegmented Neutrophils 5.6
[2022-05-29 21:57] LABS: Eosinophil 2 % (0-5); Lymphocyte 9 % (19-41); Monocyte 3 % (0-10); Myelocyte 2 % (0-0); Neutrophil-Segmented 84 % (47-70); Total Cells Counted 100 (MANUAL DIFF)
[2022-05-29 22:06] LABS: Absolute Neutrophil Count 4.7 X10^3/uL (2.0-7.7); Neutrophil # 4.68 X10^3/uL (2.7-7.7)
[2022-05-29 22:53] VITALS: BP 119/56; PULSE 79; RESP 14; O2SAT 97
--- NOTE | 2022-05-29 23:05 | ED.RN ---
family calls back after update with [facility] [place] of 2-3am. She reports she paid [facility] for private pay to come get the patient and they will be here in an hour.
[2022-05-29 23:07] VITALS: PULSE 74; RESP 15
[2022-05-30 01:59] VITALS: RESP 18
[2022-05-30 01:59] LABS: Platelet Estimate MKD INC (ADEQ)
[2022-06-01 13:39] LABS: Pathologist Review Reviewed
== END 2022-05-30 02:00 | disposition home or self-care (01) ==
PROVIDERS: Emergency Provider Emergency Medicine; PCP Internal Medicine; Visit Provider Emergency Medicine
DX: S01.01XA Laceration without foreign body of scalp, initial encounter (principal); E11.9 Type 2 diabetes mellitus without complications; S09.90XA Unspecified injury of head, initial encounter; I25.10 Atherosclerotic heart disease of native coronary artery without angina pectoris; E78.5 Hyperlipidemia, unspecified; Z87.891 Personal history of nicotine dependence; I10 Essential (primary) hypertension; I25.5 Ischemic cardiomyopathy; D64.9 Anemia, unspecified; W01.0XXA Fall on same level from slipping, tripping and stumbling without subsequent striking against object, initial encounter; Y92.129 Unspecified place in nursing home as the place of occurrence of the external cause; I25.2 Old myocardial infarction; Z23 Encounter for immunization
CPT/HCPCS: 12002; 70450; 80048; 82962; 85025; 90715; 99285

== ENCOUNTER → 2022-07-09 | Outpatient (REF) | payer MEDICARE, SELFPAY ==
[2022-07-09 08:38] LABS: Hematocrit 36.7 % (40-54); Hemoglobin 11.6 g/dL (13.0-16.5); Mean Corp Hgb Conc 31.6 g/dL (32-36); Mean Corpuscular Hgb 31.5 pg (27.0-32.0); Mean Corpuscular Volume 99.7 fL (80-94); Mean Platelet Vol. 10.5 fl (6.2-12.0); Platelet Count 397 K/mm3 (150-450); RBC Distribution Width CV 15.9 % (11.6-14.6); RBC Distribution Width SD 58.4 fl (35.1-43.9); Red Blood Count 3.68 M/mm3 (4.6-6.2); White Blood Count 5.3 K/mm3 (4.4-11.0)
[2022-07-09 08:59] LABS: Vitamin B12 1551 pg/mL (211-911)
[2022-07-09 09:08] LABS: Hemoglobin A1c 5.5 % (3.8-5.6)
[2022-07-09 09:12] LABS: Cholesterol 132 mg/dL (200); High Density Lipoprotein 36 mg/dL; Triglycerides 132 mg/dL; Very Low Density Lipoprotein 26 mg/dL (5-40)
[2022-07-10 14:09] LABS: PROEL- A/G Ratio 1.3 (0.7-1.7); PROEL- Albumin 3.7 g/dL (2.9-4.4); PROEL- Alpha-1 Globulin 0.3 g/dL (0.0-0.4); PROEL- Alpha-2 Globulin 0.8 g/dL (0.4-1.0); PROEL- Beta Globulin 0.8 g/dL (0.7-1.3); PROEL- Gamma Globulin 0.9 g/dL (0.4-1.8); PROEL- Globulin, Total 2.8 g/dL (2.2-3.9); PROEL- TOTAL PROTEIN 6.5 g/dL (6.0-8.5)
== END ==
LOC: OLS.DANBUR 05:00
PROVIDERS: PCP Internal Medicine; Visit Provider Internal Medicine
DX: I10 Essential (primary) hypertension (principal); E11.9 Type 2 diabetes mellitus without complications; E78.5 Hyperlipidemia, unspecified
CPT/HCPCS: 36415; 80061; 82607; 83036; 84165; 85027

== ENCOUNTER → 2022-07-13 | Outpatient (REF) | payer MEDICARE, SELFPAY ==
[2022-07-13 14:29] LABS: Microalbumin:Creatinine Ratio 1373.2 mg/g CRE (<30 mg/g CRE)
== END ==
LOC: OLS.DANBUR 08:30
PROVIDERS: PCP Internal Medicine; Visit Provider Internal Medicine
DX: I10 Essential (primary) hypertension (principal); E11.9 Type 2 diabetes mellitus without complications; E78.5 Hyperlipidemia, unspecified
CPT/HCPCS: 82043; 82570

== ENCOUNTER → 2022-07-23 | Outpatient (REF) | payer MEDICARE, SELFPAY ==
[2022-07-23 10:14] LABS: Anion Gap 6 (5-15); BUN 26 mg/dL (7-18); BUN/Creat Ratio 21.5 RATIO (10-20); Calcium,Total 8.8 mg/dL (8.5-10.1); Chloride 109 mmol/L (98-107); Creatinine, Serum 1.21 mg/dL (0.70-1.30); EST Glomerular Filtration Rate 60 mL/min (>60); Est Glom Filt Rate - Afr Amer 73 mL/min (>60); Glucose 134 mg/dL (74-106); Potassium 4.3 mmol/L (3.5-5.1); Sodium Level 139 mmol/L (136-145)
== END ==
LOC: OLS.DANBUR 05:00
PROVIDERS: PCP Internal Medicine; Visit Provider Internal Medicine
DX: I10 Essential (primary) hypertension (principal)
CPT/HCPCS: 36415; 80048

== ENCOUNTER → 2022-07-25 | Outpatient (REF) | payer MEDICARE, SELFPAY ==
[2022-07-25 15:40] LABS: Color, Urine Yellow (Yellow); Glucose, Dipstick Normal (Normal); Ketone-Dipstick Negative (Negative); Leukocyte Esterase-Dipstick 500 /ul (Negative); Nitrite-Dipstick Positive (Negative); Occult Blood-Urine 10 /ul (Negative); Protein-Dipstick 100 mg/dl (Negative); Urine Bilirubin Dipstick Negative (Negative); Urine Clarity Clear (Clear); Urine Urobilinogen Normal (Normal)
== END ==
LOC: OLS.DANBUR 12:10
PROVIDERS: PCP Internal Medicine; Visit Provider Internal Medicine
DX: I10 Essential (primary) hypertension (principal); R80.9 Proteinuria, unspecified
CPT/HCPCS: 81002; 87086; 87088

== ENCOUNTER → 2022-07-30 | Outpatient (REF) | payer MEDICARE, SELFPAY ==
[2022-07-30 08:34] LABS: Hematocrit 36.8 % (40-54); Hemoglobin 11.6 g/dL (13.0-16.5); Mean Corp Hgb Conc 31.5 g/dL (32-36); Mean Corpuscular Hgb 31.6 pg (27.0-32.0); Mean Corpuscular Volume 100.3 fL (80-94); Mean Platelet Vol. 10.8 fl (6.2-12.0); Platelet Count 405 K/mm3 (150-450); RBC Distribution Width CV 16.3 % (11.6-14.6); RBC Distribution Width SD 59.8 fl (35.1-43.9); Red Blood Count 3.67 M/mm3 (4.6-6.2); White Blood Count 7.1 K/mm3 (4.4-11.0)
== END ==
LOC: OLS.DANBUR 05:00
PROVIDERS: PCP Internal Medicine; Visit Provider Internal Medicine
DX: I10 Essential (primary) hypertension (principal); E78.5 Hyperlipidemia, unspecified
CPT/HCPCS: 36415; 85027

== ENCOUNTER 2022-08-04 21:11 | Inpatient (IN) | payer MEDICARE, SELFPAY ==
[2022-08-04 21:12] VITALS: BP 133/50; PULSE 88; RESP 16; TEMP 36.9; O2SAT 95; BMI 21.9
[2022-08-04 21:16] VITALS: BP 133/50; PULSE 90; RESP 15; O2SAT 93; O2SAT 94
--- NOTE | 2022-08-04 21:26 | EDS_ITS ---
HPI HPI - Fall History of Present Illness Chief Complaint: Fall Detail of Chief Complaint: Fall Informant: patient Narrative Narrative: Patient presents after sustaining a fall sometime this week. Patient comes from assisted living via EMS. Apparently he is not been able to walk well on it as the day is progressed today and now cannot bear weight. Patient does not think he hit his head this time but he does fall frequently. He denies neck pain or chest pain or abdominal pain. Denies recent illness. PFSH PFS Medical History Atherosclerotic heart disease of [place] coronary artery without angina pectoris Community acquired pneumonia Coronary artery disease Diabetes Diabetic foot infection Essential thrombocytosis Former smoker HLD (hyperlipidemia) HTN (hypertension) Hydrocephalus Ischemic cardiomyopathy Kidney stones Lung mass Mass of lower lobe of left lung Myocardial infarct Normal pressure hydrocephalus Type II diabetes mellitus Home Medications aspirin 81 mg chewable tablet 81 mg PO QHS heart health 04/02/16 [History Last Taken 10/18/21] atorvastatin 20 mg tablet 20 mg PO QHS choleterol 04/02/16 [History Last Taken 10/18/21] ramipril 5 mg capsule 10 mg PO DAILY blood pressure 04/02/16 [History Last Taken 10/19/21] hydroxyurea 500 mg capsule (Hydrea) 500 mg PO MOTUWETHFR Check with primary doctor 12/08/17 [History Last Taken 10/17/21] tamsulosin 0.4 mg capsule 0.4 mg PO QHS bladder 10/19/21 [History Last Taken 10/18/21] metoprolol tartrate 25 mg tablet 25 mg PO BID Check with primary doctor 11/16/21 [History Last Taken Unknown] pyridoxine (vitamin B6) 100 mg tablet (Vitamin B-6) 100 mg PO DAILY Check with primary doctor 11/16/21 [History Last Taken Unknown] clotrimazole-betamethasone 1 %-0.05 % topical cream 1 applic topical DAILY #15 grams 11/18/21 [Rx Last Taken Unknown] loperamide 2 mg tablet 2 mg PO Q6H PRN Constipation 08/04/22 [History Last Taken Unknown] melatonin 10 mg tablet 10 mg PO QHS 08/04/22 [History Last Taken Unknown] sertraline 25 mg tablet 25 mg PO DAILY 08/04/22 [History Last Taken Unknown] Allergy/AdvReac Type Severity Reaction Status Date / Time No Known Allergies Allergy Verified 08/04/22 21:12 Family History Father CAD (coronary artery disease) Myocardial infarction Mother , age 80+, cause not listed No problems noted. Surgical History History of bronchoscopy History of left heart catheterization S/P CABG x 3 Social History household members: spouse Smoking Status: Former smoker quit date: 09/20/84 pack-years: 20 how long ago did patient quit smoking: Quit ~ 50 years prior, 1 ppd since teen until quit. alcohol intake: never substance use type: does not use ROS ROS ED Review of Systems ROS Unobtainable: other Constitutional Constitutional ED: Reports lethargy; Denies chills, fever(s), sweats or weight loss Eyes Eyes: Denies blurry vision, change in vision or diplopia ENT ENT ED: Denies rhinorrhea or sore throat Cardiovascular Cardiovascular: Denies chest pain, orthopnea or racing heartbeat Respiratory/Chest Respiratory/Chest: Denies cough, dyspnea, dyspnea on exertion, orthopnea or sputum Gastrointestinal Gastrointestinal: Denies abdominal pain, diarrhea, nausea or vomiting Genitourinary Genitourinary ED: Denies dysuria, hematuria or urinary frequency Musculoskeletal Musculoskeletal: Reports other Details: Left leg pain ; Denies arthralgias, back pain, myalgias or neck pain Integumentary Denies abscess, Abrasions or rash Neurologic Neurologic: Denies headache(s) or weakness Psychiatric Psychiatric: Denies anxiety, depression or suicidal thoughts Endocrine Endocrinology: Denies polydipsia, polyphagia or polyuria Hematologic/Lymphatic Hematologic/Lymphatic: Denies easy bleeding, easy bruising or lymphadenopathy Allergic/Immunologic Allergic/Immunologic ED: Denies mouth swelling, tongue swelling or urticaria EXAM Physical Exam Const Vital Signs: 08/04/22 21:12 08/04/22 21:16 08/04/22 21:16 Temperature 98.5 F Temperature Source Oral Pulse Rate 88 90 Respiratory Rate 16 15 Respiratory Effort Normal Respiratory Depth Normal Respiratory Pattern Normal Blood Pressure 133/50 H 133/50 H Blood Pressure Mean 77 77 Pulse Ox 95 93 94 Oxygen Delivery Method Room Air Room Air Room Air Positive well nourished and well developed General Appearance ED: well developed and NAD HEENT Reports TM's clear and moist mucous membranes normocephalic and atraumatic; Negative for trauma or tenderness Tympanic Membrane ED: Yes TM's clear Eyes PERRL and EOMs intact bilaterally General Eye ED: Negative for pale conjunctiva or scleral icterus Neck no lymphadenopathy, supple and no JVD General: Negative for tenderness Chest Wall inspection of chest normal and palpation of chest normal Chest: Negative for tenderness Resp normal respiratory effort and clear to auscultation bilaterally Effort and Inspection: Negative for respiratory distress or pain with movement Auscultation: Negative for rhonchi, wheezes or diminished lung sounds Cardio regular rate, regular rhythm, S1 normal heart sound, S2 normal heart sound and no murmurs Peripheral Pulses: pulses 2+ throughout GI normal to inspection, nondistended, normoactive bowel sounds, soft to palpation, non-tender, non-distended and no masses Back/Spine no CVA tenderness and no thoracic nor lumbar tenderness Extremity Extremity Narrative: Left leg-patient has tenderness over the left hip and pain with logrolling and straight leg raising. Patient has tenderness over the left pubic rami. Patient has discomfort at the left ankle on exam. There is no obvious deformity. There is no obvious soft tissue swelling or ecchymosis or bruising noted. Neurovascular intact distally. General Extremety ED: Negative for edema General Extremity: Negative for edema Neuro oriented x3, CN's II-XII intact bilaterally, no sensory deficits noted and gait normal Sensorium / Orientation: awake, alert, oriented to person, oriented to place and oriented to time Motor Exam: strength 5/5 throughout and strength abnormal Psych mental status grossly normal Skin no rashes or lesions noted and no wounds MDM MDM MDM Narrative Medical decision making narrative: IV line established. Patient did not want thing for pain. Lab work-up unremarkable. He did have some renal insufficiency with BUN of 45 and creatinine 1.61. X-rays of the left femur and pelvis obtained showed a left intertrochanteric hip fracture. Case discussed with hospitalist will evaluate patient for admission. Case discussed with orthopedic surgeon on-call who will consult on the case. Lab Data Attestation: I reviewed the patient's lab results. Labs: Laboratory Results - last 24 hr 08/04/22 08/04/22 21:39 21:39 WBC 12.2 H RBC 3.69 L Hgb 11.4 L Hct 35.6 L MCV 96.5 H MCH 30.9 MCHC 32.0 RDW Std Deviation 57.1 H RDW Coeff of Andrew 16.0 H Plt Count 552 H MPV 10.8 Neut % (Auto) Not Reportable Absolute Neuts (auto) 11.5 H Absolute Lymphs (auto) 0.61 L Total Counted 100 Neutrophils % (Manual) 93 H Band Neutrophils % 1 Lymphocytes % (Manual) 5 L Monocytes % (Manual) 1 Diff Path Review May foll Atypical Lymphocytes RARE Sodium 138 Potassium 4.3 Chloride 106 Carbon Dioxide 23.0 Anion Gap 9 BUN 45 H Creatinine 1.61 H Estim Creat Clear Calc 28.21 Est GFR (MDRD) Af Amer 52 L Est GFR (MDRD) Non-Af 43 L BUN/Creatinine Ratio 28.0 H Glucose 259 H Calcium 8.8 Radiography Diagnostic Testing: Clinical Impression(s) from Imaging Studies Femur X-Ray 08/04/22 22:00 IMPRESSION: Acute nondisplaced intertrochanteric fracture. Electronically Signed: Jd Shaikh MD at 23:07 EST Reading Location ID and State: [employer] / [place] Tel , Service support , Pelvis X-Ray 08/04/22 22:00 IMPRESSION: No acute findings in the pelvis. Electronically Signed: Jd Shaikh MD at 23:17 EST Reading Location ID and State: [employer] / [place] Tel , Service support , Tibia/Fibula X-Ray 08/04/22 22:00 IMPRESSION: 1. No acute or healing fracture or malalignment. 2. Vascular calcifications posteriorly. 3. Soft tissues are without focal abnormalities. Electronically Signed: Jd Shaikh MD at 23:08 EST Reading Location ID and State: [employer] / [place] Tel , Service support , 2 view x-rays of the left femur obtained interpreted by myself as left intertrochanteric hip fracture. Radiology in agreement. 2 view x-rays of the left tib-fib obtained interpreted by myself as no acute fractures. Radiology in agreement. 1 view x-ray of pelvis obtained interpreted by myself as no acute fractures and radiology in agreement. EKG Initial EKG: Attestation: I personally reviewed and interpreted this EKG as follows: Comments: Sinus rhythm with a ventricular rate of 83 bpm with occasional PACs Discharge Plan Dx/Rx/DC Orders Clinical Impression: Fall, Closed fracture of left hip, History of coronary artery disease, History of hypertension Disposition Disposition: Acute Care [facility]
[2022-08-04 21:48] LABS: Hematocrit 35.6 % (40-54); Hemoglobin 11.4 g/dL (13.0-16.5); Mean Corpuscular Hgb 30.9 pg (27.0-32.0); Mean Corpuscular Volume 96.5 fL (80-94); Mean Platelet Vol. 10.8 fl (6.2-12.0); POSITIVE COUNT YES; POSITIVE DIFFERENTIAL YES; POSITIVE MORPHOLOGY YES; Platelet Count 552 K/mm3 (150-450); RBC Distribution Width SD 57.1 fl (35.1-43.9); Red Blood Count 3.69 M/mm3 (4.6-6.2); White Blood Count 12.2 K/mm3 (4.4-11.0)
--- NOTE | 2022-08-04 22:00 | RAD_ITS ---
EXAM: XR LEFT TIBIA AND FIBULA, 2 VIEWS CLINICAL INDICATION: fall TECHNIQUE: Frontal and lateral views of the left tibia and fibula. This report was created using [employer] report generation technology. COMPARISON: None. FINDINGS: See Impression. RAD/Tibia & Fibula 2 Views IMPRESSION: 1. No acute or healing fracture or malalignment. 2. Vascular calcifications posteriorly. 3. Soft tissues are without focal abnormalities. Electronically Signed: Jd Shaikh MD at 23:08 EST ,
--- NOTE | 2022-08-04 22:00 | RAD_ITS ---
EXAM: XR PELVIS, 1 OR 2 VIEWS CLINICAL INDICATION: fall TECHNIQUE: Frontal view of the pelvis. This report was created using [employer] report generation technology. COMPARISON: None. FINDINGS: BONES/JOINTS: Acute nondisplaced left intertrochanteric fracture. No other acute 4 healing fracture or malalignment. Degenerative changes of the spine. No destructive or sclerotic lesions. Note that overlapping bowel shadows may however obscure fine detail. Sacroiliac joints are unremarkable. No widening of the pubic symphysis. SOFT TISSUES: No other focal soft tissue abnormalities. No soft tissue swelling or gas. VASCULATURE: Multiple phleboliths in the pelvis. OTHER FINDINGS: Impression;. RAD/Pelvis 1 or 2 Views IMPRESSION: No acute findings in the pelvis. Electronically Signed: Jd Shaikh MD at 23:17 EST ,
--- NOTE | 2022-08-04 22:00 | RAD_ITS ---
EXAM: XR LEFT FEMUR, 2 VIEWS CLINICAL INDICATION: fall TECHNIQUE: Frontal and lateral views of the left femur. This report was created using [employer] report generation technology. COMPARISON: None. FINDINGS: BONES/JOINTS: Acute nondisplaced intertrochanteric fracture. Mild left hip osteoarthrosis. SOFT TISSUES: See below. VASCULATURE: Phleboliths in the pelvis. Vascular calcifications in the right groin/proximal femur region. Peripheral vascular calcifications along the extremity. RAD/Femur Min 2 Views IMPRESSION: Acute nondisplaced intertrochanteric fracture. Electronically Signed: Jd Shaikh MD at 23:07 EST ,
[2022-08-04 22:04] LABS: Differential Indicated MANUAL DIFF
[2022-08-04 22:06] LABS: Anion Gap 9 (5-15); BUN 45 mg/dL (7-18); Calcium,Total 8.8 mg/dL (8.5-10.1); Chloride 106 mmol/L (98-107); Creatinine, Serum 1.61 mg/dL (0.70-1.30); EST Glomerular Filtration Rate 43 mL/min (>60); Est Glom Filt Rate - Afr Amer 52 mL/min (>60); Estimated Creatinine Clearance 28.21 ml/min; Glucose 259 mg/dL (74-106); Potassium 4.3 mmol/L (3.5-5.1); Sodium Level 138 mmol/L (136-145)
[2022-08-04 22:20] LABS: Lymphocyte 5 % (19-41); Monocyte 1 % (0-10); Neutrophil-Band 1 % (0-5); Neutrophil-Segmented 93 % (47-70); Total Cells Counted 100 (MANUAL DIFF)
[2022-08-04 22:21] LABS: Absolute Lymphocyte Count 0.61 X10^3/uL (0.83-4.51); Absolute Neutrophil Count 11.5 X10^3/uL (2.0-7.7); Atypical Lymphocyte RARE %
--- NOTE | 2022-08-04 23:14 | RAD_ITS ---
EXAM: XR CHEST, 1 VIEW CLINICAL INDICATION: fall TECHNIQUE: Frontal view of the chest. This report was created using [employer] report generation technology. COMPARISON: 10/19/2021 FINDINGS: LUNGS AND PLEURAL SPACES: Unremarkable. No consolidation or edema. No pneumothorax. No effusion. HEART: Unremarkable. Cardiac silhouette not enlarged. MEDIASTINUM: Surgical changes of the mediastinum. BONES/JOINTS: Unremarkable. SOFT TISSUES: Unremarkable. RAD/Chest 1 View (Portable) IMPRESSION: No acute findings in the chest. Electronically Signed: López Carmichael MD at 0:35 EST ,
--- NOTE | 2022-08-04 23:14 | EKG12_ITS ---
Test Reason : DYSRHYTHMIA Blood Pressure : / mmHG Vent. Rate : 083 BPM Atrial Rate : 083 BPM P-R Int : 146 ms QRS Dur : 086 ms QT Int : 388 ms P-R-T Axes : 058 039 011 degrees QTc Int : 455 ms Sinus rhythm with Premature supraventricular complexes Otherwise normal ECG Confirmed by DONALD DAVALOS, DU ([id number]), offline editor CHANEL BLUM ([id number]) on 08/05/2022 2:42:21 PM Referred By: EPI Confirmed By:DU BENNETT MD
--- NOTE | 2022-08-04 23:27 | ED.RN ---
update given to Renate Berg about admission and plan of care.
[2022-08-04 23:29] LABS: Platelet Estimate MOD INC (ADEQ); Red Cell Morphology NORM C+C NORMAL (NORM C&C)
--- NOTE | 2022-08-04 23:31 | PCM.HP.STD ---
HPI - General General Date of Admission: 08/04/22 HPI Narrative SHERRY MOHAMUD, is a 86 M who presents to the hospital after a fall at the assisted living. He thinks that he lost his balance, he does not remember tripping over anything. He denies losing consciousness. He did not remember quite when he fell but as the day wore on today he could put less and less weight on it and now he cannot bear weight on it at all. X-ray in the ER showed a left nondisplaced intertrochanteric fracture. He does have a slight leukocytosis which is likely reactionary. [facility] Medical History Atherosclerotic heart disease of [place] coronary artery without angina pectoris Community acquired pneumonia Coronary artery disease Diabetes Diabetic foot infection Essential thrombocytosis Former smoker HLD (hyperlipidemia) HTN (hypertension) Hydrocephalus Ischemic cardiomyopathy Kidney stones Lung mass Mass of lower lobe of left lung Myocardial infarct Normal pressure hydrocephalus Type II diabetes mellitus Home Medications aspirin 81 mg chewable tablet 81 mg PO QHS heart health 04/02/16 [History Last Taken 10/18/21] atorvastatin 20 mg tablet 20 mg PO QHS choleterol 04/02/16 [History Last Taken 10/18/21] ramipril 5 mg capsule 10 mg PO DAILY blood pressure 04/02/16 [History Last Taken 10/19/21] hydroxyurea 500 mg capsule (Hydrea) 500 mg PO MOTUWETHFR Check with primary doctor 12/08/17 [History Last Taken 10/17/21] tamsulosin 0.4 mg capsule 0.4 mg PO QHS bladder 10/19/21 [History Last Taken 10/18/21] metoprolol tartrate 25 mg tablet 25 mg PO BID Check with primary doctor 11/16/21 [History Last Taken Unknown] pyridoxine (vitamin B6) 100 mg tablet (Vitamin B-6) 100 mg PO DAILY Check with primary doctor 11/16/21 [History Last Taken Unknown] clotrimazole-betamethasone 1 %-0.05 % topical cream 1 applic topical DAILY #15 grams 11/18/21 [Rx Last Taken Unknown] loperamide 2 mg tablet 2 mg PO Q6H PRN Constipation 08/04/22 [History Last Taken Unknown] melatonin 10 mg tablet 10 mg PO QHS 08/04/22 [History Last Taken Unknown] sertraline 25 mg tablet 25 mg PO DAILY 08/04/22 [History Last Taken Unknown] Allergy/AdvReac Type Severity Reaction Status Date / Time No Known Allergies Allergy Verified 08/04/22 21:12 Family History Father CAD (coronary artery disease) Myocardial infarction Mother , age 80+, cause not listed No problems noted. Surgical History History of bronchoscopy History of left heart catheterization S/P CABG x 3 Social History household members: spouse Smoking Status: Former smoker quit date: 09/20/84 pack-years: 20 how long ago did patient quit smoking: Quit ~ 50 years prior, 1 ppd since teen until quit. alcohol intake: never substance use type: does not use ROS Constitutional Constitutional: Denies chills, fatigue, fever(s) or malaise Eyes Eyes: Denies blurry vision ENT HEENT: Denies headache(s) or nasal discharge Cardiovascular Cardiovascular: Denies chest pain, dyspnea on exertion or syncope Respiratory/Chest Respiratory/Chest: Denies cough, shortness of breath at rest or shortness of breath with exertion Gastrointestinal Gastrointestinal: Denies constipation, diarrhea, nausea or vomiting Genitourinary Genitourinary: Denies dysuria Musculoskeletal Musculoskeletal: Reports joint pain Neurologic Neurologic: Denies focal weakness, numbness or tremor(s) Psychiatric Psychiatric: Denies anxiety or depression Vital Signs Vital Signs Vital Signs: 08/04/22 21:12 08/04/22 21:16 08/04/22 21:16 Temperature 98.5 F Temperature Source Oral Pulse Rate 88 90 Respiratory Rate 16 15 Respiratory Effort Normal Respiratory Depth Normal Respiratory Pattern Normal Blood Pressure 133/50 H 133/50 H Blood Pressure Mean 77 77 Pulse Ox 95 93 94 Oxygen Delivery Method Room Air Room Air Room Air Weight Weight: 136 lb 0.403 oz Body Mass Index (BMI) 21.9 Physical Exam Narrative General: Alert, Oriented x3, Cooperative, No apparent distress HEENT: Atraumatic, PERRLA, EOMI, Normocephalic Oral: Moist Mucosa Neck: Supple, No JVD Lungs: Clear to auscultation, Normal air movement, No rhonchi, No wheeze, No rales Cardiovascular: Regular rate, Regular Rhythm, Normal S1, Normal S2, No murmurs Abdomen: Soft, Non Tender, Non-Distended, No Hepato-splenomegaly Extremities: No edema, Capillary Refill Less than 3 Seconds Skin: No rashes, No breakdown Musculoskeletal: Tenderness to left hip palpation Neurological: Cranial nerves II-XII grossly intact, Motor Exam 5/5 strength throughout, Sensory exam intact to light touch and pain Psych/Mental Status: Normal Affect, Appropriate Results Lab / Micro Data Result Diagrams: 08/04/22 21:39 08/04/22 21:39 Labs: Laboratory Results - last 24 hr 08/04/22 21:39: WBC 12.2 H, RBC 3.69 L, Hgb 11.4 L, Hct 35.6 L, MCV 96.5 H, MCH 30.9, MCHC 32.0, RDW Std Deviation 57.1 H, RDW Coeff of Andrew 16.0 H, Plt Count 552 H, MPV 10.8, Neut % (Auto) Not Reportable, Absolute Neuts (auto) 11.5 H, Absolute Lymphs (auto) 0.61 L, Total Counted 100, Neutrophils % (Manual) 93 H, Band Neutrophils % 1, Lymphocytes % (Manual) 5 L, Monocytes % (Manual) 1, Diff Path Review May foll, Atypical Lymphocytes RARE, Platelet Estimate MOD INC, RBC Morphology NORM C+C 08/04/22 21:39: Sodium 138, Potassium 4.3, Chloride 106, Carbon Dioxide 23.0, Anion Gap 9, BUN 45 H, Creatinine 1.61 H, Estim Creat Clear Calc 28.21, Est GFR (MDRD) Af Amer 52 L, Est GFR (MDRD) Non-Af 43 L, BUN/Creatinine Ratio 28.0 H, Glucose 259 H, Calcium 8.8 Radiology Impression Femur X-Ray 08/04/22 22:00 IMPRESSION: Acute nondisplaced intertrochanteric fracture. Electronically Signed: Jd Shaikh MD at 23:07 EST , Pelvis X-Ray 08/04/22 22:00 IMPRESSION: No acute findings in the pelvis. Electronically Signed: Jd Shaikh MD at 23:17 EST , Tibia/Fibula X-Ray 08/04/22 22:00 IMPRESSION: 1. No acute or healing fracture or malalignment. 2. Vascular calcifications posteriorly. 3. Soft tissues are without focal abnormalities. Electronically Signed: Jd Shaikh MD at 23:08 EST , Assessment & Plan Assessment/Plan (1) Closed fracture of left hip: PLAN: Plan 1. Left nondisplaced intertrochanteric fracture ? We will make him n.p.o. for surgery ? We will provide pain meds ? PT/OT ? Consult orthopedic surgery ? Slightly below average risk for surgery 2. HTN/HLD/CAD status post CABG/history of CVA ? Blood pressures are stable, will continue with his home metoprolol ? Continue with Lipitor ? Continue with aspirin ? We will continue with his ramipril and make adjustments as needed 3. Left lower lung mass ? 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 Anxiety/depression ? Stable ? Continue with his Zoloft 5. BPH ? Stable ? Continue with Flomax DVT: SCDs Charges/Coding Visit Charges Inpatient E&M: 87971 Init Hosp L2
[2022-08-04 23:38] VITALS: BP 133/50; PULSE 90; RESP 15; TEMP 36.9; O2SAT 94
[2022-08-05] VITALS (24 sets, daily range): BP systolic 121–155; BP diastolic 45–93; PULSE 75–165; RESP 16–20; TEMP 36.2–37.3; O2SAT 88–97; BMI 18.2; BMI 19.1
--- NOTE | 2022-08-05 00:11 | CONS.ORTHO ---
HPI Consult Data Date of Consult: 08/05/22 HPI Narrative HPI Narrative: SHERRY MOHAMUD, is a 86 M who presents with a left hip fracture. Lives in assisted living. No antecedent hip pain. Mechanical fall. No SOB or HI/LOC. Unable to ambulate. Uses a walker PRN normally. Denies other sources of pain, just left hip. [facility] Medical History Atherosclerotic heart disease of [place] coronary artery without angina pectoris Community acquired pneumonia Coronary artery disease Diabetes Diabetic foot infection Essential thrombocytosis Former smoker HLD (hyperlipidemia) HTN (hypertension) Hydrocephalus Ischemic cardiomyopathy Kidney stones Lung mass Mass of lower lobe of left lung Myocardial infarct Normal pressure hydrocephalus Type II diabetes mellitus Home Medications aspirin 81 mg chewable tablet 81 mg PO QHS heart health 04/02/16 [History Last Taken 10/18/21] atorvastatin 20 mg tablet 20 mg PO QHS choleterol 04/02/16 [History Last Taken 10/18/21] ramipril 5 mg capsule 10 mg PO DAILY blood pressure 04/02/16 [History Last Taken 10/19/21] hydroxyurea 500 mg capsule (Hydrea) 500 mg PO MOTUWETHFR Check with primary doctor 12/08/17 [History Last Taken 10/17/21] tamsulosin 0.4 mg capsule 0.4 mg PO QHS bladder 10/19/21 [History Last Taken 10/18/21] metoprolol tartrate 25 mg tablet 25 mg PO BID Check with primary doctor 11/16/21 [History Last Taken Unknown] pyridoxine (vitamin B6) 100 mg tablet (Vitamin B-6) 100 mg PO DAILY Check with primary doctor 11/16/21 [History Last Taken Unknown] clotrimazole-betamethasone 1 %-0.05 % topical cream 1 applic topical DAILY #15 grams 11/18/21 [Rx Last Taken Unknown] loperamide 2 mg tablet 2 mg PO Q6H PRN Constipation 08/04/22 [History Last Taken Unknown] melatonin 10 mg tablet 10 mg PO QHS 08/04/22 [History Last Taken Unknown] sertraline 25 mg tablet 25 mg PO DAILY 08/04/22 [History Last Taken Unknown] Allergy/AdvReac Type Severity Reaction Status Date / Time No Known Allergies Allergy Verified 08/04/22 21:12 Family History Father CAD (coronary artery disease) Myocardial infarction Mother , age 80+, cause not listed No problems noted. Surgical History History of bronchoscopy History of left heart catheterization S/P CABG x 3 Social History household members: spouse Smoking Status: Former smoker quit date: 09/20/84 pack-years: 20 how long ago did patient quit smoking: Quit ~ 50 years prior, 1 ppd since teen until quit. alcohol intake: never substance use type: does not use Vital Signs Vital Signs Vital Signs: 08/04/22 21:12 08/04/22 21:16 08/04/22 21:16 Temperature 98.5 F Temperature Source Oral Pulse Rate 88 90 Respiratory Rate 16 15 Respiratory Effort Normal Respiratory Depth Normal Respiratory Pattern Normal Blood Pressure 133/50 H 133/50 H Blood Pressure Mean 77 77 Pulse Ox 95 93 94 Oxygen Delivery Method Room Air Room Air Room Air 08/04/22 23:38 Temperature 98.5 F Temperature Source Oral Pulse Rate 90 Respiratory Rate 15 Respiratory Effort Respiratory Depth Respiratory Pattern Blood Pressure 133/50 H Blood Pressure Mean 77 Pulse Ox 94 Oxygen Delivery Method Room Air Weight Weight: 136 lb 0.403 oz Body Mass Index (BMI) 21.9 Physical Exam Const alert and no apparent distress General Appearance: cooperative HEENT normocephalic Resp normal respiratory effort Cardio regular rate GI non-tender Extremity normal capillary refill, no clubbing, cyanosis or edema, no calf tenderness and no pedal edema Extremity Narrative: closed, no bruising. no pain at knee or foot/ankle. normal sens and motor function to dorsum and plantar foot, warm, well perfused, normal tib post pulse, DF and PF foot and wiggles toes, calf soft. Lab / Micro Data Result Diagrams: 08/04/22 21:39 08/04/22 21:39 Labs: Laboratory Results - last 24 hr 08/04/22 21:39: WBC 12.2 H, RBC 3.69 L, Hgb 11.4 L, Hct 35.6 L, MCV 96.5 H, MCH 30.9, MCHC 32.0, RDW Std Deviation 57.1 H, RDW Coeff of Andrew 16.0 H, Plt Count 552 H, MPV 10.8, Neut % (Auto) Not Reportable, Absolute Neuts (auto) 11.5 H, Absolute Lymphs (auto) 0.61 L, Total Counted 100, Neutrophils % (Manual) 93 H, Band Neutrophils % 1, Lymphocytes % (Manual) 5 L, Monocytes % (Manual) 1, Diff Path Review May foll, Atypical Lymphocytes RARE, Platelet Estimate MOD INC, RBC Morphology NORM C+C 08/04/22 21:39: Sodium 138, Potassium 4.3, Chloride 106, Carbon Dioxide 23.0, Anion Gap 9, BUN 45 H, Creatinine 1.61 H, Estim Creat Clear Calc 28.21, Est GFR (MDRD) Af Amer 52 L, Est GFR (MDRD) Non-Af 43 L, BUN/Creatinine Ratio 28.0 H, Glucose 259 H, Calcium 8.8 Radiology Impression Femur X-Ray 08/04/22 22:00 IMPRESSION: Acute nondisplaced intertrochanteric fracture. Electronically Signed: Jd Shaikh MD at 23:07 EST Reading Location ID and State: [facility] [employer] / [place] Tel , Service support , Pelvis X-Ray 08/04/22 22:00 IMPRESSION: No acute findings in the pelvis. Electronically Signed: Jd Shaikh MD at 23:17 EST Reading Location ID and State: [facility] [employer] / [place] Tel , Service support , Tibia/Fibula X-Ray 08/04/22 22:00 IMPRESSION: 1. No acute or healing fracture or malalignment. 2. Vascular calcifications posteriorly. 3. Soft tissues are without focal abnormalities. Electronically Signed: Jd Shaikh MD at 23:08 EST Reading Location ID and State: [employer] / [place] Tel , Service support , Agree, left IT hip fracture, min displaced. Assessment & Plan Assessment/Plan (1) Closed fracture of left hip: PLAN: 86 yr old male left hip IT fracture. Plan for ORIF with IM nail synthes TFN-A recommended. Risks of non op discussed. Recommended for surgery. Admit under hospitalist and NPO, house designer aware with plan for tomorrow afternoon hopefully. Here with grand daughter. Left leg marked. Pros and cons risks and benefits were discussed with the patient including but not limited to infection, pain, stiffness, bleeding, damage to surrounding structures, neurovascular injury, recurrence or retear, failure or wear of hardware or fixation, instability, fracture, deep vein thrombosis and pulmonary embolism, anesthetic risks, patient dissatisfaction, need for further surgery and other risks. Patient understood and wished to proceed with surgery, and signed the informed consent documentation.
--- NOTE | 2022-08-05 00:47 | NURSING ---
pt arrives to the floor alone. states daughter has his med list.
[2022-08-05] MEDS: 0.9% Saline Lock 10 ML Syringe IV (01:00)
[2022-08-05] MEDS: 0.9% Normal Saline 1,000 ML 75 ML IV ×2 (01:00→17:23)
[2022-08-05 05:35] LABS: Hemoglobin 9.9 g/dL (13.0-16.5); Mean Corp Hgb Conc 31.9 g/dL (32-36); Mean Corpuscular Hgb 30.7 pg (27.0-32.0); Mean Corpuscular Volume 96.3 fL (80-94); Mean Platelet Vol. 10.4 fl (6.2-12.0); POSITIVE COUNT YES; POSITIVE DIFFERENTIAL YES; POSITIVE MORPHOLOGY YES; Platelet Count 521 K/mm3 (150-450); RBC Distribution Width SD 57.6 fl (35.1-43.9); Red Blood Count 3.22 M/mm3 (4.6-6.2); White Blood Count 11.4 K/mm3 (4.4-11.0)
[2022-08-05 05:50] LABS: International Normalized Ratio 1.5; Prothrombin Time (Protime)PT. 17.4 SECONDS (11.7-14.9)
[2022-08-05 05:51] LABS: Differential Indicated MANUAL DIFF; Partial Thromboplast Time 39.4 Seconds (24.1-36.2)
[2022-08-05 05:52] LABS: Absolute Neutrophil Count 9.4 X10^3/uL (2.0-7.7); Anisocytosis 1+; Macrocytosis RARE; Platelet Estimate MOD INC (ADEQ)
[2022-08-05 05:53] LABS: Absolute Lymphocyte Count 0.34 X10^3/uL (0.83-4.51); Lymphocyte 3 % (19-41); Metamyelocyte 1 % (0-1); Monocyte 9 % (0-10); Myelocyte 4 % (0-0); Neutrophil-Band 5 % (0-5); Neutrophil-Segmented 78 % (47-70); Total Cells Counted 100 (MANUAL DIFF)
[2022-08-05 05:59] LABS: Anion Gap 8 (5-15); BUN 42 mg/dL (7-18); BUN/Creat Ratio 27.3 RATIO (10-20); Calcium,Total 8.3 mg/dL (8.5-10.1); Chloride 109 mmol/L (98-107); Creatinine, Serum 1.54 mg/dL (0.70-1.30); EST Glomerular Filtration Rate 46 mL/min (>60); Est Glom Filt Rate - Afr Amer 55 mL/min (>60); Estimated Creatinine Clearance 27.53 ml/min; Glucose 188 mg/dL (74-106); Potassium 4.1 mmol/L (3.5-5.1); Sodium Level 140 mmol/L (136-145)
--- NOTE | 2022-08-05 06:30 | RAD_ITS ---
STUDY: X-RAY - PELVIS AND LEFT HIP REASON FOR EXAM: Male, 86 years old. FX TECHNIQUE: 4 fluoroscopic spot views of the pelvis and hip. COMPARISON: August 04, 2022 FINDINGS: Intramedullary edu and compression screws transfix the femur. RAD/Hip 1 view with Pelvis IMPRESSION: Please correlate with clinical service. Electronically Signed: Brien Mckeon MD at 17:27 EST ,
[2022-08-05 08:05] LABS: Hemoglobin A1c 6.2 % (3.8-5.6)
--- NOTE | 2022-08-05 09:20 | PCM.PN.HOSP ---
Subjective Subjective Reports feeling well today with slight pain into his left leg. Denies other complaints at this time. Per report he has been intermittently confused Objective Data Objective Data Vital Signs: Vital Signs Temp Pulse Resp BP Pulse Ox O2 Del Method 98.8 F 75 18 129/70 H 92 Room Air 08/05/22 06:29 08/05/22 06:29 08/05/22 06:29 08/05/22 06:29 08/05/22 06:29 08/05/22 06:29 Oxygen Delivery Method Room Air Weight: 57.6 kg Body Mass Index (BMI) 18.2 Lab / Micro Data Result Diagrams: 08/05/22 05:15 08/05/22 05:15 Labs: Laboratory Results - last 24 hr 08/04/22 21:39: WBC 12.2 H, RBC 3.69 L, Hgb 11.4 L, Hct 35.6 L, MCV 96.5 H, MCH 30.9, MCHC 32.0, RDW Std Deviation 57.1 H, RDW Coeff of Andrew 16.0 H, Plt Count 552 H, MPV 10.8, Neut % (Auto) Not Reportable, Absolute Neuts (auto) 11.5 H, Absolute Lymphs (auto) 0.61 L, Total Counted 100, Neutrophils % (Manual) 93 H, Band Neutrophils % 1, Lymphocytes % (Manual) 5 L, Monocytes % (Manual) 1, Diff Path Review May foll, Atypical Lymphocytes RARE, Platelet Estimate MOD INC, RBC Morphology NORM C+C 08/04/22 21:39: Sodium 138, Potassium 4.3, Chloride 106, Carbon Dioxide 23.0, Anion Gap 9, BUN 45 H, Creatinine 1.61 H, Estim Creat Clear Calc 28.21, Est GFR (MDRD) Af Amer 52 L, Est GFR (MDRD) Non-Af 43 L, BUN/Creatinine Ratio 28.0 H, Glucose 259 H, Calcium 8.8 08/05/22 05:15: WBC 11.4 H, RBC 3.22 L, Hgb 9.9 L, Hct 31.0 L, MCV 96.3 H, MCH 30.7, MCHC 31.9 L, RDW Std Deviation 57.6 H, RDW Coeff of Andrew 16.0 H, Plt Count 521 H, MPV 10.4, Neut % (Auto) Not Reportable, Absolute Neuts (auto) 9.4 H, Absolute Lymphs (auto) 0.34 L, Total Counted 100, Neutrophils % (Manual) 78 H, Band Neutrophils % 5, Lymphocytes % (Manual) 3 L, Monocytes % (Manual) 9, Metamyelocytes % 1, Myelocytes % 4 H, Diff Path Review May foll, Platelet Estimate MOD INC, Anisocytosis 1+, Macrocytosis RARE 08/05/22 05:15: Sodium 140, Potassium 4.1, Chloride 109 H, Carbon Dioxide 23.0, Anion Gap 8, BUN 42 H, Creatinine 1.54 H, Estim Creat Clear Calc 27.53, Est GFR (MDRD) Af Amer 55 L, Est GFR (MDRD) Non-Af 46 L, BUN/Creatinine Ratio 27.3 H, Glucose 188 H, Calcium 8.3 L 08/05/22 05:15: PT 17.4 H, INR 1.5, APTT 39.4 H 08/05/22 05:15: Hemoglobin A1c 6.2 H 08/05/22 05:15: Blood Type B NEGATIVE, Antibody Screen NEGATIVE Radiography Diagnostic Testing: Radiology Impression Femur X-Ray 08/04/22 22:00 IMPRESSION: Acute nondisplaced intertrochanteric fracture. Electronically Signed: Jd Shaikh MD at 23:07 EST Reading Location ID and State: [employer] / [place] Tel , Service support , Pelvis X-Ray 08/04/22 22:00 IMPRESSION: No acute findings in the pelvis. Electronically Signed: Jd Shaikh MD at 23:17 EST Reading Location ID and State: [employer] / [place] Tel , Service support , Tibia/Fibula X-Ray 08/04/22 22:00 IMPRESSION: 1. No acute or healing fracture or malalignment. 2. Vascular calcifications posteriorly. 3. Soft tissues are without focal abnormalities. Electronically Signed: Jd Shaikh MD at 23:08 EST Reading Location ID and State: [employer] / [place] Tel , Service support , Chest X-Ray 08/04/22 23:14 IMPRESSION: No acute findings in the chest. Electronically Signed: López Carmichael MD at 0:35 EST , Physical Exam Const alert Constitutional Narrative: Knew where he was in the month, thought year was 2019 HEENT head/scalp atraumatic and moist oral mucous membranes Eyes EOMs intact bilaterally Neck supple Resp normal respiratory effort and clear to auscultation bilaterally Cardio regular rate and regular rhythm GI non-distended Extremity Extremity Narrative: Moving all extremities in bed Neuro Neuro Narrative: No overt focal neurological deficits appreciated Psych Psych Narrative: Cooperative Assessment & Plan Assessment/Plan (1) Closed fracture of left hip: PLAN: Plan #Left nondisplaced intertrochanteric fracture After fall at assisted living, fracture seen on x-ray Seen by orthopedics, plan for surgery this afternoon N.p.o. Pain meds PT/OT #?HTN/HLD/CAD status post CABG/history of CVA ? Blood pressures are stable, will continue with his home metoprolol ? Continue with Lipitor ? Continue with aspirin ? 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 Anxiety/depression ? Stable ? Continue with his Zoloft # BPH ? Stable ? Continue with Flomax #Prediabetes A1c 6.2 Not on any home medications for this, given age do not feel insulin is necessary at this time #DVT ppx: SCDs Juany Pineda MD Charges/Coding Visit Charges Inpatient E&M: 79536 Subs Hosp L2
[2022-08-05] MEDS: Metoprolol Tartrate 25 MG Tablet PO ×3 (09:21→21:27)
[2022-08-05] MEDS: Menthol/Lanolin/Calamine/Znox 113 GM Tube 1 APPLIC TOPICAL ×2 (09:22→21:26)
[2022-08-05] MEDS: Clotrimazole/Betamethasone 1 Tube 1 APPLIC TOPICAL (09:23)
[2022-08-05 10:35] LABS: Pathologist Review Reviewed
[2022-08-05 10:35] LABS: Pathologist Review Reviewed
--- NOTE | 2022-08-05 13:26 | PN.ORTHO_ITS ---
Subjective Subjective PAD 1 left hip fracture, pending surgery, seen in pre-op Objective Data Objective Data patient more confused this morning, but alert. Vital Signs: Vital Signs Temp Pulse Resp BP Pulse Ox O2 Del Method 98.8 F 89 18 129/70 H 92 Room Air 08/05/22 06:29 08/05/22 09:21 08/05/22 06:29 08/05/22 06:29 08/05/22 06:29 08/05/22 06:29 Oxygen Delivery Method Room Air Weight: 133 lb 0.995 oz Body Mass Index (BMI) 19.1 Lab / Micro Data Result Diagrams: 08/05/22 05:15 08/05/22 05:15 Labs: Laboratory Results - last 24 hr 08/04/22 21:39: WBC 12.2 H, RBC 3.69 L, Hgb 11.4 L, Hct 35.6 L, MCV 96.5 H, MCH 30.9, MCHC 32.0, RDW Std Deviation 57.1 H, RDW Coeff of Andrew 16.0 H, Plt Count 552 H, MPV 10.8, Neut % (Auto) Not Reportable, Absolute Neuts (auto) 11.5 H, Absolute Lymphs (auto) 0.61 L, Total Counted 100, Neutrophils % (Manual) 93 H, Band Neutrophils % 1, Lymphocytes % (Manual) 5 L, Monocytes % (Manual) 1, Diff Path Review Reviewed, Atypical Lymphocytes RARE, Platelet Estimate MOD INC, RBC Morphology NORM C+C 08/04/22 21:39: Sodium 138, Potassium 4.3, Chloride 106, Carbon Dioxide 23.0, Anion Gap 9, BUN 45 H, Creatinine 1.61 H, Estim Creat Clear Calc 28.21, Est GFR (MDRD) Af Amer 52 L, Est GFR (MDRD) Non-Af 43 L, BUN/Creatinine Ratio 28.0 H, Glucose 259 H, Calcium 8.8 08/05/22 05:15: WBC 11.4 H, RBC 3.22 L, Hgb 9.9 L, Hct 31.0 L, MCV 96.3 H, MCH 30.7, MCHC 31.9 L, RDW Std Deviation 57.6 H, RDW Coeff of Andrew 16.0 H, Plt Count 521 H, MPV 10.4, Neut % (Auto) Not Reportable, Absolute Neuts (auto) 9.4 H, Absolute Lymphs (auto) 0.34 L, Total Counted 100, Neutrophils % (Manual) 78 H, Band Neutrophils % 5, Lymphocytes % (Manual) 3 L, Monocytes % (Manual) 9, Metamyelocytes % 1, Myelocytes % 4 H, Diff Path Review Reviewed, Platelet Estimate MOD INC, Anisocytosis 1+, Macrocytosis RARE 08/05/22 05:15: Sodium 140, Potassium 4.1, Chloride 109 H, Carbon Dioxide 23.0, Anion Gap 8, BUN 42 H, Creatinine 1.54 H, Estim Creat Clear Calc 27.53, Est GFR (MDRD) Af Amer 55 L, Est GFR (MDRD) Non-Af 46 L, BUN/Creatinine Ratio 27.3 H, Glucose 188 H, Calcium 8.3 L 08/05/22 05:15: PT 17.4 H, INR 1.5, APTT 39.4 H 08/05/22 05:15: Hemoglobin A1c 6.2 H 08/05/22 05:15: Blood Type B NEGATIVE, Antibody Screen NEGATIVE Radiography Diagnostic Testing: Radiology Impression Femur X-Ray 08/04/22 22:00 IMPRESSION: Acute nondisplaced intertrochanteric fracture. Electronically Signed: Jd Shaikh MD at 23:07 EST Reading Location ID and State: [employer] / [place] Tel , Service support , Pelvis X-Ray 08/04/22 22:00 IMPRESSION: No acute findings in the pelvis. Electronically Signed: Jd Shaikh MD at 23:17 EST Reading Location ID and State: [employer] / [place] Tel , Service support , Tibia/Fibula X-Ray 08/04/22 22:00 IMPRESSION: 1. No acute or healing fracture or malalignment. 2. Vascular calcifications posteriorly. 3. Soft tissues are without focal abnormalities. Electronically Signed: Jd Shaikh MD at 23:08 EST Reading Location ID and State: [employer] / [place] Tel , Service support , Chest X-Ray 08/04/22 23:14 IMPRESSION: No acute findings in the chest. Electronically Signed: López Carmichael MD at 0:35 EST , Assessment & Plan Assessment/Plan (1) Closed fracture of left hip: PLAN: No changes to h and p, will proceed with ORIF left hip.
[2022-08-05] MEDS: Cefazolin 2 GM in 0.9% Normal Saline 100 ML IV (13:45)
[2022-08-05] MEDS: Bupivacaine 0.25% 30 ML Vial (14:57)
--- NOTE | 2022-08-05 15:08 | OP.PCM_ITS ---
Problems Associated Problem List Diagnoses (1) Closed fracture of left hip: Report of Operation Date of Procedure: 08/05/22 Pre-Operative Diagnosis: left hip fracture intertroch Post-Operative Diagnosis: same Surgery/Procedure Performed:: left hip ORIF long IM nail Surgeon: Bartolome York Type of Anesthesia: General and Local Anesthesiologist: Vasquez Cottrell Estimated Blood Loss (mL): 20 Description of Procedure: Patient brought to the operating room theater.? Placed supine on the fracture table.? Leg in traction and internal rotation.? Non op side leg attached to the mid aspect of the bed with appropriate padding.? SCD on the nonoperative leg.? Peroneal nerve padded.? Perineal post used appropriately padded.? All bony prominences appropriately padded.? 2g iv ancef administered prior to the start of the procedure, and 1g iv TXA.? General anesthesia induced.? Operative extremity prepped and draped in the usual sterile fashion with chlorhexidine- based prep solution allowing over 3 minutes drying time prior to draping.? Shower curtain style drape with Ioban.? Preoperative timeout performed to confirm the site the patient and the surgery. I began by making a small stab insertion site proximal to the greater trochanter inserted the partially-threaded 3.2 mm guidewire at the tip of the trochanter on both AP and lateral radiographs aiming for the lesser trochanter on AP radiograph and down the femoral shaft on the lateral x-ray.? Use a soft tissue protector.? Use the Synthes opening reamer down to the level of the lesser trochanter.? Next I used ball-tipped guidewire with a small curve on the end to pass this down distally to the level of the superior aspect of the patella mid aspect of the femur on both AP and lateral radiographs.? This measured 415 mm so as such I selected a 400 mm long nail.? I reamed up to a size 12.5 mm daria coburn.? I inserted the nail 11 mm diameter with 130 degree neck shaft angle.? I inserted this to the appropriate depth.? I used the drop-down guide.? I remove the ball-tipped guidewire.? I passed a 3.2 mm guidewire up into the center of the femoral neck and head aiming slightly inferior and posterior to subchondral bone.? I used a derotation wire which I removed after insertion of the helical blade.? This measured about 103 mm so as such I reamed to 100 mm.? I inserted the 100 mm helical blade.?I used the compression device to compress across the fracture, as I notice slight distraction 1mm or so at the fracture site. I locked this in place proximally.? Drop-down guide removed. I then turned my attention distally.? Using perfect [place] technique and small stab incisions I passed to lateral to medial fully threaded 5.0 mm cortical screws.? This measured 44 mm distally and 42 mm proximally through the oblong hole and the circular hole in the distal aspect of the nail.? These achieved good purchase.? Final radiographs taken proximally and distally.? I did the near far technique proximally to ensure no screw penetration. Wounds were thoroughly irrigated.? Subcutaneous tissue closed with 2-0 Vicryl sutures and skin with 3-0 Monocryl.? Skin cleaned with wet and dry dressing.? 10 cc of quarter percent bupivacaine instilled in and around the incision sites.? Steri strips applied,. Mepilex silver dressings were then applied.? Patient woken up from the general anesthetic transferred off the operating room table and taken to postanesthetic care unit in stable condition.? All sponge needle instrument counts were correct no complications. Plan to the patient weightbearing as tolerated readmitted under the hospitalist service. xarelto 10mg po OD 30 days for VTE prophylaxis. FU in clinic when discharged. Change dressings at 5 days post op, do not get wet 2 weeks. Grafts/Implants Used: synthes TFN-A Complications none Admit VTE Documentation VTE Present on Admission: No VTE Pharm Prophylaxis ordered?: Yes Procedures Musculoskeletal [id number]-29xxx: Other Procedure See Report
[2022-08-05] MEDS: Metoprolol Tartrate 5 MG/5 ML Vial IV (19:01)
--- NOTE | 2022-08-05 19:25 | NURSING ---
Pt was tachycardic (167); notified physician- ordered IV lopressor. This RN administered IV lopressor. Dr Mackey also said to give oral metoprolol 2200 dose early. Pt's heart heart dropped to 150. This RN notified physician of 150 HR, physician said this was OK and will continue to monitor. This RN relayed message to car shifter nurse.
[2022-08-05] MEDS: Tamsulosin HCl 0.4 MG Capsule PO (21:27)
[2022-08-05] MEDS: Atorvastatin Calcium 20 MG Tablet PO (21:27)
[2022-08-05] MEDS: Aspirin 81 MG TAB.CHEW PO (21:27)
[2022-08-05] MEDS: MELATONIN 10 MG TABLET PO (21:27)
[2022-08-06] VITALS (9 sets, daily range): BP systolic 144–147; BP diastolic 54–61; PULSE 77–91; RESP 20; TEMP 36.9–37.4; O2SAT 91–97
[2022-08-06 04:55] LABS: Hematocrit 32.2 % (40-54); Hemoglobin 9.9 g/dL (13.0-16.5); Mean Corp Hgb Conc 30.7 g/dL (32-36); Mean Corpuscular Hgb 31.2 pg (27.0-32.0); Mean Corpuscular Volume 101.6 fL (80-94); Mean Platelet Vol. 10.7 fl (6.2-12.0); POSITIVE COUNT YES; POSITIVE DIFFERENTIAL YES; POSITIVE MORPHOLOGY YES; Platelet Count 535 K/mm3 (150-450); RBC Distribution Width CV 16.3 % (11.6-14.6); RBC Distribution Width SD 60.5 fl (35.1-43.9); Red Blood Count 3.17 M/mm3 (4.6-6.2); White Blood Count 12.8 K/mm3 (4.4-11.0)
[2022-08-06 05:12] LABS: Differential Indicated MANUAL DIFF
[2022-08-06 05:32] LABS: Anisocytosis 1+; Macrocytosis 2+; Platelet Estimate MOD INC (ADEQ)
[2022-08-06 05:34] LABS: Anion Gap 10 (5-15); BUN 36 mg/dL (7-18); BUN/Creat Ratio 26.9 RATIO (10-20); Calcium,Total 7.8 mg/dL (8.5-10.1); Chloride 115 mmol/L (98-107); Creatinine, Serum 1.34 mg/dL (0.70-1.30); EST Glomerular Filtration Rate 54 mL/min (>60); Est Glom Filt Rate - Afr Amer 65 mL/min (>60); Estimated Creatinine Clearance 33.16 ml/min; Glucose 135 mg/dL (74-106); Potassium 4.4 mmol/L (3.5-5.1); Sodium Level 142 mmol/L (136-145)
[2022-08-06 05:35] LABS: Absolute Neutrophil Count 11.1 X10^3/uL (2.0-7.7)
[2022-08-06 05:36] LABS: Absolute Lymphocyte Count 0.26 X10^3/uL (0.83-4.51); Blast 1 % (0-0); Lymphocyte 2 % (19-41); Monocyte 7 % (0-10); Myelocyte 3 % (0-0); Neutrophil-Segmented 87 % (47-70); Total Cells Counted 100 (MANUAL DIFF)
[2022-08-06] MEDS: 0.9% Normal Saline 1,000 ML 75 ML IV (06:21)
[2022-08-06] MEDS: Ramipril 10 MG Capsule PO (09:47)
[2022-08-06] MEDS: Metoprolol Tartrate 25 MG Tablet PO (09:47)
[2022-08-06] MEDS: Sertraline 50 MG Tablet 25 MG PO (09:47)
[2022-08-06] MEDS: Pyridoxine HCl 100 MG Tablet PO (09:49)
[2022-08-06] MEDS: Clotrimazole/Betamethasone 1 Tube 1 APPLIC TOPICAL (09:49)
[2022-08-06] MEDS: Menthol/Lanolin/Calamine/Znox 113 GM Tube 1 APPLIC TOPICAL (09:49)
[2022-08-06] MEDS: Hydroxyurea 500 MG Capsule PO (09:49)
--- NOTE | 2022-08-06 11:04 | NURSING ---
Aware of Vital Signs Taken by Auto Body Worker Vanessa.
--- NOTE | 2022-08-06 11:55 | CASEMGMT ---
Addendum entered by Viridiana Castillo 08/06/22 12:14: Phone call to Socorro at [facility] and updated on d/c plan to TCU prior to return to [place]. SYLVIA Virk Original Note: Social Work SW met with pt and introduced self and role of SW. Pt states I'm confused. When asked orientation questions pt states he is at [facility] but unable to state why. Pt states his dgt is on her way home from [facility] and gave permission for SW to contact her. Phone call to pt dgt Evelyn Desai and assessment completed. Pt lives in a 2 bedroom apartment at [facility] with his . Pt is able to ambulate independently with a walker and staff assists with bathing and dressing. Dgt states that pt does have memory issues and has been having falls recently. SW discussed difference between [place] with home health and SNF. Pt dgt agreeable to SNF. A list of SNF providers including quality and resource use data and consistent with the patient?s preferred geographic region, medical needs, and insurance network were reviewed from the [employer] Guide. Pt dgt preferred provider is [facility]. SW informed that written list of options will be left in pt room. Referral made to TCU and they are able to accept pt. Precert to be started at this time. Pt and Pt dgt updated that TCU can accept and both agreeable to discharge plan. Plan: TCU, pending precert Shona WARD
--- NOTE | 2022-08-06 12:15 | CASEMGMT ---
Social Work Pt dgt confirms pt does have a living will and health care POA naming his dgt Evelyn Kellerstephanie. SW informed Evelyn that documents are not on file at [facility] and requested they be brought in to be scanned into EMR. SYLVIA Virk
--- NOTE | 2022-08-06 12:44 | PN.HOSP_ITS ---
Subjective Subjective Pleasantly confused, reports he feels unsteady on his feet and is slightly cold right now. Mild pain, no other complaints at this time Objective Data Objective Data Vital Signs: Vital Signs Temp Pulse Resp BP Pulse Ox O2 Del Method O2 Flow Rate 99.3 F H 79 20 H 144/54 H 95 Nasal Cannula 2 08/06/22 09:15 08/06/22 12:37 08/06/22 09:15 08/06/22 09:15 08/06/22 09:15 08/06/22 09:15 08/06/22 11:48 Oxygen Flow Rate (L/min) 2 Oxygen Delivery Method Nasal Cannula Weight: 60.356 kg Body Mass Index (BMI) 19.1 Intake & Output: Intake and Output for Last 24 Hours 08/04/22 08/05/22 08/06/22 23:59 23:59 23:59 Intake Total 1220 / 1420 1272.5 / 1272.5 Balance 1220 / 1420 1272.5 / 1272.5 Lab / Micro Data Result Diagrams: 08/06/22 04:01 08/06/22 04:01 Labs: Laboratory Results - last 24 hr 08/06/22 04:01: WBC 12.8 H, RBC 3.17 L, Hgb 9.9 L, Hct 32.2 L, MCV 101.6 H D, MCH 31.2, MCHC 30.7 L, RDW Std Deviation 60.5 H, RDW Coeff of Andrew 16.3 H, Plt Count 535 H, MPV 10.7, Neut % (Auto) Not Reportable, Absolute Neuts (auto) 11.1 H, Absolute Lymphs (auto) 0.26 L, Total Counted 100, Neutrophils % (Manual) 87 H , Lymphocytes % (Manual) 2 L, Monocytes % (Manual) 7, Myelocytes % 3 H, Blast Cells % 1 H*, Diff Path Review January, Platelet Estimate MOD INC, Anisocytosis 1+, Macrocytosis 2+ 08/06/22 04:01: Sodium 142, Potassium 4.4, Chloride 115 H, Carbon Dioxide 17.0 L , Anion Gap 10, BUN 36 H, Creatinine 1.34 H, Estim Creat Clear Calc 33.16, Est GFR (MDRD) Af Amer 65, Est GFR (MDRD) Non-Af 54 L, BUN/Creatinine Ratio 26.9 H, Glucose 135 H, Calcium 7.8 L Radiography Diagnostic Testing: Radiology Impression Hip/Pelvis X-Ray 08/05/22 06:30 IMPRESSION: Please correlate with clinical service. Electronically Signed: Brien Mckeon MD at 17:27 EST Reading Location ID and State: [address] [place] [address] , Service support , Physical Exam Const alert Constitutional Narrative: Thought he was at [facility] and the year is 2001 HEENT head/scalp atraumatic and moist oral mucous membranes Eyes EOMs intact bilaterally Neck supple Resp normal respiratory effort and clear to auscultation bilaterally Cardio regular rate and regular rhythm GI non-distended Extremity Extremity Narrative: Moving all extremities in bed Neuro Neuro Narrative: No overt focal neurological deficits appreciated Psych Psych Narrative: Cooperative Assessment & Plan Assessment/Plan (1) Closed fracture of left hip: PLAN: Plan #Left nondisplaced intertrochanteric fracture After fall at assisted living, fracture seen on x-ray Seen by orthopedics, plan for surgery this afternoon N.p.o. Pain meds PT/OT 08/06: Status post ORIF of the left hip postop day 1. Spoke with case management, currently working on pre-CERT for TCU. Per report mental status is at baseline, would be okay for TCU when approved #?HTN/HLD/CAD status post CABG/history of CVA ? Blood pressures are stable, will continue with his home metoprolol ? Continue with Lipitor ? Continue with aspirin ? 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 Anxiety/depression ? Stable ? Continue with his Zoloft # BPH ? Stable ? Continue with Flomax #Prediabetes A1c 6.2 Not on any home medications for this, given age do not feel insulin is necessary at this time #DVT ppx: SCDs Juany Pineda MD Charges/Coding Visit Charges Inpatient E&M: 73668 Subs Hosp L2
--- NOTE | 2022-08-06 13:29 | PN.ORTHO_ITS ---
Subjective Subjective He is doing well this morning postoperative day 1 left hip IM nail for intertrochanteric hip fracture. He feels a little bit cold. Otherwise not complaining about any pain in the foot. He is more alert today. Had a conversation about his Ranjan as well as his granddaughter Evelyn. Objective Data Objective Data The dressings are in place they are clean and dry. Normal neurovascular status of the foot able to dorsiflex and plantarflex the foot. He is sitting upright in a chair. Vital Signs: Vital Signs Temp Pulse Resp BP Pulse Ox O2 Del Method O2 Flow Rate 99.3 F H 79 20 H 144/54 H 95 Room Air 2 08/06/22 09:15 08/06/22 12:37 08/06/22 09:15 08/06/22 09:15 08/06/22 09:15 08/06/22 10:30 08/06/22 11:48 Oxygen Flow Rate (L/min) 2 Oxygen Delivery Method Room Air Weight: 133 lb 0.995 oz Body Mass Index (BMI) 19.1 Intake & Output: Intake and Output for Last 24 Hours 08/04/22 08/05/22 08/06/22 23:59 23:59 23:59 Intake Total 1220 / 1420 1272.5 / 1272.5 Balance 1220 / 1420 1272.5 / 1272.5 Lab / Micro Data Result Diagrams: 08/06/22 04:01 08/06/22 04:01 Labs: Laboratory Results - last 24 hr 08/06/22 04:01: WBC 12.8 H, RBC 3.17 L, Hgb 9.9 L, Hct 32.2 L, MCV 101.6 H D, MCH 31.2, MCHC 30.7 L, RDW Std Deviation 60.5 H, RDW Coeff of Andrew 16.3 H, Plt Count 535 H, MPV 10.7, Neut % (Auto) Not Reportable, Absolute Neuts (auto) 11.1 H, Absolute Lymphs (auto) 0.26 L, Total Counted 100, Neutrophils % (Manual) 87 H , Lymphocytes % (Manual) 2 L, Monocytes % (Manual) 7, Myelocytes % 3 H, Blast Cells % 1 H*, Diff Path Review May , Platelet Estimate MOD INC, Anisocytosis 1+, Macrocytosis 2+ 08/06/22 04:01: Sodium 142, Potassium 4.4, Chloride 115 H, Carbon Dioxide 17.0 L , Anion Gap 10, BUN 36 H, Creatinine 1.34 H, Estim Creat Clear Calc 33.16, Est GFR (MDRD) Af Amer 65, Est GFR (MDRD) Non-Af 54 L, BUN/Creatinine Ratio 26.9 H, Glucose 135 H, Calcium 7.8 L Radiography Diagnostic Testing: Radiology Impression Hip/Pelvis X-Ray 08/05/22 06:30 IMPRESSION: Please correlate with clinical service. Electronically Signed: Brien Mckeon MD at 17:27 EST , Assessment & Plan Assessment/Plan (1) Closed fracture of left hip: PLAN: 86-year-old man he is progressing appropriately postoperative day 1. No concerns from his nurse who I spoke with directly. [place] of the [place] the next 2 weeks however I am reachable through the electronic medical record. I would like the patient to follow-up in about 2 weeks. It sounds like also they would plan to transfer the patient to the transitional care unit based on insurance.
[2022-08-06 14:22] LABS: Pathologist Review Reviewed
--- NOTE | 2022-08-06 14:24 | TREXTCAR_ITS ---
Diet Diet Order/Speech Therapy: 08/06/22 13:36 Diet: Regular - General Is pt able to select menu?: Yes Routine Orders/Code Status Suppository Type: Dulcolax 10mg Suppository Frequency: Daily PRN O2 Frequency: PRN Keep PO Greater than or Equal to (%): 92 Wound(s) right buttock: Wound Type: Pressure Injury LEFT HIP: Wound Type: Surgical Incision LEFT LOWER LEG: Wound Type: Surgical Incision Therapies Weight Bearing: Full weight bearing Physical Therapy: Eval and Treat Occupational Therapy: Eval and Treat Problem/Diagnosis (1) Closed fracture of left hip: Status: Acute Code(s): S72.002A - Fracture of unspecified part of neck of left femur, initial encounter for closed fracture Plan #Left nondisplaced intertrochanteric fracture #?HTN/HLD/CAD status post CABG/history of CVA #CKD stage IIIb #?Left lower lung mass #? Anxiety/depression # BPH #Prediabetes Mr. Winn is an 86-year-old male with a history of coronary artery disease, hypertension, kidney stones, NPH, and type 2 diabetes mellitus who presented to [facility] 08/04/2022 after a fall at his assisted living. He thought at that time that he lost his balance and does not remember tripping over anything. No loss of consciousness. Upon arrival x-ray showed left nondisplaced intertrochanteric fracture. Orthopedic surgery consulted and he had ORIF of the left hip on 08/05. Postop he did have a brief spurt of tachycardia that appeared to be SVT but converted and has done well on his home metoprolol. Does have some confusion at baseline, per report he is presently at baseline. Did have slightly elevated white count on admission which is felt to be reactionary and there is no signs or symptoms of infection. Charged to TCU on through September 05 and will need to follow-up with orthopedic surgery in 2 weeks. Allergies/Procedures Done in Hospital Allergies No Known Allergies Allergy (Verified 08/04/22 21:12) Type of Care/Length of Stay Estimated LOS: Convalescent Care Less Than 30 days Type of Care Needed: Intermediate Rehab Potential: Fair Prognosis: Fair Additional Orders/Day of Discharge Day of Discharge: 08/06/22 Dietary and Speech Recommendations Dietitian Recommendations/Changes: Recommend advance PO post-op as tolerated to 1600 calorie/consistent carbohydrate diet with cardiac diet restriction only as needed. Will d/c ensure plus high protein w/ medpass for now. Recommend addition of Glucerna Shake with medpass as diet advanced from NPO. Ryan BID for wound healing as indicated. Discharge Plan Admission Admit Date/Time: 08/04/22 23:24 Primary Reason for Your Visit: Fall with hip fracture Attending Provider: Juany Pineda Primary Care Provider: Gabriel Mares Consulting Providers: Bartolome York ; Pipo Mackey Instructions Patient Instructions: After Hip Surgery- Getting Dressed Additional Instructions / Restrictions: ?You will need follow-up with orthopedic surgery in 2 weeks ? You will need to continue on Xarelto through September 05 ?Continue your other home medications as prescribed -Please call your primary care provider's office upon discharge to schedule a hospital follow up within 1 week. -For any concerning signs or symptoms please call 911 or proceed to the nearest emergency department Discharge Orders/Prescriptions Prescriptions: New Xarelto 10 mg Tablet 10 mg PO DINNER 30 Days Qty: 30 0RF Continued hydroxyurea [Hydrea] 500 mg capsule 500 mg PO MOTUWETHFR Label Comments: 500 mg PO 1 tablet by mouth 5 days per week Rx Instructions: 500 mg PO 1 tablet by mouth 5 days per week atorvastatin 20 MG tablet 20 mg PO QHS Label Comments: cholesterol lowering aspirin 81 MG tablet,chewable 81 mg PO QHS Label Comments: heart health ramipril 5 MG capsule 10 mg PO DAILY Label Comments: blood pressure tamsulosin 0.4 mg capsule 0.4 mg PO QHS pyridoxine (vitamin B6) [Vitamin B-6] 100 mg Tablet 100 mg PO DAILY metoprolol tartrate 25 mg tablet 25 mg PO BID clotrimazole-betamethasone 1-0.05 % Cream 1 applic topical DAILY Qty: 15 0RF Protocol: *Topical Application Instructions APPLICATION INSTRUCTIONS: apply to L foot, do not apply in between toes Rx Instructions: apply to affected left foot area twice daily loperamide 2 mg Tablet 2 mg PO Q6H PRN (Reason: Constipation) sertraline 25 mg tablet 25 mg PO DAILY melatonin 10 mg Tablet 10 mg PO QHS Referrals / Follow Up: Bartolome York MD [Med Staff - Active Staff] - Within 2 Weeks (Please call to schedule your 2-week hospital follow-up appointment upon discharge) Gabriel Mares MD [Primary Care Provider] - Within 1 Week Disposition Disposition (needs filled in before D/C Order can be placed): NonSkilled NH/Intermed Care
--- NOTE | 2022-08-06 14:39 | PCM.DC.SUM ---
Providers Date of Admission: 08/04/22 Date of Discharge: 08/06/22 Primary Care Physician: Dr. Gabriel Mares MD Consultations 08/05/22 00:34 Consult: Orthopedics Routine Consulting Provider: Bartolome York Reason for Consult: Left femur fracture EMERGENT Consult: No MD Notified: Yes Date Notified: 08/04/22 Time Notified: 23:28 Method of Notification: ED Physician Initiated Reason For Visit: LEFT HIP FRACTURE Diagnosis Discharge Diagnosis (1) Closed fracture of left hip: Status: Acute Code(s): S72.002A - Fracture of unspecified part of neck of left femur, initial encounter for closed fracture Plan #Left nondisplaced intertrochanteric fracture #?HTN/HLD/CAD status post CABG/history of CVA #CKD stage IIIb #?Left lower lung mass #? Anxiety/depression # BPH #Prediabetes Medications at Discharge Home Medications aspirin 81 mg chewable tablet 81 mg PO QHS heart health 04/02/16 atorvastatin 20 mg tablet 20 mg PO QHS choleterol 04/02/16 ramipril 5 mg capsule 10 mg PO DAILY blood pressure 04/02/16 hydroxyurea 500 mg capsule (Hydrea) 500 mg PO MOTUWETHFR Check with primary doctor 12/08/17 tamsulosin 0.4 mg capsule 0.4 mg PO QHS bladder 10/19/21 metoprolol tartrate 25 mg tablet 25 mg PO BID Check with primary doctor 11/16/21 pyridoxine (vitamin B6) 100 mg tablet (Vitamin B-6) 100 mg PO DAILY Check with primary doctor 11/16/21 clotrimazole-betamethasone 1 %-0.05 % topical cream 1 applic topical DAILY #15 grams 11/18/21 loperamide 2 mg tablet 2 mg PO Q6H PRN Constipation 08/04/22 melatonin 10 mg tablet 10 mg PO QHS 08/04/22 sertraline 25 mg tablet 25 mg PO DAILY 08/04/22 rivaroxaban 10 mg tablet (Xarelto) 10 mg PO DINNER 30 days #30 tabs 08/06/22 Hospital Course Operations - (Left hip ORIF) Summary of Care Provided Minutes Spent on Discharge: 32 Hospital Course: Mr. Winn is an 86-year-old male with a history of coronary artery disease, hypertension, kidney stones, NPH, and type 2 diabetes mellitus who presented to [facility] 08/04/2022 after a fall at his assisted living. He thought at that time that he lost his balance and does not remember tripping over anything. No loss of consciousness. Upon arrival x-ray showed left nondisplaced intertrochanteric fracture. Orthopedic surgery consulted and he had ORIF of the left hip on 08/05. Postop he did have a brief spurt of tachycardia that appeared to be SVT but converted and has done well on his home metoprolol. Does have some confusion at baseline, per report he is presently at baseline. Did have slightly elevated white count on admission which is felt to be reactionary and there is no signs or symptoms of infection. Charged to TCU on through September 05 and will need to follow-up with orthopedic surgery in 2 weeks. Physical Exam Const alert Constitutional Narrative: Thought he was at [facility] and the year is 2001 HEENT head/scalp atraumatic and moist oral mucous membranes Eyes EOMs intact bilaterally Neck supple Resp normal respiratory effort and clear to auscultation bilaterally Cardio regular rate and regular rhythm GI non-distended Extremity Extremity Narrative: Moving all extremities in bed Neuro Neuro Narrative: No overt focal neurological deficits appreciated Psych Psych Narrative: Cooperative Weight / BMI Weight Weight: 60.356 kg Body Mass Index (BMI) 19.1 ABG / Lab / Microbiology Data Result Diagrams: 08/06/22 04:01 08/06/22 04:01 Laboratory: Laboratory Results - last 24 hr 08/06/22 04:01: WBC 12.8 H, RBC 3.17 L, Hgb 9.9 L, Hct 32.2 L, MCV 101.6 H D, MCH 31.2, MCHC 30.7 L, RDW Std Deviation 60.5 H, RDW Coeff of Andrew 16.3 H, Plt Count 535 H, MPV 10.7, Neut % (Auto) Not Reportable, Absolute Neuts (auto) 11.1 H, Absolute Lymphs (auto) 0.26 L, Total Counted 100, Neutrophils % (Manual) 87 H, Lymphocytes % (Manual) 2 L, Monocytes % (Manual) 7, Myelocytes % 3 H, Blast Cells % 1 H*, Diff Path Review Reviewed, Platelet Estimate MOD INC, Anisocytosis 1+, Macrocytosis 2+ 08/06/22 04:01: Sodium 142, Potassium 4.4, Chloride 115 H, Carbon Dioxide 17.0 L, Anion Gap 10, BUN 36 H, Creatinine 1.34 H, Estim Creat Clear Calc 33.16, Est GFR (MDRD) Af Amer 65, Est GFR (MDRD) Non-Af 54 L, BUN/Creatinine Ratio 26.9 H, Glucose 135 H, Calcium 7.8 L Radiography Diagnostic Testing: Radiology Impression Hip/Pelvis X-Ray 08/05/22 06:30 IMPRESSION: Please correlate with clinical service. Electronically Signed: Brien Mckeon MD at 17:27 EST Reading Location ID and State: [address] [place] [address] , Service support , Meaningful Use Info Meaningful Use Diagnoses (Choose all that apply): None applicable Discharge Plan Admission Admit Date/Time: 08/04/22 23:24 Primary Reason for Your Visit: Fall with hip fracture Attending Provider: Juany Pineda Primary Care Provider: Gabriel Mares Consulting Providers: Bartolome York ; Pipo Mackey Instructions Patient Instructions: After Hip Surgery- Getting Dressed Additional Instructions / Restrictions: ?You will need follow-up with orthopedic surgery in 2 weeks ? You will need to continue on Xarelto through September 05 ?Continue your other home medications as prescribed -Please call your primary care provider's office upon discharge to schedule a hospital follow up within 1 week. -For any concerning signs or symptoms please call 911 or proceed to the nearest emergency department Discharge Orders/Prescriptions Prescriptions: New Xarelto 10 mg Tablet 10 mg PO DINNER 30 Days Qty: 30 0RF Continued hydroxyurea [Hydrea] 500 mg capsule 500 mg PO MOTUWETHFR Label Comments: 500 mg PO 1 tablet by mouth 5 days per week Rx Instructions: 500 mg PO 1 tablet by mouth 5 days per week atorvastatin 20 MG tablet 20 mg PO QHS Label Comments: cholesterol lowering aspirin 81 MG tablet,chewable 81 mg PO QHS Label Comments: heart health ramipril 5 MG capsule 10 mg PO DAILY Label Comments: blood pressure tamsulosin 0.4 mg capsule 0.4 mg PO QHS pyridoxine (vitamin B6) [Vitamin B-6] 100 mg Tablet 100 mg PO DAILY metoprolol tartrate 25 mg tablet 25 mg PO BID clotrimazole-betamethasone 1-0.05 % Cream 1 applic topical DAILY Qty: 15 0RF Protocol: *Topical Application Instructions APPLICATION INSTRUCTIONS: apply to L foot, do not apply in between toes Rx Instructions: apply to affected left foot area twice daily loperamide 2 mg Tablet 2 mg PO Q6H PRN (Reason: Constipation) sertraline 25 mg tablet 25 mg PO DAILY melatonin 10 mg Tablet 10 mg PO QHS Referrals / Follow Up: Bartolome York MD [Med Staff - Active Staff] - Within 2 Weeks (Please call to schedule your 2-week hospital follow-up appointment upon discharge) Gabriel Mares MD [Primary Care Provider] - Within 1 Week Disposition Disposition (needs filled in before D/C Order can be placed): NonSkilled NH/Intermed Care Charges/Coding Visit Charges Inpatient E&M: 59591 Disch Hosp
--- NOTE | 2022-08-06 15:01 | CASEMGMT ---
Social Work Preauthorization obtained for pt to admit to TCU. Physician updated and pt is ready for discharge today. Orders faxed to TCU. Phone call to pt dgt and updated on discharge plan. Dgt agreeable. Nursing updated. Plan: TCU skilled level of care SYLVIA Clarke
[2022-08-06] MEDS: Rivaroxaban 10 MG Tablet PO (17:17)
--- NOTE | 2022-08-06 18:35 | NURSING ---
Report given to Shanice LEMUS in TCU at this time.
== END 2022-08-06 18:55 | disposition intermediate care facility (04) | DRG 481 ==
LOC: ED 23:23 → MS3 08-05 00:11
PROVIDERS: Anesthesiology; Orthopaedic Surgery Sports Medicine; Admitting Provider Family Medicine; Emergency Provider Emergency Medicine; PCP Internal Medicine; Visit Provider Internal Medicine
PROC: 0QS736Z Reposition Left Upper Femur with Intramedullary Internal Fixation Device, Percutaneous Approach (ICD-10-PCS; principal; 2022-08-05 12:30)
DX: S72.145A Nondisplaced intertrochanteric fracture of left femur, initial encounter for closed fracture (principal); I47.1 Supraventricular tachycardia; N18.32 Chronic kidney disease, stage 3b; E78.5 Hyperlipidemia, unspecified; I25.10 Atherosclerotic heart disease of native coronary artery without angina pectoris; I12.9 Hypertensive chronic kidney disease with stage 1 through stage 4 chronic kidney disease, or unspecified chronic kidney disease; Z87.891 Personal history of nicotine dependence; Z79.82 Long term (current) use of aspirin; Z86.73 Personal history of transient ischemic attack (TIA), and cerebral infarction without residual deficits; F32.A Depression, unspecified; N40.0 Benign prostatic hyperplasia without lower urinary tract symptoms; Z95.1 Presence of aortocoronary bypass graft; R91.8 Other nonspecific abnormal finding of lung field; R73.03 Prediabetes
CPT/HCPCS: 36415; 71045; 72170; 73501; 73552; 73590; 76000; 80048; 83036; 85025; 85610; 85730; 86850; 86900; 86901; 87426; 93005; 94762; 97162; 97166; 97802; 99285; C1776; J7030; A4216; J2405

== ENCOUNTER 2022-08-06 19:03 | Inpatient (IN) | payer MEDICARE, SELFPAY ==
[2022-08-06 19:08] VITALS: BP 143/56; PULSE 93; RESP 16; TEMP 36.4; O2SAT 95
[2022-08-06 19:30] VITALS: PULSE 93; RESP 16; O2SAT 95; BMI 19.3
--- NOTE | 2022-08-06 21:51 | HP.PCM_ITS ---
HPI - General General Date of Admission: 08/06/22 Date of Service: 08/07/22 Chief Complaint: Here for rehabilitation. HPI Narrative 08/04/2022 SHERRY MOHAMUD, is a 86 Male who presents to [facility] Emergency Department with fall. 08/04/2022 EKG sinus rhythm with premature supraventricular contractions, otherwise normal EKG. Fall this week, from assisted living. Unable to bear weight, falls frequently. BUN 45, Creatinine 1.61. X-ray showed left hip fracture. 08/04/2022 Admit to Hospital. Consult orthopedics. Prepare for surgery. PT/OT. 08/05/2022 Slight left leg pain, intermittent confusion. Gentle IV fluids for CKD stage 3b. 08/05/2022 Dr. York performed left hip ORIF long IM nail. 08/06/2022 Pleasantly confused. Plan TCU. 08/06/2022 Admit to TCU with debility, here for rehabilitation, strengthening, prior to discharge home with . [facility] Medical History Atherosclerotic heart disease of [place] coronary artery without angina pectoris Community acquired pneumonia Coronary artery disease Diabetes Diabetic foot infection Essential thrombocytosis Former smoker High cholesterol History of stress test HLD (hyperlipidemia) HTN (hypertension) Hydrocephalus Ischemic cardiomyopathy Kidney stones Lung mass Mass of lower lobe of left lung Myocardial infarct Normal pressure hydrocephalus Type II diabetes mellitus Home Medications aspirin 81 mg chewable tablet 81 mg PO QHS heart health 04/02/16 [History Last Taken 10/18/21] atorvastatin 20 mg tablet 20 mg PO QHS choleterol 04/02/16 [History Last Taken 10/18/21] ramipril 5 mg capsule 10 mg PO DAILY blood pressure 04/02/16 [History Last Taken 10/19/21] hydroxyurea 500 mg capsule (Hydrea) 500 mg PO MOTUWETHFR Check with primary doctor 12/08/17 [History Last Taken 10/17/21] tamsulosin 0.4 mg capsule 0.4 mg PO QHS bladder 10/19/21 [History Last Taken 10/18/21] metoprolol tartrate 25 mg tablet 25 mg PO BID Check with primary doctor 11/16/21 [History Last Taken Unknown] pyridoxine (vitamin B6) 100 mg tablet (Vitamin B-6) 100 mg PO DAILY Check with primary doctor 11/16/21 [History Last Taken Unknown] loperamide 2 mg tablet 2 mg PO Q6H PRN Diarrhea 08/04/22 [History Last Taken Unknown] melatonin 10 mg tablet 10 mg PO QHS Insomnia 08/04/22 [History Last Taken Unknown] sertraline 25 mg tablet 25 mg PO DAILY depression 08/04/22 [History Last Taken Unknown] clotrimazole-betamethasone 1 %-0.05 % topical cream 1 applic topical DAILY Check with primary doctor 08/06/22 [History Last Taken Unknown] rivaroxaban 10 mg tablet (Xarelto) 10 mg PO DINNER anti-coagulant 08/06/22 [History Last Taken Unknown] Allergy/AdvReac Type Severity Reaction Status Date / Time No Known Allergies Allergy Verified 08/04/22 21:12 Family History Father CAD (coronary artery disease) Myocardial infarction Mother , age 80+, cause not listed No problems noted. Surgical History History of bronchoscopy History of left heart catheterization S/P CABG x 3 Social History household members: spouse Smoking Status: Former smoker quit date: 09/20/84 pack-years: 20 how long ago did patient quit smoking: Quit ~ 50 years prior, 1 ppd since teen until quit. alcohol intake: never substance use type: does not use ROS Constitutional Constitutional: Denies chills, fever(s) or weight gain ENT HEENT: Denies headache(s), nasal congestion or nasal discharge Cardiovascular Cardiovascular: Denies chest pain or palpitations Respiratory/Chest Respiratory/Chest: Denies cough, excessive phlegm production or shortness of breath with exertion Gastrointestinal Gastrointestinal: Denies abdominal pain, nausea or vomiting Genitourinary Genitourinary: Denies dysuria Musculoskeletal Musculoskeletal: Denies joint pain or joint swelling Integumentary Integumentary: Denies rash or wounds Neurologic Neurologic: Denies focal weakness, numbness or tingling Psychiatric Psychiatric: Denies anxiety, auditory hallucinations, depression, homicidal ideation or suicidal ideation Vital Signs Vital Signs Vital Signs: 08/06/22 19:08 Temperature 97.6 F L Temperature Source Oral Pulse Rate 93 Respiratory Rate 16 Blood Pressure 143/56 H Blood Pressure Mean 85 Pulse Ox 95 Oxygen Delivery Method Nasal Cannula Oxygen Flow Rate (L/min) 2 Weight Weight: 61.008 kg Body Mass Index (BMI) 19.3 Physical Exam Const alert General Appearance: cooperative HEENT normocephalic Eyes PERRL and EOMs intact bilaterally Neck supple, no JVD and no carotid bruits Resp normal respiratory effort, normal air movement and clear to auscultation bilaterally Cardio regular rate and regular rhythm GI normal to inspection, nondistended, normoactive bowel sounds, non-tender and non-distended Extremity normal capillary refill General Extremity: Negative for edema Skin no rashes or lesions noted General Skin Exam: no breakdown Psych affect normal Appearance: appropriate Results Lab / Micro Data Result Diagrams: 08/07/22 05:20 08/07/22 05:20 Assessment & Plan Assessment/Plan (1) Debility: (2) Frequent falls: (3) Closed left hip fracture: (4) Chronic kidney disease, stage 3b: (5) Coronary artery disease: (6) Hyperlipidemia: (7) BPH (benign prostatic hyperplasia): (8) Insomnia: (9) Depression: (10) Thrombocytosis: PLAN: Plan 86 year old male with below past medical history hospitalized for left hip fracture, underwent left hip ORIF nail 08/05/[address] York, admitted to TCU with debility, here for rehabilitation prior to discharge home with . * Debility - PT/OT. * Pain - Tylenol 1000mg q8, Tramadol 50mg q6h prn pain (1-5), Oxycodone 2.5mg q4h prn pain (6-10). * Bowel - Miralax 17gm daily, senna/colace 2 tablets bid, Dulcolax 10mg pr daily prn, MOM 30ml po daily prn. * Adult immunization - Administer pneumonia vaccine, covid19 vaccine, flu va ccine as appropriate. * DVT prophylaxis - Xarelto 10mg daily thru 09/05/2022. * Coronary artery disease - Metoprolol 25mg bid, Xarelto 10mg daily thru 09/05/2022, Aspirin 81mg daily starting 09/06/2022. * Hyperlipidemia - Atorvastatin 20mg qhs. * Tinea Corporis - Lotrisone topical daily. * Thrombocytosis - Hydrea 500mg 5 days/week. * Nutrition - Ryan 1 packet bidcm. * Insomnia - Melatonin 10mg qhs. * Skin irritation - Calmoseptine topical bid. * Vitamin B6 deficiency - B6 100mg daily. * Depression - Sertraline 25mg daily, stable chronic senior living use, GDR not recommended. * BPH - Tamsulosin 0.4mg daily.
[2022-08-06] MEDS: Hydroxyurea 500 MG Capsule PO (22:02)
[2022-08-06] MEDS: Menthol/Lanolin/Calamine/Znox 113 GM Tube 1 APPLIC TOPICAL (22:02)
[2022-08-06] MEDS: Tamsulosin HCl 0.4 MG Capsule PO (22:03)
[2022-08-06] MEDS: Aspirin 81 MG TAB.CHEW PO (22:03)
[2022-08-06] MEDS: MELATONIN 10 MG TABLET PO (22:03)
[2022-08-06] MEDS: Atorvastatin Calcium 20 MG Tablet PO (22:04)
[2022-08-07 05:43] LABS: Hematocrit 25.8 % (40-54); Hemoglobin 8.3 g/dL (13.0-16.5); Mean Corp Hgb Conc 32.2 g/dL (32-36); Mean Corpuscular Hgb 31.3 pg (27.0-32.0); Mean Corpuscular Volume 97.4 fL (80-94); Mean Platelet Vol. 10.6 fl (6.2-12.0); POSITIVE COUNT YES; POSITIVE DIFFERENTIAL YES; POSITIVE MORPHOLOGY YES; Platelet Count 488 K/mm3 (150-450); RBC Distribution Width CV 16.3 % (11.6-14.6); RBC Distribution Width SD 58.2 fl (35.1-43.9); Red Blood Count 2.65 M/mm3 (4.6-6.2); White Blood Count 8.9 K/mm3 (4.4-11.0)
[2022-08-07 05:52] LABS: Differential Indicated MANUAL DIFF
[2022-08-07 06:09] LABS: Eosinophil 1 % (0-5); Lymphocyte 5 % (19-41); Metamyelocyte 1 % (0-1); Monocyte 5 % (0-10); Neutrophil-Segmented 88 % (47-70); Total Cells Counted 100 (MANUAL DIFF)
[2022-08-07 06:10] LABS: Absolute Neutrophil Count 7.9 X10^3/uL (2.0-7.7); Neutrophil # 7.92 X10^3/uL (2.7-7.7)
[2022-08-07 06:11] LABS: Absolute Lymphocyte Count 0.45 X10^3/uL (0.83-4.51); Lymphocyte # 0.45 X10^3/ul (0.83-4.51)
[2022-08-07 06:13] LABS: Platelet Estimate MOD INC (ADEQ)
[2022-08-07 06:14] LABS: Anisocytosis 2+; Macrocytosis 1+; Microcytosis 1+
[2022-08-07 06:15] LABS: Polychromasia RARE
[2022-08-07 06:16] LABS: Anion Gap 6 (5-15); BUN 33 mg/dL (7-18); BUN/Creat Ratio 24.8 RATIO (10-20); Calcium,Total 7.6 mg/dL (8.5-10.1); Chloride 112 mmol/L (98-107); Creatinine, Serum 1.33 mg/dL (0.70-1.30); EST Glomerular Filtration Rate 54 mL/min (>60); Est Glom Filt Rate - Afr Amer 65 mL/min (>60); Estimated Creatinine Clearance 33.77 ml/min; Glucose 233 mg/dL (74-106); Potassium 3.6 mmol/L (3.5-5.1); Sodium Level 141 mmol/L (136-145)
[2022-08-07 06:51] VITALS: PULSE 78
[2022-08-07] MEDS: Pyridoxine HCl 100 MG Tablet PO (06:51)
[2022-08-07] MEDS: Sertraline 50 MG Tablet 25 MG PO (06:51)
[2022-08-07] MEDS: Polyethylene Glycol 3350 17 GM PACKET PO (06:51)
[2022-08-07] MEDS: Senna/Docusate Sodium 1 Tablet 2 TABLET PO (06:51)
[2022-08-07] MEDS: Metoprolol Tartrate 25 MG Tablet PO ×2 (06:51→18:11)
[2022-08-07] MEDS: Acetaminophen 500 MG Tablet 1000 MG PO ×3 (06:53→21:49)
[2022-08-07] MEDS: Bisacodyl 10 MG Suppository RC (06:59)
[2022-08-07 07:50] VITALS: O2SAT 95
[2022-08-07] MEDS: Juven (unflavored) Packet 1 PACKET PO ×2 (09:35→18:10)
[2022-08-07] MEDS: Clotrimazole/Betamethasone 1 Tube 1 APPLIC TOPICAL (09:38)
--- NOTE | 2022-08-07 10:54 | NURSING ---
Office Clin Asst Note; Activity Asset: Complete
--- NOTE | 2022-08-07 11:29 | CASEMGMT ---
Social Work Met with patient to complete initial assessment. Introduced self and role. Verified contacts. Discussed code status and MOLST form. Pt confirmed DNR-CCA, no intubation. MOLST placed in Dr folder. Educated to [facility] insurance with NRD 08/12 and continued stay is not guaranteed with each review. Pts goal is to return to [facility] with . SW to ensure [facility] can meet pt's level of care at time of DC. Will continue to follow for DC planning. Kathy Pelaez, [employer] VISITOR SERVICES INFORMATION ASSISTANT
[2022-08-07] MEDS: Tuberculin,Purif.prot.deriv. 50 TU/ML Vial 0.1 ML ID (11:34)
[2022-08-07] MEDS: Pneumococcal Vaccine 20 Valent 0.5 ML Syringe IM (11:35)
[2022-08-07] MEDS: Menthol/Lanolin/Calamine/Znox 113 GM Tube 1 APPLIC TOPICAL ×2 (11:38→21:48)
[2022-08-07] MEDS: Nystatin Powder 15gm Bottle 1 APPLIC TOPICAL ×2 (11:42→21:48)
--- NOTE | 2022-08-07 13:33 | NURSING ---
PT OFF UNIT VIA BED TO RADIOLOGY, INCONT CARE PROVIDED.
[2022-08-07 13:51] VITALS: BP 135/64; PULSE 76; RESP 18; TEMP 36.6; O2SAT 95
[2022-08-07 14:19] VITALS: BP 148/53; PULSE 77; RESP 14; TEMP 36.4; O2SAT 94
--- NOTE | 2022-08-07 14:25 | WOUNDNOTE ---
Was consulted to assess open area to buttocks. pt is currently off the unit for a cookie swallow. discussed with ALLAN Rice and states she had just applied some calmoseptine.
--- NOTE | 2022-08-07 14:35 | ST.MBS ---
Modified Barium Swallow - Patient Information Study Date: 08/07/22 Study Time: 13:30 Direct Billable Minutes: 150 Total Minutes procedure & reportin Diagnosis: Thrombocytosis (D75.839), Debility (R53.81). Referring Physician: Rafita Helms Chi Reason for Referral: Objectively assess swallow function, risk for aspiration, and determine recommendations for least restrictive diet textures and compensatory strategies to improve safety of swallow Medical History: Agustin Winn is a 86 Male who presents to [facility] Emergency Department with fall from [facility]. Unable to bear weight, falls frequently. X-ray showed left hip fracture. Dr. York performed left hip ORIF long IM nail. Admit to TCU with debility, here for rehabilitation, strengthening, prior to discharge home with . 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 Hx of postobstructive pneumonia / community acquired pneumonia. Nursing reports poor oral phase, coughing w/ liquids and difficulty w/ medications warranting MBSS. Patient w/ poor dentition at this date - missing and broken teeth. Oral cavity bleeding. Current Diet Ordered: Regular textures / thin liquids Dentition: Natural Teeth, Decay, Missing Teeth Mental Status: Impaired Respiratory Status: Oxygenating on Room Air - Penetration-Aspiration Scale Penetration-Aspiration Scale: OBJECTIVE ASSESSMENT OF SWALLOW FUNCTION (QUANTITATIVE ? PER TRIAL): PENETRATION / ASPIRATION SCALE (TOLBERT): 1 = does not enter airway 2 = enters airway/above vocal folds/ejected 3 = enters airway/above vocal folds/not ejected 4 = enters airway/contacts vocal folds/ejected 5 = enters airway/contacts vocal folds/not ejected 6 = enters airway/below vocal folds/ejected 7 = enters airway/below vocal folds/not ejected despite effort 8 = enters airway/below vocal folds/no effort VIDEOFLOROSCOPIC SCALE SCORE (TOLBERT): Grade I = aspiration of material that has penetrated into the laryngeal vestibule, intact cough reflex Grade II = aspiration < 10 % of the bolus, intact cough reflex Grade III = aspiration of < 10 % of the bolus, reduced cough reflex or aspiration of > 10 % of the bolus, intact cough reflex Grade IV = aspiration of > 10 % of the bolus, reduced cough reflex - Penetration-Aspiration Scale Score Thin Liquid via teaspoon Result: 2= enter airway/above vocal folds/ejected Thin Liquid via small single sip from cup Result: 1= does not enter airway [place] Thick Liquid via small single sip from cup Result: 2= enter airway/above vocal folds/ejected [place] Thick Liquid via small single sip from cup Trial 2 Result: 2= enter airway/above vocal folds/ejected [place] Thick Liquid Result: 1= does not enter airway Pudding Result: 3= enters airways/above vocal folds/not ejected Pudding Trial 2 Result: 2= enter airway/above vocal folds/ejected Cookie Result: 2= enter airway/above vocal folds/ejected Thin Liquid via small single sip from cup Trial 2 Result: 2= enter airway/above vocal folds/ejected Thin Liquid via sequential sips from straw Result: 3= enters airways/above vocal folds/not ejected - Oral Phase Labial Seal: No Labial Escape Tongue Control During Bolus Hold: Escape to lateral buccal cavity/floor of mouth Bolus Preparation/Mastication: Disorganized chewing/mashing with solid pieces of bolus unchewed Bolus Transport/Lingual Motion: Slowed tongue motion Oral Residue: Residue collection on oral structures - Pharyngeal Phase Initiation of Pharyngeal Swallow: Bolus head at posterior laryngeal surgace of epiglottis Soft Palate Elevation: No bolus between soft palate and pharyngeal wall Laryngeal Elevation: Partial superior movement thyroid cart/partial apprx aryt-epig petiole Anterior Hyoid Excursion: Partial anterior movement Epiglottic Movement: Partial inversion Laryngeal Vestibule Closure at Height of Swallow: Incomplete; narrow column of air/contrast in laryngeal vestibule Pharyngeal Stripping Wave: Present - diminished Pharyngoesophageal Segment Opening: Parital distension and partial duration; parital obstruction of flow Tongue Base Retraction: Narrow column of contrast between tongue base & post. pharyngeal wall Pharyngeal Residue: Collection of residue within or on pharyngeal structures - Treatment Strategies Effects of treatment strategies attemped:: effortful swallow = somewhat effective cough and re-swallow = somewhat effective cough and re-swallow w/ effortful swallow = somewhat effective - Diagnosis/Impression Diagnosis: moderate oropharyngeal dysphagia (R13.12) Impression: Oral phase primarily marked by... - moderate mastication inefficiency likely d/t poor dentition - suboptimal lingual control contributing to poor oral clearance - oral phase swallow onset delay (2-3 seconds in length) resulting in premature bolus loss Pharyngeal phase primarily marked by... - reduced closure of the airway during deglutition attributed to reduced laryngeal elevation, reduced anterior hyoid excursion and insufficient epiglottic inversion - penetration was observed w/ thin liquids via cup and straw, nectar thick liquids via cup, pudding and cookie. - poor pharyngeal motility attributed to reduced tongue base retraction and reduced posterior pharyngeal stripping wave action resulting in pharyngeal retention within the valleculae and pyriforms contributing to post-prandial penetration - reduced pharyngoesophageal segment opening resulting in pharyngeal retention within the pyriforms contributing to post-prandial penetration - cannot definitively rule out aspiration due to pt's body habitus Patient benefits from cough and re-swallow w/ effortful swallow to clear pharyngeal residue. Patient is at high risk for post-prandial aspiration of pharyngeal residue. - Recommendations Diet: Regular Textures - Easy to Chew , Thin Liquids Compensatory Strategies: Small Bites, Small Sips, No Straws, Slow Rate, Multiple Swallows, Alternate bites/solids and sips/liquids, Sitting upright, Minimize/decrease distractions, Assist with verbal cues to use recommended strategies Supervision: 1:1 Close Supervision Recommend Repeat Modified Barium Swallow: TBD Need for Skilled Speech Therapy Services: Yes Comment: Patient requires intensive skilled speech-language intervention targeting continued diet texture management, training and implementation of recommended compensatory strategies, training and implementation of recommended oropharyngeal strengthening exercises to facilitate improved swallow function. Recommended Referrals: Dental Evaluation Education Completed: 1. Described result of evaluation., 2. Pt understands evaluation & agrees with goals and treatment plan. - Status Active ST Patient: Active - Contact Information [facility] Speech Therapy:: Jennifer Brock M.A. [facility] PROGRAMMER Speech-Language Pathologist [facility] [address] [place] [address] [email or web address] [phone] 08/07/22 15:00
[2022-08-07 14:41] LABS: Pathologist Review Reviewed
--- NOTE | 2022-08-07 15:27 | NURSING ---
Pt had swallow eval. at [address] reports pt had aspiration with several items and to make NPO at this time. Pt made aware and daughter at bedside and made aware. Oral swabs provided d/t patient c/o dry mouth. Pt has had no more oral bleeding and but mouth remains very dry and sore.
--- NOTE | 2022-08-07 15:46 | NURSING ---
Pt cleared for soft bite sized and thin liquids with 1:1 supervision. Pt made aware and daughter will be in the evening to make aware.
[2022-08-07] MEDS: Glucerna Shake 120 ML LIQUID PO ×2 (18:00→21:49)
[2022-08-07] MEDS: Rivaroxaban 10 MG Tablet PO (18:10)
[2022-08-07 18:11] VITALS: BP 148/53; PULSE 77
[2022-08-07] MEDS: Hydroxyurea 500 MG Capsule PO (21:44)
[2022-08-07] MEDS: Tamsulosin HCl 0.4 MG Capsule PO (21:48)
[2022-08-07] MEDS: Atorvastatin Calcium 20 MG Tablet PO (21:48)
[2022-08-07] MEDS: MELATONIN 10 MG TABLET PO (21:48)
[2022-08-08] MEDS: Glucerna Shake 120 ML LIQUID PO ×4 (05:54→19:59)
[2022-08-08] MEDS: Polyethylene Glycol 3350 17 GM PACKET PO (05:54)
[2022-08-08 05:55] VITALS: PULSE 96
[2022-08-08] MEDS: Sertraline 50 MG Tablet 25 MG PO (05:55)
[2022-08-08] MEDS: Metoprolol Tartrate 25 MG Tablet PO ×2 (05:55→17:46)
[2022-08-08] MEDS: Senna/Docusate Sodium 1 Tablet 2 TABLET PO ×2 (05:55→17:56)
[2022-08-08] MEDS: Acetaminophen 500 MG Tablet 1000 MG PO ×3 (05:55→19:59)
[2022-08-08] MEDS: Pyridoxine HCl 100 MG Tablet PO (05:58)
[2022-08-08 06:54] VITALS: O2SAT 92
[2022-08-08 07:13] LABS: Hematocrit 29.1 % (40-54); Hemoglobin 9.3 g/dL (13.0-16.5)
[2022-08-08] MEDS: Juven (unflavored) Packet 1 PACKET PO ×2 (08:23→17:46)
[2022-08-08] MEDS: Clotrimazole/Betamethasone 1 Tube 1 APPLIC TOPICAL (08:35)
[2022-08-08] MEDS: Menthol/Lanolin/Calamine/Znox 113 GM Tube 1 APPLIC TOPICAL ×2 (08:36→20:08)
[2022-08-08] MEDS: Nystatin Powder 15gm Bottle 1 APPLIC TOPICAL ×2 (08:36→20:08)
[2022-08-08 14:20] VITALS: BP 149/63; PULSE 87; RESP 16; TEMP 36.3; O2SAT 94
[2022-08-08 17:46] VITALS: BP 133/64; PULSE 79
[2022-08-08] MEDS: Rivaroxaban 10 MG Tablet PO (17:46)
[2022-08-08] MEDS: MELATONIN 10 MG TABLET PO (19:58)
[2022-08-08] MEDS: Tamsulosin HCl 0.4 MG Capsule PO (19:59)
[2022-08-08] MEDS: Atorvastatin Calcium 20 MG Tablet PO (20:00)
[2022-08-09] MEDS: Senna/Docusate Sodium 1 Tablet 2 TABLET PO ×2 (05:25→18:00)
[2022-08-09] MEDS: Polyethylene Glycol 3350 17 GM PACKET PO (05:25)
[2022-08-09 05:26] VITALS: BP 136/68; PULSE 82
[2022-08-09] MEDS: Metoprolol Tartrate 25 MG Tablet PO ×2 (05:26→18:00)
[2022-08-09] MEDS: Iron Polysaccharide Complex 150 MG CAPSULE PO (05:26)
[2022-08-09] MEDS: Sertraline 50 MG Tablet 25 MG PO (05:26)
[2022-08-09] MEDS: Pyridoxine HCl 100 MG Tablet PO (05:27)
[2022-08-09] MEDS: Acetaminophen 500 MG Tablet 1000 MG PO ×3 (05:27→21:16)
[2022-08-09] MEDS: Glucerna Shake 120 ML LIQUID PO ×4 (05:31→21:15)
[2022-08-09 07:01] VITALS: O2SAT 93
[2022-08-09] MEDS: Juven (unflavored) Packet 1 PACKET PO ×2 (09:29→17:53)
[2022-08-09] MEDS: Clotrimazole/Betamethasone 1 Tube 1 APPLIC TOPICAL (09:29)
[2022-08-09] MEDS: Menthol/Lanolin/Calamine/Znox 113 GM Tube 1 APPLIC TOPICAL ×2 (09:29→21:23)
[2022-08-09] MEDS: Ascorbic Acid 500 MG Tablet PO (09:29)
[2022-08-09] MEDS: Nystatin Powder 15gm Bottle 1 APPLIC TOPICAL ×2 (09:30→21:22)
[2022-08-09 14:44] VITALS: BP 151/67; PULSE 114; RESP 18; TEMP 36.5; O2SAT 96
[2022-08-09] MEDS: Rivaroxaban 10 MG Tablet PO (17:52)
[2022-08-09 18:00] VITALS: BP 178/75; PULSE 83
[2022-08-09] MEDS: Tamsulosin HCl 0.4 MG Capsule PO (21:16)
[2022-08-09] MEDS: MELATONIN 10 MG TABLET PO (21:16)
[2022-08-09] MEDS: Atorvastatin Calcium 20 MG Tablet PO (21:16)
[2022-08-10] MEDS: Glucerna Shake 120 ML LIQUID PO ×4 (05:33→21:40)
[2022-08-10] MEDS: Polyethylene Glycol 3350 17 GM PACKET PO (05:34)
[2022-08-10] MEDS: Acetaminophen 500 MG Tablet 1000 MG PO ×3 (05:34→21:36)
[2022-08-10] MEDS: Senna/Docusate Sodium 1 Tablet 2 TABLET PO ×2 (05:35→17:20)
[2022-08-10] MEDS: Pyridoxine HCl 100 MG Tablet PO (05:36)
[2022-08-10] MEDS: Sertraline 50 MG Tablet 25 MG PO (05:36)
[2022-08-10] MEDS: Iron Polysaccharide Complex 150 MG CAPSULE PO (05:36)
[2022-08-10 05:37] VITALS: BP 148/67; PULSE 76
[2022-08-10] MEDS: Metoprolol Tartrate 25 MG Tablet PO ×2 (05:37→17:19)
[2022-08-10 07:39] VITALS: O2SAT 95
[2022-08-10] MEDS: Ascorbic Acid 500 MG Tablet PO (08:51)
[2022-08-10] MEDS: Juven (unflavored) Packet 1 PACKET PO ×2 (08:51→17:18)
--- NOTE | 2022-08-10 09:16 | WOUNDNOTE ---
Pt is currently out of the room. will try to assess buttocks later today.
--- NOTE | 2022-08-10 12:14 | NURSING ---
Mammography contacted and pt is scheduled for mammogram and US at 0900 on Aug 18 in outpatient pavilion. Will need to be in w/c. If unable to be in w/c call down to make aware.
--- NOTE | 2022-08-10 12:35 | PHA.CONS_ITS ---
TCU RX Drug Regimen Review Subjective: TCU Admission. 86 YOM presented to the ER with a fall. Hospitalized for left hip fracture, underwent left hip ORIF nail 08/05/[address] York. Admitted to TCU with debility for strengthening and rehabilitation. Objective: Allergies No Known Allergies Allergy (Verified 08/04/22 21:12) Current Medications Generic Name Dose Route Start Last Admin Trade Name Freq PRN Reason Stop Dose Admin Acetaminophen 1,000 mg 08/06/22 22:15 08/10/22 05:34 Acetaminophen 500 Mg Tablet PO 1,000 mg Q8 CARLTON Administration Ascorbic Acid 500 mg 08/09/22 08:00 08/10/22 08:51 Ascorbic Acid 500 Mg Tablet PO 500 mg BREAKFAST CARLTON Administration Aspirin 81 mg 09/06/22 06:00 Aspirin 81 Mg Tab.Chew PO QHS CARLTON Atorvastatin Calcium 20 mg 08/06/22 22:00 08/09/22 21:16 Atorvastatin Calcium 20 Mg Tablet PO 20 mg QHS CARLTON Administration Bisacodyl 10 mg 08/06/22 19:58 08/07/22 06:59 Bisacodyl 10 Mg Suppository RC 10 mg DAILY PRN Administration Constipation Calamine/Phenol 1 applic 08/06/22 22:00 08/09/22 21:23 Menthol/Lanolin/Calamine/Znox 113 Gm Tube TOPICAL 1 applic 1000,2200 CARLTON Administration Protocol Clotrimazole 1 applic 08/07/22 10:00 08/09/22 09:29 Clotrimazole/Betamethasone 1 Tube TOPICAL 1 applic 1000 CARLTON Administration Protocol Hydroxyurea 500 mg 08/06/22 20:00 08/07/22 21:44 Hydroxyurea 500 Mg Capsule PO 500 mg MOTUWETHFR CARLTON Administration L-Arginine/L-Glutamine/Calcium HMB 1 packet 08/07/22 08:00 08/10/22 08:51 Ryan (Unflavored) Packet PO 1 packet BIDCM CARLTON Administration Lidocaine/Diphenhydr/Alum/Mg/Simeth 15 ml 08/07/22 07:55 Bmx Liquid 180 Ml PO Q3H PRN PRN SORE THROAT Melatonin 10 mg 08/06/22 22:00 08/09/22 21:16 Melatonin 10 Mg Tablet PO 10 mg QHS [facility] Administration Metoprolol Tartrate 25 mg 08/07/22 06:00 08/10/22 05:37 Metoprolol Tartrate 25 Mg Tablet PO 25 mg BID CARLTON Administration Nutritional Formula (Lactose Free) 120 ml 08/07/22 17:00 08/10/22 05:33 Glucerna Shake 120 Ml Liquid PO 120 ml 4X/DAY CARLTON Administration Nystatin 1 applic 08/07/22 10:00 08/09/22 21:22 Nystatin Powder 15gm Bottle TOPICAL 1 applic 1000,2200 CARLTON Administration Protocol Oxycodone HCl 2.5 mg 08/06/22 22:12 Oxycodone 5 Mg Tablet PO Q4H PRN PRN Pain Score 6-10 Polyethylene Glycol 17 gm 08/07/22 06:00 08/10/22 05:34 Polyethylene Glycol 3350 17 Gm Packet PO 17 gm DAILY CARLTON Administration Polysaccharide Iron Complex 150 mg 08/09/22 06:00 08/10/22 05:36 Iron Polysaccharide Complex 150 Mg Capsule PO 150 mg DAILY CARLTON Administration Pyridoxine HCl 100 mg 08/07/22 06:00 08/10/22 05:36 Pyridoxine Hcl 100 Mg Tablet PO 100 mg DAILY CARLTON Administration Rivaroxaban 10 mg 08/07/22 17:00 08/09/22 17:52 Rivaroxaban 10 Mg Tablet PO 09/05/22 23:55 10 mg DINNER [facility] Administration Senna/Docusate Sodium 2 tablet 08/07/22 06:00 08/10/22 05:35 Senna/Docusate Sodium 1 Tablet PO 2 tablet BID CARLTON Administration Sertraline HCl 25 mg 08/07/22 06:00 08/10/22 05:36 Sertraline 50 Mg Tablet PO 25 mg DAILY CARLTON Administration Tamsulosin HCl 0.4 mg 08/06/22 22:00 08/09/22 21:16 Tamsulosin Hcl 0.4 Mg Capsule PO 0.4 mg QHS [facility] Administration Tramadol HCl 50 mg 08/06/22 22:12 Tramadol 50 Mg Tablet PO Q6H PRN PRN Pain Score 1-5 Tuberculin PPD 0.1 ml 08/14/22 10:00 Tuberculin,Purif.Prot.Deriv. 50 Tu/Ml Vial ID 08/14/22 10:01 X1 ONE Problem List (Last Reviewed 08/06/22 @ 23:05 by Munira Aguillon) Thrombocytosis (Acute) Depression (Acute) Insomnia (Acute) BPH (benign prostatic hyperplasia) (Acute) Hyperlipidemia (Acute) Coronary artery disease (Acute) Chronic kidney disease, stage 3b (Acute) Closed left hip fracture (Acute) Frequent falls (Acute) Debility (Acute) Vital Signs Temp Pulse Resp BP Pulse Ox O2 Del Method O2 Flow Rate 97.7 F L 76 18 148/67 H 95 Room Air 1 08/09/22 14:44 08/10/22 05:37 08/09/22 14:44 08/10/22 05:37 08/10/22 07:39 08/10/22 07:39 08/07/22 13:51 Oxygen Flow Rate (L/min) 1 Oxygen Delivery Method Room Air Weight: 61.008 kg Body Mass Index (BMI) 19.3 Sodium 141 mmol/L (136-145) 08/07/22 05:20 Potassium 3.6 mmol/L (3.5-5.1) 08/07/22 05:20 Chloride 112 mmol/L (98-107) H 08/07/22 05:20 Carbon Dioxide 23.0 mmol/L (21.0-32.0) 08/07/22 05:20 Anion Gap 6 (5-15) 08/07/22 05:20 BUN 33 mg/dL (7-18) H 08/07/22 05:20 Creatinine 1.33 mg/dL (0.70-1.30) H 08/07/22 05:20 Est GFR (MDRD) Af Amer 65 mL/min (>60) 08/07/22 05:20 Est GFR (MDRD) Non-Af 54 mL/min (>60) L 08/07/22 05:20 BUN/Creatinine Ratio 24.8 RATIO (10-20) H 08/07/22 05:20 Glucose 233 mg/dL (74-106) H 08/07/22 05:20 Assessment/Plan: 1. Pain: acetaminophen?1000 mg?PO Q8H and 500mg with breakfast,?tramadol?50?mg?Q6H PRN for pain score (1-5), and oxycodone 2.5 mg PO Q4H PRN for pain score (6-10).?No documented use of tramadol or oxycodone yet.?Please continue to?monitor?for increased pain, PRN usage, and constipation.?? 2. Bowel:?Miralax?17 gm PO daily, senna/docusate 2 tablets PO BID,?and?bisacodyl?10 mg?suppository PRN daily. Resident has received 1 dose of bisacodyl. Last documented bowel movement 08/09/2022. Please continue to?monitor?for constipation and PRN usage.?? 3. DVT prophylaxis: rivaroxaban?10 mg?PO daily through 09/05/2022. Please continue to?monitor?hemoglobin (last 9.3 g/dL) and signs/symptoms of a bleed or blood?clot.?? 4. Coronary artery disease/hyperlipidemia: metoprolol tartrate?25 mg?PO BID, Xarelto?10 mg?PO daily (through 09/05/2022),?aspirin?81 mg?daily (staring 09/06/2022)?and?atorvastatin?20 mg?PO QHS. Please continue to?monitor?BP (last 148/67 mmHg), HR (last 76 bpm), hemoglobin (last 9.3 g/dL),?signs/symptoms of a blood clot/bleed, lipid panel (last 07/09/22), LFT (last 11/17/21)?and symptoms of muscle pain.? 5. Tinea?corporis: Clotrimazole/betamethasone?1 application topically daily. Please continue to?monitor?for skin irritation,?and?signs of worsening infection?including systemic infection.?? 6. Thrombocytosis:?hydroxyurea?500 mg?PO 5 days per week.?Please continue to?monitor?platelets (488 K/mm3),?BUN (last?33 mg/dL)?and?SCr?(last 1.33 mg/dL), and signs of a blood clot or bleed.?? 7. Benign prostatic hyperplasia: tamsulosin 0.4 mg PO daily.?Please continue to?monitor?urinary frequency/volume and BP. 8. Sore throat: Benadryl/Lidocaine/Maalox (BMX) 15 mL Po Q3H PRN sore throat. No documented administration yet.?Please continue to monitor for PRN usage. 9. Vitamin B6?deficiency: Vitamin B6?100 mg?PO daily.?Please continue to monitor. 10. Insomnia: melatonin?10mg?PO QHS.?Please continue to monitor for excessive drowsiness. 11. Iron deficiency (hemoglobin 9.3g/dL): Ferrex 150mg PO DAILYCM. Please continue to monitor hemoglobin, dark stools and constipation. Assessment/Plan for indications treated with psychotropic medications: 1. Depression: sertraline?25mg?PO?daily. Please refer to provider note?regarding?GDR. Please continue to?monitor?weight (61.008 kg), BP?(last 148/53 mmHg), signs of suicidal ideation (black box) and falls/fractures (BEERs list medication, resident admitted with fall). Medical chart and medication regimen reviewed. The following medication irregularities or issues were identified: None Date of Note:: 08/10/22
[2022-08-10 13:49] VITALS: BP 170/67; PULSE 99; RESP 16; TEMP 36.5; O2SAT 94
[2022-08-10] MEDS: Nystatin Powder 15gm Bottle 1 APPLIC TOPICAL ×2 (17:18→21:36)
[2022-08-10 17:19] VITALS: BP 170/67; PULSE 99
[2022-08-10] MEDS: Rivaroxaban 10 MG Tablet PO (17:19)
[2022-08-10] MEDS: Menthol/Lanolin/Calamine/Znox 113 GM Tube 1 APPLIC TOPICAL ×2 (17:21→21:35)
[2022-08-10] MEDS: Clotrimazole/Betamethasone 1 Tube 1 APPLIC TOPICAL (17:23)
[2022-08-10 18:31] VITALS: BP 170/67; PULSE 99
[2022-08-10] MEDS: Metoprolol Tartrate 50 MG Tablet PO (18:31)
[2022-08-10] MEDS: Hydroxyurea 500 MG Capsule PO (21:33)
[2022-08-10] MEDS: Atorvastatin Calcium 20 MG Tablet PO (21:35)
[2022-08-10] MEDS: MELATONIN 10 MG TABLET PO (21:35)
[2022-08-10] MEDS: Tamsulosin HCl 0.4 MG Capsule PO (21:35)
[2022-08-10 22:02] VITALS: PULSE 74; RESP 16; O2SAT 96
[2022-08-11] MEDS: Glucerna Shake 120 ML LIQUID PO ×4 (06:38→21:28)
[2022-08-11] MEDS: Pyridoxine HCl 100 MG Tablet PO (06:39)
[2022-08-11] MEDS: Iron Polysaccharide Complex 150 MG CAPSULE PO (06:39)
[2022-08-11] MEDS: Sertraline 50 MG Tablet 25 MG PO (06:39)
[2022-08-11] MEDS: Acetaminophen 500 MG Tablet 1000 MG PO ×3 (06:39→21:28)
[2022-08-11] MEDS: Polyethylene Glycol 3350 17 GM PACKET PO (06:39)
[2022-08-11 06:40] VITALS: BP 174/79; PULSE 88
[2022-08-11] MEDS: Senna/Docusate Sodium 1 Tablet 2 TABLET PO (06:40)
[2022-08-11] MEDS: Metoprolol Tartrate 50 MG Tablet PO ×2 (06:40→18:09)
[2022-08-11] MEDS: Juven (unflavored) Packet 1 PACKET PO ×2 (10:17→18:10)
[2022-08-11] MEDS: Ascorbic Acid 500 MG Tablet PO (10:17)
[2022-08-11] MEDS: Clotrimazole/Betamethasone 1 Tube 1 APPLIC TOPICAL (10:46)
[2022-08-11] MEDS: Menthol/Lanolin/Calamine/Znox 113 GM Tube 1 APPLIC TOPICAL ×2 (10:46→21:35)
[2022-08-11] MEDS: Nystatin Powder 15gm Bottle 1 APPLIC TOPICAL ×2 (10:46→21:35)
[2022-08-11 14:45] VITALS: BP 145/63; PULSE 80; RESP 14; TEMP 36.2; O2SAT 93
--- NOTE | 2022-08-11 15:11 | NUR.TO.PHY ---
spoke with [facility] insurance, no prior authorization needed for mammogram on 08/18/22 per insurance company.
--- NOTE | 2022-08-11 16:17 | CASEMGMT ---
Social Work BIMS (08/04) and PHQ-9 (12/14) completed for MDS assessment. Kathy Pelaez MSW [employer]ER
[2022-08-11 18:09] VITALS: PULSE 80
[2022-08-11] MEDS: Rivaroxaban 10 MG Tablet PO (18:09)
[2022-08-11 21:00] VITALS: PULSE 85; RESP 16; O2SAT 96
[2022-08-11] MEDS: Tamsulosin HCl 0.4 MG Capsule PO (21:27)
[2022-08-11] MEDS: Atorvastatin Calcium 20 MG Tablet PO (21:27)
[2022-08-11] MEDS: Hydroxyurea 500 MG Capsule PO (21:28)
[2022-08-11] MEDS: MELATONIN 10 MG TABLET PO (21:28)
[2022-08-12] MEDS: Pyridoxine HCl 100 MG Tablet PO (06:02)
[2022-08-12] MEDS: Acetaminophen 500 MG Tablet 1000 MG PO ×3 (06:02→21:33)
[2022-08-12] MEDS: Iron Polysaccharide Complex 150 MG CAPSULE PO (06:02)
[2022-08-12] MEDS: Sertraline 50 MG Tablet 25 MG PO (06:02)
[2022-08-12 06:05] VITALS: BP 157/66; PULSE 96
[2022-08-12] MEDS: Metoprolol Tartrate 50 MG Tablet PO ×2 (06:05→18:27)
[2022-08-12] MEDS: Glucerna Shake 120 ML LIQUID PO ×4 (06:08→21:32)
[2022-08-12] MEDS: Ascorbic Acid 500 MG Tablet PO (07:42)
[2022-08-12] MEDS: Juven (unflavored) Packet 1 PACKET PO ×2 (07:42→18:26)
[2022-08-12 10:00] VITALS: PULSE 74; O2SAT 96
[2022-08-12] MEDS: Nystatin Powder 15gm Bottle 1 APPLIC TOPICAL ×2 (10:30→21:41)
[2022-08-12] MEDS: Menthol/Lanolin/Calamine/Znox 113 GM Tube 1 APPLIC TOPICAL ×2 (10:31→21:41)
[2022-08-12] MEDS: Clotrimazole/Betamethasone 1 Tube 1 APPLIC TOPICAL (10:32)
--- NOTE | 2022-08-12 11:00 | CASEMGMT ---
Social Work Plan of care meeting held. Patient present as well as patient spouse and patient daughter. Patient to continue with further care and treatment on the Transitional Care Unit per team recommendation. This social sciences lecturer communicating that insurance update is due on 08/17/2022 with no guarantee of continued stay approval and anticipated discharge date to be 08/24/2022. Patient plans to return to [facility] with at time of discharge. Patient daughterEvelny reports to have been in contact with [facility] about patient level of care needs and that [facility] will be able to meet patient level of care needs. Evelyn reports that patient was being seen by [facility] services and request for patient to continue with home health care after discharge from TCU. Team is agreeable and recommends for patient to have continued therapy after discharge for PT/OT/FERRY HAND. Team able to answer all questions. Social Work to continue to follow as needed. Diony ALLEN, JAMES
[2022-08-12 15:13] VITALS: BP 139/70; PULSE 90; RESP 16; TEMP 36.4; O2SAT 94
--- NOTE | 2022-08-12 15:25 | CHAPLAIN ---
Type of Pastoral Visit _x__ Initial Visit ___ Follow-up Visit ___ On-call Visit ___ General Patient Visit ___ Spiritual Assessment ___ Family Conference ___ Bereavement ___ Rapid Response ___ Code Blue ___ Other (describe below) Pastoral Care Referral From _x__ Patient ___ Family ___ Nurse ___ Physician ___ Instrumentation Technician ___ Operations Tech ___ Other (describe below) Sacrament/Intervention _x__ Active listening ___ Anointing ___ Catholic ___ Bereavement ___ Communion ___ Anne exploration ___ ___ Life review ___ Prayer ___ Reconciliation ___ Sacrament of Sick _x__ Supportive presence ___ Wedding ___ Other (describe below) Pastoral Comments patient looks out the window and rarely looks in direction of this identification clerk during the visit; pt uses phrases this is worse than I thought, I did this to myself, and depressed; pt is asked to describe feelings and he repeats these phrases; pt is asked to review other times when he had challenges and how did he cope or get through them; pt responded that he just persevered because I had a family to take care of; talk a bit about coping and things/activities/thoughts that are positive for him; pt was asked if prayer would be helpful and he said I'm not sure so that was not offered; wished pt well and offered future visits as desired
[2022-08-12 18:27] VITALS: BP 139/70; PULSE 90
[2022-08-12] MEDS: Rivaroxaban 10 MG Tablet PO (18:27)
[2022-08-12] MEDS: Hydroxyurea 500 MG Capsule PO (21:32)
[2022-08-12] MEDS: MELATONIN 10 MG TABLET PO (21:32)
[2022-08-12] MEDS: Atorvastatin Calcium 20 MG Tablet PO (21:33)
[2022-08-12] MEDS: Tamsulosin HCl 0.4 MG Capsule PO (21:33)
[2022-08-13] MEDS: Iron Polysaccharide Complex 150 MG CAPSULE PO (06:24)
[2022-08-13] MEDS: Glucerna Shake 120 ML LIQUID PO ×4 (06:24→19:54)
[2022-08-13] MEDS: Pyridoxine HCl 100 MG Tablet PO (06:25)
[2022-08-13] MEDS: Acetaminophen 500 MG Tablet 1000 MG PO ×3 (06:25→19:48)
[2022-08-13] MEDS: Sertraline 50 MG Tablet 25 MG PO (06:25)
[2022-08-13] MEDS: Senna/Docusate Sodium 1 Tablet 2 TABLET PO ×2 (06:25→17:46)
[2022-08-13 06:26] VITALS: BP 156/66; PULSE 92
[2022-08-13] MEDS: Metoprolol Tartrate 50 MG Tablet PO ×2 (06:26→17:46)
[2022-08-13] MEDS: Ascorbic Acid 500 MG Tablet PO (08:17)
[2022-08-13] MEDS: Juven (unflavored) Packet 1 PACKET PO ×2 (08:18→17:46)
[2022-08-13] MEDS: Clotrimazole/Betamethasone 1 Tube 1 APPLIC TOPICAL (09:40)
[2022-08-13] MEDS: Nystatin Powder 15gm Bottle 1 APPLIC TOPICAL ×2 (09:40→19:51)
[2022-08-13] MEDS: Menthol/Lanolin/Calamine/Znox 113 GM Tube 1 APPLIC TOPICAL ×2 (09:42→19:51)
[2022-08-13 15:35] VITALS: BP 144/59; PULSE 90; RESP 14; TEMP 36.6; O2SAT 94
[2022-08-13 17:46] VITALS: BP 155/63; PULSE 75
[2022-08-13] MEDS: Rivaroxaban 10 MG Tablet PO (17:46)
[2022-08-13] MEDS: Tamsulosin HCl 0.4 MG Capsule PO (19:49)
[2022-08-13] MEDS: MELATONIN 10 MG TABLET PO (19:49)
[2022-08-13] MEDS: Atorvastatin Calcium 20 MG Tablet PO (19:49)
[2022-08-13] MEDS: Hydroxyurea 500 MG Capsule PO (19:50)
[2022-08-13 23:40] VITALS: PULSE 87; RESP 14; O2SAT 94
[2022-08-14 05:54] LABS: Hematocrit 30.3 % (40-54); Hemoglobin 9.8 g/dL (13.0-16.5); Mean Corp Hgb Conc 32.3 g/dL (32-36); Mean Corpuscular Hgb 30.9 pg (27.0-32.0); Mean Corpuscular Volume 95.6 fL (80-94); Mean Platelet Vol. 11.2 fl (6.2-12.0); POSITIVE COUNT YES; POSITIVE MORPHOLOGY YES; Platelet Count 518 K/mm3 (150-450); RBC Distribution Width CV 16.6 % (11.6-14.6); Red Blood Count 3.17 M/mm3 (4.6-6.2)
[2022-08-14 05:58] LABS: Differential Indicated MANUAL DIFF
[2022-08-14 06:12] LABS: Basophil 1 % (0-1); Eosinophil 1 % (0-5); Lymphocyte 8 % (19-41); Metamyelocyte 1 % (0-1); Monocyte 8 % (0-10); Neutrophil-Segmented 81 % (47-70); Total Cells Counted 100 (MANUAL DIFF)
[2022-08-14 06:13] LABS: Absolute Neutrophil Count 8.2 X10^3/uL (2.0-7.7); Neutrophil # 8.22 X10^3/uL (2.7-7.7)
[2022-08-14 06:15] LABS: Platelet Estimate MKD INC (ADEQ); Red Cell Morphology NORM C+C NORMAL (NORM C&C)
[2022-08-14] MEDS: Iron Polysaccharide Complex 150 MG CAPSULE PO (06:17)
[2022-08-14] MEDS: Glucerna Shake 120 ML LIQUID PO ×4 (06:17→21:12)
[2022-08-14] MEDS: Polyethylene Glycol 3350 17 GM PACKET PO (06:17)
[2022-08-14] MEDS: Acetaminophen 500 MG Tablet 1000 MG PO ×3 (06:17→21:17)
[2022-08-14] MEDS: Senna/Docusate Sodium 1 Tablet 2 TABLET PO ×2 (06:17→17:44)
[2022-08-14] MEDS: Sertraline 50 MG Tablet 25 MG PO (06:17)
[2022-08-14 06:18] VITALS: BP 150/64; PULSE 83
[2022-08-14] MEDS: Pyridoxine HCl 100 MG Tablet PO (06:18)
[2022-08-14] MEDS: Metoprolol Tartrate 50 MG Tablet PO ×2 (06:18→17:44)
[2022-08-14 06:22] LABS: Anion Gap 7 (5-15); BUN 54 mg/dL (7-18); BUN/Creat Ratio 45.4 RATIO (10-20); Calcium,Total 8.6 mg/dL (8.5-10.1); Chloride 106 mmol/L (98-107); Creatinine, Serum 1.19 mg/dL (0.70-1.30); EST Glomerular Filtration Rate 61 mL/min (>60); Est Glom Filt Rate - Afr Amer 74 mL/min (>60); Estimated Creatinine Clearance 37.74 ml/min; Glucose 348 mg/dL (74-106); Potassium 4.4 mmol/L (3.5-5.1); Sodium Level 138 mmol/L (136-145)
[2022-08-14] MEDS: Ascorbic Acid 500 MG Tablet PO (08:16)
[2022-08-14] MEDS: Juven (unflavored) Packet 1 PACKET PO ×2 (08:16→17:48)
--- NOTE | 2022-08-14 09:16 | CASEMGMT ---
Social Work Insurance update 08/17 with EDC 08/24. V[facility] to ensure return. Will continue to follow. TIFFANY EspinosaW
[2022-08-14 09:21] VITALS: PULSE 75; RESP 16; O2SAT 97
[2022-08-14] MEDS: Menthol/Lanolin/Calamine/Znox 113 GM Tube 1 APPLIC TOPICAL ×2 (11:33→21:13)
[2022-08-14] MEDS: Clotrimazole/Betamethasone 1 Tube 1 APPLIC TOPICAL (11:34)
[2022-08-14] MEDS: Nystatin Powder 15gm Bottle 1 APPLIC TOPICAL ×2 (11:35→21:13)
[2022-08-14] MEDS: Tuberculin,Purif.prot.deriv. 50 TU/ML Vial 0.1 ML ID (11:36)
[2022-08-14 13:30] LABS: Pathologist Review Reviewed
[2022-08-14 16:00] VITALS: BP 144/68; PULSE 85; RESP 18; TEMP 36.8; O2SAT 93
[2022-08-14 17:42] VITALS: BP 138/77; PULSE 84
[2022-08-14 17:44] VITALS: PULSE 84
[2022-08-14] MEDS: Rivaroxaban 10 MG Tablet PO (17:44)
[2022-08-14] MEDS: Atorvastatin Calcium 20 MG Tablet PO (21:16)
[2022-08-14] MEDS: Hydroxyurea 500 MG Capsule PO (21:17)
[2022-08-14] MEDS: MELATONIN 10 MG TABLET PO (21:17)
[2022-08-14] MEDS: Tamsulosin HCl 0.4 MG Capsule PO (21:17)
[2022-08-15] MEDS: Glucerna Shake 120 ML LIQUID PO ×4 (06:14→20:25)
[2022-08-15] MEDS: Sertraline 50 MG Tablet 25 MG PO (06:14)
[2022-08-15 06:15] VITALS: BP 161/63; PULSE 82
[2022-08-15] MEDS: Pyridoxine HCl 100 MG Tablet PO (06:15)
[2022-08-15] MEDS: Iron Polysaccharide Complex 150 MG CAPSULE PO (06:15)
[2022-08-15] MEDS: Acetaminophen 500 MG Tablet 1000 MG PO ×3 (06:15→20:27)
[2022-08-15] MEDS: Metoprolol Tartrate 50 MG Tablet PO ×2 (06:15→17:45)
[2022-08-15] MEDS: Juven (unflavored) Packet 1 PACKET PO ×2 (07:37→17:43)
[2022-08-15] MEDS: Ascorbic Acid 500 MG Tablet PO (07:37)
[2022-08-15] MEDS: Nystatin Powder 15gm Bottle 1 APPLIC TOPICAL ×2 (07:38→20:27)
[2022-08-15] MEDS: Clotrimazole/Betamethasone 1 Tube 1 APPLIC TOPICAL (07:38)
[2022-08-15 15:13] VITALS: BP 154/60; PULSE 80; RESP 16; TEMP 37; O2SAT 93
[2022-08-15] MEDS: Rivaroxaban 10 MG Tablet PO (17:43)
[2022-08-15 17:45] VITALS: PULSE 80
[2022-08-15] MEDS: Menthol/Lanolin/Calamine/Znox 113 GM Tube 1 APPLIC TOPICAL (20:25)
[2022-08-15] MEDS: Atorvastatin Calcium 20 MG Tablet PO (20:27)
[2022-08-15] MEDS: Tamsulosin HCl 0.4 MG Capsule PO (20:27)
[2022-08-15] MEDS: MELATONIN 10 MG TABLET PO (20:27)
[2022-08-15 20:36] VITALS: PULSE 52; RESP 16; O2SAT 97
[2022-08-16] MEDS: Glucerna Shake 120 ML LIQUID PO ×4 (04:45→21:12)
[2022-08-16] MEDS: Sertraline 50 MG Tablet 25 MG PO (04:46)
[2022-08-16] MEDS: Pyridoxine HCl 100 MG Tablet PO (04:46)
[2022-08-16] MEDS: Senna/Docusate Sodium 1 Tablet 2 TABLET PO ×2 (04:47→17:30)
[2022-08-16] MEDS: Iron Polysaccharide Complex 150 MG CAPSULE PO (04:47)
[2022-08-16] MEDS: Acetaminophen 500 MG Tablet 1000 MG PO ×3 (04:48→21:13)
[2022-08-16 04:50] VITALS: BP 131/56; PULSE 76
[2022-08-16] MEDS: Metoprolol Tartrate 50 MG Tablet PO ×2 (04:50→17:31)
[2022-08-16] MEDS: Polyethylene Glycol 3350 17 GM PACKET PO (04:54)
[2022-08-16] MEDS: Ascorbic Acid 500 MG Tablet PO (08:02)
[2022-08-16] MEDS: Menthol/Lanolin/Calamine/Znox 113 GM Tube 1 APPLIC TOPICAL ×2 (08:02→21:12)
[2022-08-16] MEDS: Juven (unflavored) Packet 1 PACKET PO ×2 (08:02→17:29)
[2022-08-16] MEDS: Clotrimazole/Betamethasone 1 Tube 1 APPLIC TOPICAL (08:02)
[2022-08-16] MEDS: Nystatin Powder 15gm Bottle 1 APPLIC TOPICAL ×2 (08:03→21:12)
[2022-08-16 10:11] VITALS: PULSE 63; RESP 16; O2SAT 94
[2022-08-16 14:12] VITALS: BP 124/47; PULSE 68; RESP 16; TEMP 36.6; O2SAT 94
[2022-08-16] MEDS: Rivaroxaban 10 MG Tablet PO (17:29)
[2022-08-16 17:31] VITALS: PULSE 68
[2022-08-16] MEDS: MELATONIN 10 MG TABLET PO (21:13)
[2022-08-16] MEDS: Atorvastatin Calcium 20 MG Tablet PO (21:13)
[2022-08-16] MEDS: Tamsulosin HCl 0.4 MG Capsule PO (21:14)
[2022-08-17] MEDS: Polyethylene Glycol 3350 17 GM PACKET PO (05:25)
[2022-08-17] MEDS: Iron Polysaccharide Complex 150 MG CAPSULE PO (05:25)
[2022-08-17] MEDS: Pyridoxine HCl 100 MG Tablet PO (05:25)
[2022-08-17 05:26] VITALS: BP 134/51; PULSE 69
[2022-08-17] MEDS: Acetaminophen 500 MG Tablet 1000 MG PO ×2 (05:26→20:19)
[2022-08-17] MEDS: Sertraline 50 MG Tablet 25 MG PO (05:26)
[2022-08-17] MEDS: Metoprolol Tartrate 50 MG Tablet PO ×2 (05:26→17:22)
[2022-08-17] MEDS: Senna/Docusate Sodium 1 Tablet 2 TABLET PO (05:26)
[2022-08-17] MEDS: Juven (unflavored) Packet 1 PACKET PO ×2 (07:51→17:20)
[2022-08-17] MEDS: Ascorbic Acid 500 MG Tablet PO (07:51)
--- NOTE | 2022-08-17 09:35 | NURSING ---
[employer] Note; MDS for 08/13/2022 Complete
[2022-08-17] MEDS: Menthol/Lanolin/Calamine/Znox 113 GM Tube 1 APPLIC TOPICAL ×2 (11:39→20:21)
[2022-08-17] MEDS: Nystatin Powder 15gm Bottle 1 APPLIC TOPICAL ×2 (11:40→20:23)
[2022-08-17] MEDS: Clotrimazole/Betamethasone 1 Tube 1 APPLIC TOPICAL (11:40)
[2022-08-17] MEDS: Glucerna Shake 120 ML LIQUID PO ×3 (11:41→20:21)
[2022-08-17 13:42] VITALS: BP 133/70; PULSE 75; RESP 16; TEMP 36.4; O2SAT 96
--- NOTE | 2022-08-17 13:47 | NURSING ---
Spoke with daughter, Evelyn, regarding the COVID 19 Booster, she said that her father had it at [place] in June.
--- NOTE | 2022-08-17 17:00 | CASEMGMT ---
Social Work Continued stay approved by insurance with next update due ton 08/24/2022. This social service technician updated patient on above information. Patient request for this social service technician to contact patient daughter to update as well. Telephone call to patient daughterEvelyn. This social service technician communicating continued stay approval by insurance. Social Work to continue to follow. Diony ALLEN, DRU
[2022-08-17 17:22] VITALS: BP 133/70; PULSE 75
[2022-08-17] MEDS: Rivaroxaban 10 MG Tablet PO (17:22)
[2022-08-17] MEDS: Hydroxyurea 500 MG Capsule PO (20:19)
[2022-08-17] MEDS: MELATONIN 10 MG TABLET PO (20:20)
[2022-08-17] MEDS: Atorvastatin Calcium 20 MG Tablet PO (20:20)
[2022-08-17] MEDS: Tamsulosin HCl 0.4 MG Capsule PO (20:22)
[2022-08-17 20:41] VITALS: PULSE 70; RESP 16; O2SAT 97
[2022-08-18 05:25] VITALS: BP 145/76; PULSE 67
[2022-08-18] MEDS: Metoprolol Tartrate 50 MG Tablet PO ×2 (05:25→17:30)
[2022-08-18] MEDS: Sertraline 50 MG Tablet 25 MG PO (05:25)
[2022-08-18] MEDS: Pyridoxine HCl 100 MG Tablet PO (05:25)
[2022-08-18] MEDS: Acetaminophen 500 MG Tablet 1000 MG PO ×2 (05:25→20:58)
[2022-08-18] MEDS: Iron Polysaccharide Complex 150 MG CAPSULE PO (05:25)
[2022-08-18] MEDS: Glucerna Shake 120 ML LIQUID PO ×4 (05:26→20:59)
[2022-08-18 10:05] VITALS: PULSE 63; RESP 16; O2SAT 97
[2022-08-18] MEDS: Nystatin Powder 15gm Bottle 1 APPLIC TOPICAL ×2 (11:01→20:59)
[2022-08-18] MEDS: Menthol/Lanolin/Calamine/Znox 113 GM Tube 1 APPLIC TOPICAL ×2 (11:02→20:58)
[2022-08-18] MEDS: Clotrimazole/Betamethasone 1 Tube 1 APPLIC TOPICAL (11:02)
[2022-08-18] MEDS: Ascorbic Acid 500 MG Tablet PO (11:03)
[2022-08-18] MEDS: Juven (unflavored) Packet 1 PACKET PO ×2 (11:03→17:31)
[2022-08-18 13:17] VITALS: BP 130/51; PULSE 52; RESP 18; TEMP 36.4; O2SAT 96
--- NOTE | 2022-08-18 14:17 | MDS.RN ---
Information for the mds was obtained from review of the clincal record, interview of resident, staff, and direct observation of resident's care.
[2022-08-18 17:30] VITALS: BP 145/69; PULSE 66
[2022-08-18] MEDS: Rivaroxaban 10 MG Tablet PO (17:31)
[2022-08-18] MEDS: Senna/Docusate Sodium 1 Tablet 2 TABLET PO (17:43)
[2022-08-18] MEDS: Hydroxyurea 500 MG Capsule PO (20:58)
[2022-08-18] MEDS: MELATONIN 10 MG TABLET PO (20:58)
[2022-08-18] MEDS: Atorvastatin Calcium 20 MG Tablet PO (20:58)
[2022-08-18] MEDS: Tamsulosin HCl 0.4 MG Capsule PO (20:58)
[2022-08-19 04:57] VITALS: BP 143/51; PULSE 75; RESP 18; TEMP 36.4; O2SAT 93
[2022-08-19 05:02] VITALS: BP 143/51; PULSE 75
[2022-08-19] MEDS: Sertraline 50 MG Tablet 25 MG PO (05:02)
[2022-08-19] MEDS: Acetaminophen 500 MG Tablet 1000 MG PO ×3 (05:02→23:18)
[2022-08-19] MEDS: Metoprolol Tartrate 50 MG Tablet PO ×2 (05:02→17:01)
[2022-08-19] MEDS: Pyridoxine HCl 100 MG Tablet PO (05:02)
[2022-08-19] MEDS: Iron Polysaccharide Complex 150 MG CAPSULE PO (05:03)
[2022-08-19] MEDS: Juven (unflavored) Packet 1 PACKET PO ×2 (08:26→16:59)
[2022-08-19] MEDS: Ascorbic Acid 500 MG Tablet PO (08:26)
--- NOTE | 2022-08-19 10:24 | CASEMGMT ---
Addendum entered by Kathy Pelaez 08/19/22 10:43: Spoke with dtr and offered setting DC date for weekend/next week. Educated to pt at new normal and recommending having pt return to environment. Mehrdad is able to accept pt at time of return. Dtr stated may be sick and wants to speak to Mehrdad first before setting date. SW expressed understanding and will assist with DC plans. Original Note: Social Work Left message with dtr to discuss setting DC date for pt. Kathy Pelaez, TIFFANY KELLEYW
[2022-08-19] MEDS: Glucerna Shake 120 ML LIQUID PO ×3 (11:46→23:23)
[2022-08-19] MEDS: Nystatin Powder 15gm Bottle 1 APPLIC TOPICAL ×2 (11:47→23:19)
[2022-08-19] MEDS: Clotrimazole/Betamethasone 1 Tube 1 APPLIC TOPICAL (11:48)
[2022-08-19 14:21] VITALS: BP 135/68; PULSE 77; RESP 16; TEMP 36.3; O2SAT 94
[2022-08-19 17:01] VITALS: PULSE 77
[2022-08-19] MEDS: Rivaroxaban 10 MG Tablet PO (17:01)
[2022-08-19] MEDS: Senna/Docusate Sodium 1 Tablet 2 TABLET PO (17:02)
[2022-08-19 23:15] VITALS: PULSE 66; RESP 14; O2SAT 95
[2022-08-19] MEDS: MELATONIN 10 MG TABLET PO (23:17)
[2022-08-19] MEDS: Atorvastatin Calcium 20 MG Tablet PO (23:17)
[2022-08-19] MEDS: Tamsulosin HCl 0.4 MG Capsule PO (23:18)
[2022-08-19] MEDS: Menthol/Lanolin/Calamine/Znox 113 GM Tube 1 APPLIC TOPICAL (23:19)
[2022-08-19] MEDS: Hydroxyurea 500 MG Capsule PO (23:19)
[2022-08-19] MEDS: Mirtazapine 15 MG Tablet 7.5 MG PO (23:22)
[2022-08-20] MEDS: Glucerna Shake 120 ML LIQUID PO ×4 (05:30→22:32)
[2022-08-20] MEDS: Polyethylene Glycol 3350 17 GM PACKET PO (05:30)
[2022-08-20] MEDS: Acetaminophen 500 MG Tablet 1000 MG PO ×2 (05:31→22:33)
[2022-08-20] MEDS: Iron Polysaccharide Complex 150 MG CAPSULE PO (05:31)
[2022-08-20] MEDS: Senna/Docusate Sodium 1 Tablet 2 TABLET PO ×2 (05:31→17:13)
[2022-08-20 05:32] VITALS: BP 137/50; PULSE 72
[2022-08-20] MEDS: Metoprolol Tartrate 50 MG Tablet PO (05:32)
[2022-08-20] MEDS: Sertraline 50 MG Tablet 25 MG PO (05:32)
[2022-08-20] MEDS: Pyridoxine HCl 100 MG Tablet PO (05:32)
--- NOTE | 2022-08-20 05:50 | EKGRS_ITS ---
Test Reason : MADDISON MANTILLA Blood Pressure : / mmHG Vent. Rate : 077 BPM Atrial Rate : 077 BPM P-R Int : 104 ms QRS Dur : 084 ms QT Int : 420 ms P-R-T Axes : 000 032 -39 degrees QTc Int : 475 ms Sinus rhythm with short UT with Premature atrial complexes in a pattern of bigeminy Nonspecific T wave abnormality Prolonged QT Abnormal ECG Confirmed by DONALD DAVALOS, DU ([id number]), senior editor DENA CARO ([id number]) on 08/25/2022 12:56:02 PM Referred By: Rafita Helms Confirmed By:DU BENNETT MD
--- NOTE | 2022-08-20 06:05 | NURSING ---
Irregular heart beat noted this AM. No c/o chest pain, change of vision, or SOB. ECG done by respiratory. EKG strip reads: sinus rhythm w/ short PA w/ premature atrial complexes in a pattern of bigeminy. Nonspecific T wave abnormality. Prolonged QT. Abnormal ECG. Communication left for Dr Helms.
[2022-08-20] MEDS: Juven (unflavored) Packet 1 PACKET PO ×2 (08:19→17:16)
[2022-08-20] MEDS: Ascorbic Acid 500 MG Tablet PO (08:19)
[2022-08-20] MEDS: Nystatin Powder 15gm Bottle 1 APPLIC TOPICAL ×2 (10:45→22:33)
[2022-08-20] MEDS: Clotrimazole/Betamethasone 1 Tube 1 APPLIC TOPICAL (10:46)
[2022-08-20 13:45] VITALS: BP 129/67; PULSE 62; RESP 18; TEMP 36.2; O2SAT 98
[2022-08-20] MEDS: Rivaroxaban 10 MG Tablet PO (17:13)
--- NOTE | 2022-08-20 17:16 | CASEMGMT ---
Social Work Spoke with Socorro at [facility] about DC date. Requesting DC 08/25, a w/c and hospital bed. Socorro spoke with dtr and all in agreement; requesting [facility]. IDT agreeable as well. VINICIUS sent DME order via [facility] to [facility]. Referral made via phone and [facility] to [facility] For PT/OT/ST. Plan: DC to [facility] [place] 08/25, w/c, hospital bed, [facility] PT/OT/ST TIFFANY Espinosa
[2022-08-20 17:18] VITALS: BP 100/54; PULSE 67
[2022-08-20] MEDS: Hydroxyurea 500 MG Capsule PO (22:31)
[2022-08-20] MEDS: Atorvastatin Calcium 20 MG Tablet PO (22:32)
[2022-08-20] MEDS: Mirtazapine 15 MG Tablet 7.5 MG PO (22:33)
[2022-08-20] MEDS: MELATONIN 10 MG TABLET PO (22:33)
[2022-08-20] MEDS: Tamsulosin HCl 0.4 MG Capsule PO (22:34)
[2022-08-21 05:50] LABS: Absolute Lymphocyte Count 0.76 X10^3/uL (0.83-4.51); Absolute Neutrophil Count 4.2 X10^3/uL (2.0-7.7); Basophil# 0.02 X10^3/uL; Basophil% 0.3 % (0-1); Eosinophil# 0.07 X10^3/uL; Eosinophils% 1.2 % (0-5); Hematocrit 32.6 % (40-54); Lymphocyte # 0.76 X10^3/ul (0.83-4.51); Lymphocyte % 13.1 % (19-41); Mean Corp Hgb Conc 30.7 g/dL (32-36); Mean Corpuscular Hgb 30.5 pg (27.0-32.0); Mean Corpuscular Volume 99.4 fL (80-94); Monocyte# 0.46 X10^3/uL; Monocyte% 7.9 % (0-10); NRBC Flagged by Analyzer 0 % (0-5); Neutrophil # 4.21 X10^3/uL (2.7-7.7); Neutrophil % 72.8 % (47-70); Platelet Count 424 K/mm3 (150-450); RBC Distribution Width CV 17.8 % (11.6-14.6); RBC Distribution Width SD 63.5 fl (35.1-43.9); Red Blood Count 3.28 M/mm3 (4.6-6.2); White Blood Count 5.8 K/mm3 (4.4-11.0)
[2022-08-21 06:11] LABS: Anion Gap 7 (5-15); BUN 52 mg/dL (7-18); BUN/Creat Ratio 40.3 RATIO (10-20); Calcium,Total 7.9 mg/dL (8.5-10.1); Chloride 110 mmol/L (98-107); Creatinine, Serum 1.29 mg/dL (0.70-1.30); EST Glomerular Filtration Rate 56 mL/min (>60); Est Glom Filt Rate - Afr Amer 68 mL/min (>60); Glucose 188 mg/dL (74-106); Potassium 4.3 mmol/L (3.5-5.1); Sodium Level 141 mmol/L (136-145)
[2022-08-21] MEDS: Glucerna Shake 120 ML LIQUID PO ×4 (06:16→21:03)
[2022-08-21] MEDS: Iron Polysaccharide Complex 150 MG CAPSULE PO (06:21)
[2022-08-21 06:22] VITALS: BP 140/78; PULSE 52
[2022-08-21] MEDS: Acetaminophen 500 MG Tablet 1000 MG PO ×2 (06:22→20:45)
[2022-08-21] MEDS: Sertraline 50 MG Tablet 25 MG PO (06:24)
[2022-08-21] MEDS: Senna/Docusate Sodium 1 Tablet 2 TABLET PO (06:24)
[2022-08-21] MEDS: Pyridoxine HCl 100 MG Tablet PO (06:30)
[2022-08-21] MEDS: Polyethylene Glycol 3350 17 GM PACKET PO (06:30)
[2022-08-21] MEDS: Ascorbic Acid 500 MG Tablet PO (09:16)
[2022-08-21] MEDS: Juven (unflavored) Packet 1 PACKET PO ×2 (09:16→17:37)
[2022-08-21] MEDS: Clotrimazole/Betamethasone 1 Tube 1 APPLIC TOPICAL (09:18)
[2022-08-21] MEDS: Nystatin Powder 15gm Bottle 1 APPLIC TOPICAL ×2 (09:18→20:44)
--- NOTE | 2022-08-21 13:31 | DS.PCM_ITS ---
Providers Date of Admission: 08/06/22 Primary Care Physician: Dr. Gabriel Mares MD Consultations 08/07/22 02:49 Consult: Onc/Wound/grader tender Routine Comment: Reason for Consult:: Old pressure areas, open areas buttocks Reason For Visit: ORIF LEFT HIP Diagnosis Discharge Diagnosis (1) Debility: Status: Acute Code(s): R53.81 - Other malaise (2) Frequent falls: Status: Acute Code(s): R29.6 - Repeated falls (3) Closed left hip fracture: Status: Acute Code(s): S72.002A - Fracture of unspecified part of neck of left femur, initial encounter for closed fracture (4) Chronic kidney disease, stage 3b: Status: Acute Code(s): N18.32 - Chronic kidney disease, stage 3b (5) Coronary artery disease: Status: Acute Code(s): I25.10 - Atherosclerotic heart disease of [place] coronary artery without angina pectoris (6) Hyperlipidemia: Status: Acute Code(s): E78.5 - Hyperlipidemia, unspecified (7) BPH (benign prostatic hyperplasia): Status: Acute Code(s): N40.0 - Benign prostatic hyperplasia without lower urinary tract symptoms (8) Insomnia: Status: Acute Code(s): G47.00 - Insomnia, unspecified (9) Depression: Status: Acute Code(s): F32.A - Depression, unspecified (10) Thrombocytosis: Status: Acute Code(s): D75.839 - Thrombocytosis, unspecified Plan 86 year old male with below past medical history hospitalized for left hip fracture, underwent left hip ORIF nail 08/05/[address] York, admitted to TCU with debility, here for rehabilitation prior to discharge home with . * Debility - PT/OT. * Pain - Tylenol 1000mg q8, Tramadol 50mg q6h prn pain (1-5), Oxycodone 2.5mg q4h prn pain (6-10). * Bowel - Miralax 17gm daily, senna/colace 2 tablets bid, Dulcolax 10mg pr daily prn, MOM 30ml po daily prn. * Adult immunization - Administer pneumonia vaccine, covid19 vaccine, flu vaccine as appropriate. * DVT prophylaxis - Xarelto 10mg daily thru 09/05/2022. * Coronary artery disease - Metoprolol 25mg bid, Xarelto 10mg daily thru 09/05/2022, Aspirin 81mg daily starting 09/06/2022. * Hyperlipidemia - Atorvastatin 20mg qhs. * Tinea Corporis - Lotrisone topical daily. * Thrombocytosis - Hydrea 500mg 5 days/week. * Nutrition - Ryan 1 packet bidcm. * Insomnia - Melatonin 10mg qhs. * Skin irritation - Calmoseptine topical bid. * Vitamin B6 deficiency - B6 100mg daily. 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 * BPH - Tamsulosin 0.4mg daily. Medications at Discharge Home Medications aspirin 81 mg chewable tablet 81 mg PO QHS heart health 04/02/16 atorvastatin 20 mg tablet 20 mg PO QHS choleterol 04/02/16 ramipril 5 mg capsule 10 mg PO DAILY blood pressure 04/02/16 hydroxyurea 500 mg capsule (Hydrea) 500 mg PO MOTUWETHFR Check with primary doctor 12/08/17 tamsulosin 0.4 mg capsule 0.4 mg PO QHS bladder 10/19/21 metoprolol tartrate 25 mg tablet 25 mg PO BID Check with primary doctor 11/16/21 pyridoxine (vitamin B6) 100 mg tablet (Vitamin B-6) 100 mg PO DAILY Check with primary doctor 11/16/21 loperamide 2 mg tablet 2 mg PO Q6H PRN Diarrhea 08/04/22 melatonin 10 mg tablet 10 mg PO QHS Insomnia 08/04/22 sertraline 25 mg tablet 25 mg PO DAILY depression 08/04/22 clotrimazole-betamethasone 1 %-0.05 % topical cream 1 applic topical DAILY Check with primary doctor 08/06/22 acetaminophen 500 mg tablet 1,000 mg PO Q8 #0 tabs 08/21/22 ascorbic acid (vitamin C) 500 mg tablet 500 mg PO BREAKFAST 30 days #30 tabs 08/21/22 metoprolol tartrate 50 mg tablet 50 mg PO BID 30 days #60 tabs 08/21/22 mirtazapine 15 mg tablet 7.5 mg PO QHS 30 days #15 tabs 08/21/22 polysaccharide iron complex 150 mg iron capsule (Ferrex) 150 mg PO DAILY 30 days #30 caps 08/21/22 rivaroxaban 10 mg tablet (Xarelto) 10 mg PO DINNER 11 days #11 tabs 08/21/22 Hospital Course Operations - (ORIF left hip nail.) Procedures None Summary of Care Provided Minutes Spent on Discharge: 35 Hospital Course: 86 year old male with below past medical history hospitalized for left hip fracture, underwent left hip ORIF nail 08/05/[address] York, admitted to TCU with debility, here for rehabilitation prior to discharge home with . Discharge to [facility] 08/25/2022, [facility] PT/OT/ST. Physical Exam Const alert General Appearance: cooperative HEENT normocephalic Eyes PERRL and EOMs intact bilaterally Neck supple, no JVD and no carotid bruits Resp normal respiratory effort, normal air movement and clear to auscultation bilaterally Cardio regular rate and regular rhythm GI normal to inspection, nondistended, normoactive bowel sounds, non-tender and non-distended Extremity normal capillary refill General Extremity: Negative for edema Skin no rashes or lesions noted General Skin Exam: no breakdown Psych affect normal Appearance: appropriate Medical Records Data Medical Nutrition Assessment Dietitian: Malnutrition Criteria Met Start: 08/19/22 13:42 Freq: Status: Active Protocol: Document 08/19/22 13:42 RUDI (Rec: 08/19/22 13:43 RUDI [id number]) Nutrition Malnutrition Evidence of Malnutrition Exists Yes Malnutrition (severe): Acute Illness/Injury Evidenced By Suboptimal Energy Intake ( Severe),Weight Loss (Severe), Physical Changes (Moderate) Intake Problem Inadequate Oral Intake Status Inactive Problem Clinical Problem Acute Disease or Injury Related Malnutrition Etiology severe related to recent surgery and advanced age; res w/ inadequate oral intake at meals Signs/Symptoms as evidenced by res consuming <75% of est nutritional needs, 7.3% wt loss x 2 wks and fat/ muscle loss of face/upper and lower body; low acceptable BMI =17.9 Status Active Problem Biting/Chewing Difficulty Etiology related to dysphagia Signs/Symptoms as evidenced by need for mech altered consistency diet Status Active Problem Altered Nutrient-Related Laboratory Values Etiology related to diabetes Signs/Symptoms as evidenced by gluc 348 Status Active Problem Recommendation Dietitian Recommendations/Changes Will continue liberalized diet of Regular d/t poor po intake and signs/symptoms of malnutrition Will continue glucerna randellke w / medpass 4x/day for increased nutrition if consumed Will continue magic cup w/ lunch and dinner and smoothies w/ meals for increased nutrition if consumed. Rec discontinue Ryan bid once PI healed Rec appetite stimulant to try to encourage increased po intake Monitor wt trends and make additional rec as indicated Weight / BMI Weight Weight: 56.608 kg Body Mass Index (BMI) 19.3 ABG / Lab / Microbiology Data Result Diagrams: 08/21/22 05:28 08/21/22 05:28 Laboratory: Laboratory Results - last 24 hr 08/21/22 05:28: WBC 5.8, RBC 3.28 L, Hgb 10.0 L, Hct 32.6 L, MCV 99.4 H, MCH 30.5, MCHC 30.7 L, RDW Std Deviation 63.5 H, RDW Coeff of Andrew 17.8 H, Plt Count 424, MPV 11.0, Immature Gran % (Auto) 4.700 H, Neut % (Auto) 72.8 H, Lymph % (Auto) 13.1 L, Glenn % (Auto) 7.9, Eos % (Auto) 1.2, Baso % (Auto) 0.3, Absolute Neuts (auto) 4.2, Absolute Lymphs (auto) 0.76 L, Nucleated RBC % 0 08/21/22 05:28: Sodium 141, Potassium 4.3, Chloride 110 H, Carbon Dioxide 24.0, Anion Gap 7, BUN 52 H, Creatinine 1.29, Estim Creat Clear Calc 32.30, Est GFR (MDRD) Af Amer 68, Est GFR (MDRD) Non-Af 56 L, BUN/Creatinine Ratio 40.3 H, Glucose 188 H, Calcium 7.9 L Microbiology: Microbiology 08/10/22 05:50 Nasal Secretion SARS-CoV-2 Antigen (Rapid) - Final 08/08/22 10:45 Nasal Secretion SARS-CoV-2 Antigen (Rapid) - Final D/C Instructions Discharge Diet: No restrictions Discharge Activity: Return to Normal Activity, May Shower and Use Walker Weight Bearing Status: Weight bearing as tolerated Call your doctor if you observe: Fever of 101 or Higher, Inability to urinate, Inability to have a bowel movement, Shortness of breath, Dizziness, Fainting spells, Swelling in the ankles, Chest pain and Uncontrolled pain Additional Instructions: Discharge to [facility] 08/25/2022, [facility] PT/OT/ST. Please Follow Up With: Dr. York When: As scheduled. Meaningful Use Info Meaningful Use Diagnoses (Choose all that apply): None applicable Discharge Plan Admission Admit Date/Time: 08/06/22 19:03 Primary Reason for Your Visit: Debility. Attending Provider: Rafita Helms Chi Primary Care Provider: Gabriel Mares Instructions Additional Instructions / Restrictions: Discharge to [facility] 08/25/2022, [facility] PT/OT/ST. Discharge Orders/Prescriptions Prescriptions: New metoprolol tartrate 50 mg Tablet 50 mg PO BID 30 Days Qty: 60 0RF Xarelto 10 mg Tablet 10 mg PO DINNER 11 Days Qty: 11 0RF acetaminophen 500 mg Tablet 1,000 mg PO Q8 Qty: 0 0RF ascorbic acid (vitamin C) 500 mg Tablet 500 mg PO BREAKFAST 30 Days Qty: 30 0RF polysaccharide iron complex [Ferrex 150] 150 mg iron Capsule 150 mg PO DAILY 30 Days Qty: 30 0RF mirtazapine 15 mg Tablet 7.5 mg PO QHS 30 Days Qty: 15 0RF Continued hydroxyurea [Hydrea] 500 mg capsule 500 mg PO MOTUWETHFR Label Comments: 500 mg PO 1 tablet by mouth 5 days per week Rx Instructions: 500 mg PO 1 tablet by mouth 5 days per week atorvastatin 20 MG tablet 20 mg PO QHS Label Comments: cholesterol lowering aspirin 81 MG tablet,chewable 81 mg PO QHS Label Comments: heart health tamsulosin 0.4 mg capsule 0.4 mg PO QHS pyridoxine (vitamin B6) [Vitamin B-6] 100 mg Tablet 100 mg PO DAILY sertraline 25 mg tablet 25 mg PO DAILY melatonin 10 mg Tablet 10 mg PO QHS clotrimazole-betamethasone 1-0.05 % cream 1 applic topical DAILY Protocol: *Topical Application Instructions APPLICATION INSTRUCTIONS: apply to L foot, do not apply in between toes Rx Instructions: apply to affected left foot area twice daily Discontinued Xarelto 10 mg tablet 10 mg PO DINNER No Action ramipril 5 MG capsule 10 mg PO DAILY Label Comments: blood pressure metoprolol tartrate 25 mg tablet 25 mg PO BID loperamide 2 mg Tablet 2 mg PO Q6H PRN (Reason: Diarrhea) Referrals / Follow Up: Gabriel Mares MD [Primary Care Provider] - Disposition Disposition (needs filled in before D/C Order can be placed): Home Health Service
[2022-08-21 15:44] VITALS: BP 138/53; PULSE 64; RESP 16; TEMP 36.9; O2SAT 95
[2022-08-21] MEDS: Rivaroxaban 10 MG Tablet PO (17:36)
[2022-08-21 17:37] VITALS: PULSE 64
[2022-08-21] MEDS: Metoprolol Tartrate 50 MG Tablet PO (17:37)
[2022-08-21 20:42] VITALS: PULSE 50; RESP 16; O2SAT 96
[2022-08-21] MEDS: MELATONIN 10 MG TABLET PO (20:44)
[2022-08-21] MEDS: Mirtazapine 15 MG Tablet 7.5 MG PO (20:44)
[2022-08-21] MEDS: Atorvastatin Calcium 20 MG Tablet PO (20:45)
[2022-08-21] MEDS: Hydroxyurea 500 MG Capsule PO (20:45)
[2022-08-21] MEDS: Tamsulosin HCl 0.4 MG Capsule PO (20:45)
[2022-08-21] MEDS: Menthol/Lanolin/Calamine/Znox 113 GM Tube 1 APPLIC TOPICAL (20:50)
[2022-08-22] MEDS: Glucerna Shake 120 ML LIQUID PO ×4 (05:19→21:32)
[2022-08-22] MEDS: Iron Polysaccharide Complex 150 MG CAPSULE PO (05:19)
[2022-08-22] MEDS: Sertraline 50 MG Tablet 25 MG PO (05:20)
[2022-08-22] MEDS: Pyridoxine HCl 100 MG Tablet PO (05:21)
[2022-08-22] MEDS: Senna/Docusate Sodium 1 Tablet 2 TABLET PO ×2 (05:21→17:17)
[2022-08-22] MEDS: Acetaminophen 500 MG Tablet 1000 MG PO ×3 (05:21→21:37)
[2022-08-22 05:25] VITALS: BP 148/53; PULSE 80
[2022-08-22] MEDS: Ascorbic Acid 500 MG Tablet PO (09:06)
[2022-08-22] MEDS: Juven (unflavored) Packet 1 PACKET PO ×2 (09:06→17:17)
[2022-08-22] MEDS: Nystatin Powder 15gm Bottle 1 APPLIC TOPICAL ×2 (11:41→21:48)
[2022-08-22] MEDS: Clotrimazole/Betamethasone 1 Tube 1 APPLIC TOPICAL (11:42)
[2022-08-22] MEDS: Menthol/Lanolin/Calamine/Znox 113 GM Tube 1 APPLIC TOPICAL ×2 (11:42→21:49)
[2022-08-22 16:00] VITALS: BP 123/68; PULSE 79; RESP 17; TEMP 36.8; O2SAT 96
[2022-08-22 17:17] VITALS: BP 152/84; PULSE 80
[2022-08-22] MEDS: Metoprolol Tartrate 50 MG Tablet PO (17:17)
[2022-08-22] MEDS: Rivaroxaban 10 MG Tablet PO (17:17)
[2022-08-22 21:18] VITALS: PULSE 53; RESP 16; O2SAT 94
[2022-08-22] MEDS: Tamsulosin HCl 0.4 MG Capsule PO (21:37)
[2022-08-22] MEDS: MELATONIN 10 MG TABLET PO (21:38)
[2022-08-22] MEDS: Atorvastatin Calcium 20 MG Tablet PO (21:38)
[2022-08-22] MEDS: Mirtazapine 15 MG Tablet 7.5 MG PO (21:38)
[2022-08-23] MEDS: Acetaminophen 500 MG Tablet 1000 MG PO ×2 (06:06→21:41)
[2022-08-23] MEDS: Glucerna Shake 120 ML LIQUID PO ×4 (06:06→21:41)
[2022-08-23] MEDS: Sertraline 50 MG Tablet 25 MG PO (06:06)
[2022-08-23] MEDS: Iron Polysaccharide Complex 150 MG CAPSULE PO (06:06)
[2022-08-23 06:07] VITALS: BP 121/50; PULSE 76
[2022-08-23] MEDS: Pyridoxine HCl 100 MG Tablet PO (06:07)
[2022-08-23] MEDS: Metoprolol Tartrate 50 MG Tablet PO ×2 (06:07→18:09)
[2022-08-23] MEDS: Juven (unflavored) Packet 1 PACKET PO ×2 (08:31→18:09)
[2022-08-23] MEDS: Ascorbic Acid 500 MG Tablet PO (08:31)
[2022-08-23 11:00] VITALS: BP 131/48; PULSE 70; RESP 18; TEMP 36.6; O2SAT 95
--- NOTE | 2022-08-23 11:12 | CT_ITS ---
We are attempting to reach an attending provider to discuss findings. An addendum with communication details will be sent when the communication is complete. STUDY: CT HEAD STROKE PROTOCOL W/O CONTRAST INJECTION REASON FOR EXAM: Male, 86 years old. Mental status change RADIATION DOSAGE (If Supplied By Facility): CTDIvol = ( ) mGy, DLP = ( ) mGycm TECHNIQUE: Transaxial CT imaging of the brain was performed without administration of intravenous contrast material. Individualized dose optimization techniques were used for this CT. COMPARISON: 05/29/2022 FINDINGS: Normal soft tissue structures. Normal calvarium. There is moderate cerebral atrophy with widening of the extra-axial spaces and ventricular dilatation. There are areas of decreased attenuation within the white matter tracts of the supratentorial brain, consistent with microvascular disease changes. Normal basal ganglia and thalami. Normal brainstem. There is mild cerebellar atrophy. There is no intracranial hemorrhage. There are no findings of an acute ischemic infarction. Normal visualized paranasal sinuses. ASPECT score: 10 CT/STROKE Brain/Head without Cont IMPRESSION: Chronic involutional changes of the brain. No acute hemorrhage or significant interval change Electronically Signed: Kirill Malin MD at 11:22 EST ,
[2022-08-23 11:20] LABS: Bedside Glucose 173 mg/dL (74-106)
--- NOTE | 2022-08-23 11:56 | PN.HOSP_ITS ---
Hospitalist Note Stroke team called for concern for a right facial droop. Daughter had noticed right facial droop and expressed concern and stroke team was called. On exam exam, patient had issues with language with some aphasia not being able to recognize certain objects on the NIH score as well as reading. No facial droop was noted on exam. Patient did have some some food discoloration of his right nasolabial fold. Patient was sent down to CAT scan where CAT scan was performed and the radiologist called me and said that there was no acute process noted. Patient's NIH score was 2 for aphasia and some mild dysarthria. Discussed the case with the patient's daughter states patient has never had a stroke but does have a history of normal pressure hydrocephalus. Patient does not have a shunt as the risks and benefits have previously been discussed and they elected not to proceed with any surgical intervention. No additional stroke work-up is ne cessary as patient's exam is more chronic findings with his history of normal pressure hydrocephalus no facial droop was identified on my examination and patient does have issues with mentation due to his prior history of normal pressure hydrocephalus. Case discussed earlier with Dr. Helms. Greater than 35 minutes of which greater than for present time was at bedside with the patient, examining the patient, writing stroke team down in the emergency room and ordering the CAT scan and speaking with family as well as radiology. Visit Charges Inpatient E&M: [id number] [facility] L3
[2022-08-23] MEDS: Clotrimazole/Betamethasone 1 Tube 1 APPLIC TOPICAL (12:18)
[2022-08-23] MEDS: Nystatin Powder 15gm Bottle 1 APPLIC TOPICAL ×2 (12:21→21:41)
[2022-08-23] MEDS: Menthol/Lanolin/Calamine/Znox 113 GM Tube 1 APPLIC TOPICAL ×2 (12:23→21:42)
[2022-08-23 16:00] VITALS: BP 124/43; PULSE 75; RESP 16; TEMP 36.2; O2SAT 98
--- NOTE | 2022-08-23 16:54 | NURSING ---
Stroke Alert called at 1056 d/t pt having right sided facial droop that was new. Last known well was 1000. BP 131/48 Pulse 70. All other signs were negative. Pt sent down for CT scan. Per Dr. Falk pt was okay to come back to TCU CT showed no acute findings. Daughter still concerned with facial droop as it was a new symptoms Dr. Falk Talked with pt's Daughter. Dr. Helms updated and N.O. for MRI to be completed on 08/24/22.
[2022-08-23 18:09] VITALS: BP 152/55; PULSE 74
[2022-08-23] MEDS: Rivaroxaban 10 MG Tablet PO (18:09)
[2022-08-23] MEDS: Atorvastatin Calcium 20 MG Tablet PO (21:41)
[2022-08-23] MEDS: Mirtazapine 15 MG Tablet 7.5 MG PO (21:41)
[2022-08-23] MEDS: MELATONIN 10 MG TABLET PO (21:41)
[2022-08-23] MEDS: Tamsulosin HCl 0.4 MG Capsule PO (21:41)
--- NOTE | 2022-08-23 21:51 | NURSING ---
Patient c/o pain in bilateral heels. Upon assessment, mepilex to left heel was rolled up around edges. Removed mepilex. Both heels boggy with palpation, no redness noted. Lotion applied, heels floated off mattress with pillow. Will continue to monitor.
[2022-08-24] MEDS: Glucerna Shake 120 ML LIQUID PO ×4 (04:48→20:59)
[2022-08-24] MEDS: Acetaminophen 500 MG Tablet 1000 MG PO ×3 (04:48→21:02)
[2022-08-24] MEDS: Iron Polysaccharide Complex 150 MG CAPSULE PO (04:48)
[2022-08-24] MEDS: Senna/Docusate Sodium 1 Tablet 2 TABLET PO (04:49)
[2022-08-24] MEDS: Pyridoxine HCl 100 MG Tablet PO (04:49)
[2022-08-24] MEDS: Sertraline 50 MG Tablet 25 MG PO (04:49)
[2022-08-24 04:50] VITALS: BP 137/45; PULSE 70
[2022-08-24] MEDS: Metoprolol Tartrate 50 MG Tablet PO ×2 (04:50→18:03)
[2022-08-24] MEDS: Menthol/Lanolin/Calamine/Znox 113 GM Tube 1 APPLIC TOPICAL ×2 (08:24→21:04)
[2022-08-24] MEDS: Ascorbic Acid 500 MG Tablet PO (08:24)
[2022-08-24] MEDS: Juven (unflavored) Packet 1 PACKET PO ×2 (08:24→18:04)
[2022-08-24] MEDS: Nystatin Powder 15gm Bottle 1 APPLIC TOPICAL ×2 (08:25→21:04)
[2022-08-24] MEDS: Clotrimazole/Betamethasone 1 Tube 1 APPLIC TOPICAL (08:25)
[2022-08-24 08:31] VITALS: PULSE 72; RESP 16; O2SAT 95
--- NOTE | 2022-08-24 08:42 | NURSING ---
staff attempting to get precert for MRI today of brain. no facial droop noted this AM. slight weakness noted to Left lower extremity. pt alert to self, thought he was at [facility]. reoriented to place and time. up in chair, legs elevated. call light in reach.
--- NOTE | 2022-08-24 11:56 | CASEMGMT ---
Social Work BIMS (03/04) and PHQ-9 (10/16) completed for MDS assessment. Kathy Pelaez MSW CONTINUITY READER
--- NOTE | 2022-08-24 11:57 | CASEMGMT ---
Social Work BIMS () and PHQ-9 (11/16) completed for MDS assessment. Kathy Pelaez MSW ADOLESCENT MEDICINE SPECIALIST
[2022-08-24 12:19] VITALS: BP 134/42; PULSE 57; RESP 16; TEMP 36.3; O2SAT 97
--- NOTE | 2022-08-24 12:50 | RAD_ITS ---
STUDY: X-RAY CHEST REASON FOR EXAM: Male, 86 years old. Cough TECHNIQUE: AP and lateral views of the chest. COMPARISON: Comparison is made with prior study 08/04/2000 FINDINGS: Hyperinflation. Hyperinflation. The lungs are clear. There is no demonstrated pleural abnormality. Sternal cerclage wires and vascular clips are present from a prior sternotomy and coronary artery bypass graft procedure (CABG). Normal mediastinum and clementina. Normal visualized pulmonary arteries. There is atherosclerotic calcification of the aortic arch with tortuosity. Normal visualized thoracic spine. Normal visualized ribs, clavicles, and shoulders. There is no demonstrated abnormality of the visualized soft tissue structures of the upper abdomen. RAD/Chest PA and Lateral IMPRESSION: Hyperinflation. The lungs are clear. Electronically Signed: Devan Alamo MD at 13:23 EST ,
--- NOTE | 2022-08-24 12:52 | NURSING ---
pt noted with moist cough, nasal drng. nasal drng clear, unable to assess sputum d/t none at this time. afebrile. lungs diminished t/o. sat 92-97% on room air. dr carmen ryder, new order covid, resp panel and chest xray. will update daughter.
--- NOTE | 2022-08-24 13:00 | NURSING ---
venecia updated on all orders, she also mentioned that pt hallucinating and believes he is at a bank. will update Dr Helms. pt to be down to MRI at 1430.
--- NOTE | 2022-08-24 17:40 | NURSING ---
Addendum entered by Krystal Alexandre 08/24/22 18:06: dr carmen lovelace Original Note: dr morales notified of MRI results showing CVA, daughter updated and DR morales spoke with daughter regarding his mammogram results, decision by DR morales and daughter not to biopsy area. Discharge back to [facility] on hold for now.
[2022-08-24 18:03] VITALS: BP 150/66; PULSE 64
[2022-08-24] MEDS: Tamsulosin HCl 0.4 MG Capsule PO (21:00)
[2022-08-24] MEDS: Hydroxyurea 500 MG Capsule PO (21:00)
[2022-08-24] MEDS: Atorvastatin Calcium 20 MG Tablet PO (21:01)
[2022-08-24] MEDS: MELATONIN 10 MG TABLET PO (21:01)
[2022-08-24] MEDS: Mirtazapine 15 MG Tablet 7.5 MG PO (21:01)
[2022-08-25 04:54] VITALS: BP 138/68; PULSE 65
[2022-08-25] MEDS: Acetaminophen 500 MG Tablet 1000 MG PO (04:54)
[2022-08-25] MEDS: Polyethylene Glycol 3350 17 GM PACKET PO (04:54)
[2022-08-25] MEDS: Metoprolol Tartrate 50 MG Tablet PO (04:54)
[2022-08-25] MEDS: Senna/Docusate Sodium 1 Tablet 2 TABLET PO (04:54)
[2022-08-25] MEDS: Pyridoxine HCl 100 MG Tablet PO (04:55)
[2022-08-25] MEDS: Iron Polysaccharide Complex 150 MG CAPSULE PO (04:55)
[2022-08-25] MEDS: Sertraline 50 MG Tablet 25 MG PO (04:55)
[2022-08-25] MEDS: Glucerna Shake 120 ML LIQUID PO (04:59)
[2022-08-25] MEDS: Ascorbic Acid 500 MG Tablet PO (07:47)
[2022-08-25] MEDS: Juven (unflavored) Packet 1 PACKET PO (07:47)
[2022-08-25] MEDS: Aspirin 81 MG TAB.CHEW PO (07:49)
--- NOTE | 2022-08-25 08:35 | CASEMGMT ---
Social Work Per chart review, DC is on hold for pt. VINICIUS left message with Socorro at [facility]. Updated Anika at [facility]. Will await new DC date. VINICIUS to continue to follow. TIFFANY EspinosaW
--- NOTE | 2022-08-25 11:11 | CASEMGMT ---
Social Work Received communication from Dr Helms stating he spoke with dtr last evening. Dtr inquired about [place] with hospice services. agrees with hospice and requesting referral. Would like pt to stabilize more prior to DC. Dtr present with pt in room. SW spoke with dtr about request for hospice. Answered questions. Dtr inquired about [facility]. SW educated to IPU qualifications and at this time, pt is stable. Dtr expressed understanding. SW offered to make referral to hospice and have dtr/ meet/sign consents. SW to coordinate DC plans as needed. Dtr agreeable and requesting referral to [facility]. SW to continue to follow. Kathy Pelaez, JANITORIAL ASSISTANT SKY [employer] YARDER
--- NOTE | 2022-08-25 13:47 | NURSING ---
Called into room earlier by daughter, patient having moist cough, struggling after having a few sips of water. Lungs mostly clear/diminished. He had also vomited small amount, appeared to have small blood clots in emesis. Discussed plan with daughter who says she just wants her dad kept comfortable. 02 sat in mid-high 80s on RA, placed on 2LNC, 02 levels up to low 90s. Checked back a bit later and daughter shared that when she asked her dad what she could do for him he responded to let him . She said they were planning on him discharging hospice care. Updated speech therapist who checked on patient and recommended leaving him NPO. Daughter signed DNRCC. Updated Dr Helms, asked for med to keep him calm, family saying he's become a bit restless. Order for IV ativan 0.5 q4hrs PRN.
--- NOTE | 2022-08-25 14:30 | CASEMGMT ---
Social Work Notified by nursing that pt is rapidly declining since AM and possibly IPU appropriate. SW communicated with Dr. Helms and he is agreeable to IPU referral. SW phoned referral to Julia at [facility]. Faxed clinicals. Hospice nurse to arrive within the hour to complete IPU assessment. Family still present. SW updated family and provided emotional support. Family expressed understanding and appreciative. Kathy Pelaez, VETERINARY X RAY OPERATOR ANALYTICS INTERN
--- NOTE | 2022-08-25 15:56 | CHAPLAIN ---
Type of Pastoral Visit ___ Initial Visit _x__ Follow-up Visit ___ On-call Visit ___ General Patient Visit ___ Spiritual Assessment ___ Family Conference ___ Bereavement ___ Rapid Response ___ Code Blue ___ Other (describe below) Pastoral Care Referral From ___ Patient ___ Family _x__ Nurse ___ Physician ___ Key Maker ___ Executive Communications Manager ___ Other (describe below) Sacrament/Intervention _x__ Active listening ___ Anointing ___ Religious ___ Bereavement ___ Communion ___ Anne exploration ___ _x__ Life review ___ Prayer ___ Reconciliation ___ Sacrament of Sick _x__ Supportive presence ___ Wedding ___ Other (describe below) Pastoral Comments notified by RN that patient is declining and that family has chosen to go with hospice now; RN recommended a visit at this time to be present with family; pt is in the bed and awake although he did not speak even when spoken to directly; pt did make hand gestures; , daughter, and two other family members are in the room; gives more details and talks about her own volunteer work with hospice in the past; this motor coach operator made attempts to engage the patient; pt did indicate that he was tired; spouse states that pt did not go to zoroastrianism or show interest in zoroastrianism although she attends; took patient's hand and he held it for a bit; offered support to pt and family; gave time for spouse and others to talk and process the decisions being made; spouse asks for future visits if possible and according to conditions of pt
--- NOTE | 2022-08-25 16:15 | CASEMGMT ---
Social Work Hospice nurse assessment completed and pt qualifies. Bed is available to transfer to [facility] this today. [facility] to transport. Plan: DC to [facility] 08/25 TIFFANY Espinosa
[2022-08-25] MEDS: Menthol/Lanolin/Calamine/Znox 113 GM Tube 1 APPLIC TOPICAL (16:48)
[2022-08-25] MEDS: oxyCODONE 5 MG Tablet 2.5 MG PO (17:31)
[2022-08-25] MEDS: LORazepam 2 MG/ML Syringe 0.5 MG IV (17:33)
[2022-08-25] MEDS: 0.9% Saline Lock 10 ML Syringe IV (17:34)
== END 2022-08-25 18:55 | disposition hospice, inpatient (51) | DRG 559 ==
PROVIDERS: Admitting Provider Family Medicine Geriatric Medicine; PCP Internal Medicine; Visit Provider Family Medicine Geriatric Medicine
DX: S72.002D Fracture of unspecified part of neck of left femur, subsequent encounter for closed fracture with routine healing (principal); I63.9 Cerebral infarction, unspecified; L89.312 Pressure ulcer of right buttock, stage 2; E11.22 Type 2 diabetes mellitus with diabetic chronic kidney disease; E78.00 Pure hypercholesterolemia, unspecified; B35.4 Tinea corporis; L89.322 Pressure ulcer of left buttock, stage 2; N18.32 Chronic kidney disease, stage 3b; I25.10 Atherosclerotic heart disease of native coronary artery without angina pectoris; I12.9 Hypertensive chronic kidney disease with stage 1 through stage 4 chronic kidney disease, or unspecified chronic kidney disease; I25.5 Ischemic cardiomyopathy; W19.XXXD Unspecified fall, subsequent encounter; F32.A Depression, unspecified; N40.0 Benign prostatic hyperplasia without lower urinary tract symptoms; G47.00 Insomnia, unspecified; Z79.01 Long term (current) use of anticoagulants; Z87.891 Personal history of nicotine dependence; Z79.899 Other long term (current) drug therapy; Z79.82 Long term (current) use of aspirin; Z23 Encounter for immunization
CPT/HCPCS: 36415; 70450; 71046; 74230; 76642; 77062; 77066; 80048; 82962; 85014; 85018; 85025; 87426; 87633; 87811; 90677; 92507; 92523; 92526; 92610; 92611; 93005; 97110; 97116; 97162; 97166; 97530; 97535; 97802; G0009; A4216; G0279

== ENCOUNTER → 2022-08-18 | Outpatient (CLI) | payer MEDICARE, SELFPAY ==
--- NOTE | 2022-08-18 09:25 | BI_ITS ---
MAMMOGRAPHY - BILATERAL DIAGNOSTIC REASON FOR EXAM: Male, 86 years old. Left breast tenderness. PERTINENT HISTORY: Non-contributory. TECHNIQUE: Digital bilateral breast claudette (3D mammographic acquisition) in the CC and MLO projections. 2-D mediolateral oblique (MLO) and craniocaudad (CC) views of both breasts were obtained. CAD: Full Field Digital Mammography with Computer Added Detection was performed. COMPARISON: None. Baseline examination. FINDINGS: Breast Composition: Heterogeneous fibroglandular tissue in the left retroareolar region. There are no dominant masses or suspicious calcifications. Findings suggest lumbar gynecomastia of the left breast. Correlation with ultrasound is recommended. No other significant abnormalities are identified. BI/DIAG MAMM W/CAD, BILAT IMPRESSION: Heterogeneously dense retroareolar breast tissue in the left breast suggestive of gynecomastia. Correlation with ultrasound is recommended. ASSESSMENT CATEGORY: BIRADS Category 0: Incomplete. Need additional imaging evaluation. A letter regarding these results will be sent to the patient by the facility within 30 days. Approximately 10% of breast cancers are not detected by mammography. A normal mammogram should not delay biopsy of a clinically suspicious abnormality. Electronically Signed: Devan Alamo MD at 10:27 EST ,
--- NOTE | 2022-08-18 09:51 | US_ITS ---
STUDY: ULTRASOUND BREAST - LEFT REASON FOR EXAM: Male, 86 years old. Left breast tenderness. TECHNIQUE: Axial and longitudinal images of the LEFT breast were performed with a high resolution ultrasound transducer. # OF IMAGES: 26 COMPARISON: Comparison is made with prior mammogram done earlier today. FINDINGS: LEFT Breast: In the retroareolar region of the left breast, there is evidence of a 3.6 cm x 3.4 cm x 0.9 cm hypoechoic slightly irregular mass. Biopsy recommended. US/Breast Limited Unilateral IMPRESSION: 3.6 cm x 3.4 cm x 0.9 cm hypoechoic slightly irregular mass corresponding to the palpable abnormality. Biopsy recommended. ASSESSMENT CATEGORY: BIRADS Category 4: Suspicious - Biopsy Should Be Considered. A letter regarding these results will be sent to the patient by the facility within 30 days. Electronically Signed: Devan Alamo MD at 15:19 EST ,
== END | disposition home or self-care (01) ==
PROVIDERS: PCP Internal Medicine; Visit Provider Family Medicine Geriatric Medicine
DX: N64.4 Mastodynia (principal)
CPT/HCPCS: 76642; 77062; 77066; G0279

== ENCOUNTER → 2022-08-24 | Outpatient (CLI) | payer MEDICARE, SELFPAY ==
--- NOTE | 2022-08-24 13:26 | MRI_ITS ---
We are attempting to reach an attending provider to discuss findings. An addendum with communication details will be sent when the communication is complete. EXAM: MR HEAD WITHOUT INTRAVENOUS CONTRAST CLINICAL INDICATION: CVA TECHNIQUE: Multiplanar and multisequence MR images of the brain were obtained without intravenous contrast. This report was created using [employer] report generation technology. COMPARISON: CT brain 08/23/2022 FINDINGS: BRAIN AND EXTRA-AXIAL SPACES: 7 mm focus of restricted diffusion within the right parietal lobe suggestive of acute ischemia. Increased T2 signal intensity within the cerebral white matter suggestive of chronic microvascular change. Prominence of the cortical sulci and ventricles related to volume loss change. No intra- or extra-axial hemorrhage. No intracranial mass or mass effect. Posterior fossa structures are unremarkable. Basal cisterns are patent. SELLA: Normal. Normal sella turcica, pituitary gland, infundibular stalk, optic chiasm and hypothalamus. AUDITORY SYSTEM: Normal. The internal auditory canals are patent. BONES/JOINTS: Intact calvarium. SINUSES: Unremarkable as visualized. Clear. MASTOID AIR CELLS: Unremarkable as visualized. Clear. ORBITS: Unremarkable as visualized. Both globes, extraocular muscles, optic nerves and retrobulbar fat appear unremarkable. VASCULATURE: Unremarkable as visualized. Normal flow voids in the major intracranial circulation. MRI/Brain without Contrast IMPRESSION: 7 mm focus of acute ischemia right parietal lobe. Chronic microvascular change. Electronically Signed: Eric Alexis MD at 16:11 EST ,
== END | disposition home or self-care (01) ==
LOC: MRI 11:31
PROVIDERS: PCP Internal Medicine; Referring Provider Family Medicine Geriatric Medicine; Visit Provider Family Medicine Geriatric Medicine
DX: I63.9 Cerebral infarction, unspecified (principal)
CPT/HCPCS: 70551